=== PATIENT | male | born 1975 | race Caucasian/White ===

== ENCOUNTER 2018-05-14 10:30 | Outpatient (CLI) | payer MEDICARE, MEDICAID, SELFPAY ==
[2018-05-14 11:52] LABS: ALT 33 U/L (12-78); AST 21 U/L (15-37); Albumin 3.5 g/dL (3.4-5.0); Alkaline Phosphatase 92 U/L (46-116); Anion Gap 8.4 mmol/L (3-11); BUN 18 mg/dL (7-18); Bilirubin, Total 0.5 mg/dL (0.2-1.0); CO2 27.6 mmol/L (21.0-32.0); CREATININE 1.16 mg/dL (0.70-1.30); Calcium 8.8 mg/dL (8.5-10.1); Chloride 106 mmol/L (98-107); Cholesterol 132 mg/dL (50-200); Glucose 99 mg/dL (70-100); HDL Cholesterol 38 mg/dL (40-60); Potassium 4.3 mmol/L (3.5-5.1); Sodium 142 mmol/L (136-145); Total Protein 6.6 g/dL (6.4-8.2); Triglyceride 75 mg/dL (30-150)
[2018-05-14 12:40] LABS: LDL CHOLESTEROL 83 mg/dL (<100)
== END 2018-05-14 10:50 ==
PROVIDERS: PCP Nurse Practitioner; Visit Provider Nurse Practitioner
DX: E66.9 Obesity, unspecified (principal); E78.5 Hyperlipidemia, unspecified
CPT/HCPCS: 36415; 80053; 80061; 83721

== ENCOUNTER 2018-09-06 09:44 | Outpatient (CLI) | payer MEDICARE, MEDICAID, SELFPAY ==
[2018-09-06 11:38] LABS: ALT 64 U/L (12-78); AST 37 U/L (15-37); Alkaline Phosphatase 96 U/L (46-116); Anion Gap 11.1 mmol/L (3-11); BUN 16 mg/dL (7-18); Bilirubin, Total 0.9 mg/dL (0.2-1.0); CO2 27.9 mmol/L (21.0-32.0); CREATININE 1.28 mg/dL (0.70-1.30); Calcium 9.3 mg/dL (8.5-10.1); Chloride 104 mmol/L (98-107); Cholesterol 137 mg/dL (50-200); Glucose 98 mg/dL (70-100); HDL Cholesterol 35 mg/dL (40-60); LDL CHOLESTEROL 85 mg/dL (<100); Potassium 4.2 mmol/L (3.5-5.1); Sodium 143 mmol/L (136-145); Total Protein 7.3 g/dL (6.4-8.2); Triglyceride 110 mg/dL (30-150)
== END 2018-09-06 10:04 ==
PROVIDERS: PCP Nurse Practitioner; Visit Provider Nurse Practitioner Family
DX: F32.1 Major depressive disorder, single episode, moderate (principal); Z79.899 Other long term (current) drug therapy; R63.5 Abnormal weight gain
CPT/HCPCS: 36415; 80053; 80061; 83721

== ENCOUNTER 2019-05-21 08:48 | Outpatient (CLI) | payer MEDICARE, MEDICAID, SELFPAY ==
[2019-05-21 10:15] LABS: ALT 46 U/L (16-63); AST 29 U/L (15-37); Albumin 3.7 g/dL (3.4-5.0); Alkaline Phosphatase 91 U/L (46-116); Anion Gap 9.4 mmol/L (3-11); BUN 15 mg/dL (7-18); Bilirubin, Total 0.4 mg/dL (0.2-1.0); CO2 27.6 mmol/L (21.0-32.0); CREATININE 1.21 mg/dL (0.70-1.30); Calcium 8.9 mg/dL (8.5-10.1); Calculated LDL 62 mg/dL; Chloride 105 mmol/L (98-107); Cholesterol 121 mg/dL (<200); Glucose 100 mg/dL (74-106); HDL Cholesterol 31 mg/dL (40-60); Potassium 4.4 mmol/L (3.5-5.1); Sodium 142 mmol/L (136-145); Triglyceride 140 mg/dL (<150)
== END 2019-05-21 09:08 ==
PROVIDERS: PCP Nurse Practitioner; Visit Provider Nurse Practitioner Family
DX: F32.1 Major depressive disorder, single episode, moderate (principal); Z79.899 Other long term (current) drug therapy; R63.5 Abnormal weight gain; E78.6 Lipoprotein deficiency; E66.9 Obesity, unspecified
CPT/HCPCS: 36415; 80053; 80061

== ENCOUNTER 2020-04-29 04:09 | Outpatient (CLI) | payer MEDICARE, MEDICAID, SELFPAY ==
[2020-04-29 08:34] LABS: HCT 44.9 % (40.0-50.0); HGB 14.8 g/dL (13.5-17.5); MCH 30.6 pg (27.0-33.0); MCV 92.8 fL (80-95); MPV 9.2 fL (8.0-11.0); Platelet Count 311 10^3/uL (130-400); RBC 4.84 10^6/uL (4.36-5.78); RDW 13.4 % (11.8-14.1); RDW-SD 45.6 fL; WBC 10.96 10^3/uL (4.4-10.8)
[2020-04-29 08:48] LABS: Hemoglobin A1C 5.7 % (<5.7)
[2020-04-29 09:20] LABS: ALT 45 U/L (16-63); AST 28 U/L (15-37); Albumin 3.6 g/dL (3.4-5.0); Alkaline Phosphatase 81 U/L (46-116); Anion Gap 7.3 mmol/L (3-11); BUN 15 mg/dL (7-18); Bilirubin, Total 0.6 mg/dL (0.2-1.0); CO2 28.7 mmol/L (21.0-32.0); CREATININE 1.31 mg/dL (0.70-1.30); Calcium 8.9 mg/dL (8.5-10.1); Calculated LDL 125 mg/dL (<100); Chloride 105 mmol/L (98-107); Cholesterol 183 mg/dL (<200); Estimated GFR 58.91 (mL/min/1.73m2); Glucose 92 mg/dL (74-106); HDL Cholesterol 28 mg/dL (40-60); Potassium 4.4 mmol/L (3.5-5.1); Sodium 141 mmol/L (136-145); Total Protein 6.8 g/dL (6.4-8.2); Triglyceride 152 mg/dL (<150)
== END 2020-04-29 04:29 ==
PROVIDERS: PCP Nurse Practitioner; Visit Provider Nurse Practitioner
DX: E78.6 Lipoprotein deficiency (principal); E11.9 Type 2 diabetes mellitus without complications; I26.99 Other pulmonary embolism without acute cor pulmonale; G47.33 Obstructive sleep apnea (adult) (pediatric); E66.9 Obesity, unspecified
CPT/HCPCS: 36415; 80053; 80061; 85027; 83036

== ENCOUNTER 2020-12-09 02:23 | Outpatient (CLI) | payer MEDICARE, MEDICAID, SELFPAY ==
[2020-12-09 12:49] LABS: HCT 46.7 % (40.0-50.0); HGB 15.6 g/dL (13.5-17.5); MCHC 33.4 % (32.0-36.0); MCV 92.7 fL (80-95); MPV 9.4 fL (8.0-11.0); Platelet Count 353 10^3/uL (130-400); RBC 5.04 10^6/uL (4.36-5.78); RDW 13.1 % (11.8-14.1); RDW-SD 44.9 fL; WBC 15.97 10^3/uL (4.4-10.8)
[2020-12-09 13:56] LABS: ALT 86 U/L (16-63); AST 52 U/L (15-37); Albumin 3.6 g/dL (3.4-5.0); Alkaline Phosphatase 84 U/L (46-116); Anion Gap 11.9 mmol/L (3-11); BUN 15 mg/dL (7-18); Bilirubin, Total 0.5 mg/dL (0.2-1.0); CO2 27.1 mmol/L (21.0-32.0); CREATININE 1.1 mg/dL (0.70-1.30); Calculated LDL 111 mg/dL (<100); Chloride 104 mmol/L (98-107); Cholesterol 167 mg/dL (<200); Glucose 86 mg/dL (74-106); HDL Cholesterol 29 mg/dL (40-60); Potassium 4.1 mmol/L (3.5-5.1); Sodium 143 mmol/L (136-145); Total Protein 7.1 g/dL (6.4-8.2); Triglyceride 138 mg/dL (<150)
== END 2020-12-09 02:24 | disposition home or self-care (01) ==
LOC: LBO 02:23
PROVIDERS: PCP Nurse Practitioner; Visit Provider Nurse Practitioner
DX: I10 Essential (primary) hypertension (principal); F32.9 Major depressive disorder, single episode, unspecified; E66.9 Obesity, unspecified; E11.9 Type 2 diabetes mellitus without complications; E78.6 Lipoprotein deficiency; J69.0 Pneumonitis due to inhalation of food and vomit; G47.33 Obstructive sleep apnea (adult) (pediatric)
CPT/HCPCS: 36415; 80053; 80061; 85027; 83036

== ENCOUNTER 2020-12-29 04:06 | Outpatient (CLI) | payer MEDICARE, MEDICAID, SELFPAY ==
[2020-12-29 12:15] LABS: Abs Immature Grans 0.08 10^3/uL (0.0-0.06); Absolute Basophil Count 0.08 10^3/uL (0.0-0.2); Absolute Eosinophil Count 1.23 10^3/uL (0.0-0.7); Basophils % 0.6; ESR 20 mm/hr (0-15); Eosinophils % 9.2; HCT 45.7 % (40.0-50.0); Immature Grans % 0.6; Lymphocytes % 35.8; MCH 30.9 pg (27.0-33.0); MCHC 32.8 % (32.0-36.0); MCV 94.2 fL (80-95); MPV 9.3 fL (8.0-11.0); Neutrophils % 47.8; Nucleated RBC 0 %; Platelet Count 327 10^3/uL (130-400); RBC 4.85 10^6/uL (4.36-5.78); RDW 13.1 % (11.8-14.1); RDW-SD 45.5 fL; WBC 13.39 10^3/uL (4.4-10.8)
[2020-12-29 12:16] LABS: Absolute Lymphocyte Count 4.79 10^3/uL (1.2-3.4)
[2020-12-29 13:40] LABS: ALT 78 U/L (16-63); AST 47 U/L (15-37); Albumin 3.4 g/dL (3.4-5.0); Alkaline Phosphatase 90 U/L (46-116); Bilirubin, Direct 0.1 mg/dL (0.0-0.2); Bilirubin, Total 0.3 mg/dL (0.2-1.0); C-Reactive Protein 0.79 mg/dL (0.0-0.3); Total Protein 6.8 g/dL (6.4-8.2)
[2020-12-30 09:34] LABS: HBs Antibody, Quant <3.1 mIU/mL (See Note); Hepatitis B Surface Ab Negative (See Note)
[2020-12-30 09:46] LABS: Hepatitis B Surface Ag Negative (Negative)
[2020-12-30 10:06] LABS: Hepatitis C Ab w Rflx HCV PCR Negative (Negative)
[2020-12-30 10:30] LABS: Hep B Core Antibody Negative (Negative)
== END 2020-12-29 04:07 | disposition home or self-care (01) ==
PROVIDERS: PCP Nurse Practitioner; Visit Provider Nurse Practitioner
DX: R79.89 Other specified abnormal findings of blood chemistry (principal); D72.829 Elevated white blood cell count, unspecified; E66.9 Obesity, unspecified; J45.909 Unspecified asthma, uncomplicated
CPT/HCPCS: 36415; 80076; 85652; 86704; 86706; 86803; 87340; 85025; 86140

== ENCOUNTER 2021-01-29 18:07 | Outpatient (REF) | payer MEDICARE, MEDICAID, SELFPAY ==
[2021-01-31 01:36] LABS: COVID-19 RT-PCR UVMMC Result Negative (Negative)
== END 2021-01-29 18:08 | disposition home or self-care (01) ==
LOC: LBN 18:07
PROVIDERS: PCP Nurse Practitioner; Visit Provider Family Medicine
DX: Z20.822 Contact with and (suspected) exposure to COVID-19 (principal)
CPT/HCPCS: U0003; U0005

== ENCOUNTER 2021-02-05 21:54 | Inpatient (IN) | payer MEDICARE, MEDICAID, SELFPAY ==
--- NOTE | 2021-02-05 22:00 | RT.EKG_ITS ---
APPROVED REPORT Exam: Resting ECG Reason for Exam: sob Patient Location: E HR:103 bpm ECG Measurements Heart Rate 103 AXIS MA 164 P 44 QRSd 100 QRS 133 QT 359 T 49 QTc 471 Conclusion Sinus tachycardia...rate> 99 Probable left atrial enlargement...P >50mS, <-0.10mV V1 Right axis deviation...QRS axis (100,269). No STEMI. I have reviewed and interpreted ECG and agree with software generated interpretation.
[2021-02-05 22:02] VITALS: BP 147/94; PULSE 107; RESP 18; TEMP 36.8; O2SAT 95
--- NOTE | 2021-02-05 22:07 | W.ED.GENAD ---
Discharge Plan Disposition Patient Disposition: [facility] INPATIENT Condition: Stable Discharge Details Chief Complaint: SOB Clinical Impression: COPD exacerbation, Pneumonia Admit Date/Time: 02/06/21 00:22 Admit Provider: Aryan Prasad Attending Provider: Aryan Prasad Primary Care Provider: Marium Shetty ED Provider: Kaitlynn Faulkner Discharge Instructions Activity:: Activity as Tolerated Equipment/Supplies:: No Equipment Needed Diet:: As Tolerated Discharge Orders Discharge Orders: Discharge Order (Routine); Ordered 02/07/21 Ordered By: Roxie Crouch Discharge Data Discharge Date/Time-TO BE ENTERED AT DEPARTURE: 02/06/21 00:55 Medical Decision Making Patient is a pleasant 45-year-old male presenting today with chief complaint of shortness of breath. He reports that this began last week. He was seen by his primary care provider with concern for bronchitis. Patient was treated with a Z-Mitch and steroids. Despite this, his symptoms have progressively worsened. He describes having bilateral lower chest wall pain associated with cough. States that when he has severe coughing fits he can have some mild nausea. He denies any nausea right now. No vomiting. Denies any change in bowel or bladder habits. Past medical history is pertinent for noncompliance with CPAP, hypertension, depression, tobacco abuse, PE, MENDY, asthma, bipolar. Patient is not anticoagulated. On exam, patient appears acutely ill. He does have increased work of breathing. He has diffuse wheezing noted on exam. He has no lower extremity edema. No calf tenderness. He is diaphoretic. Vital signs significant for tachycardia from patient's heart rate of 107. Patient is on 2 L nasal oxygen maintaining 95%. Patient not typically on O2 at home. ECG reviewed by Dr. Jha. Tachycardic at 103, no acut ischemice changes noted. FINDINGS: Airway: Patent Lungs: Bilateral perihilar haziness and streaky-like opacities. Mild segmental bronchial wall thickening. Scattered patchy ground-glass airspace opacities are appreciated throughout the lungs. Pleural spaces: Unremarkable. No pleural effusion. No pneumothorax. Heart/Mediastinum: Unremarkable. No cardiomegaly. Bones/joints: No acute skeletal abnormality or aggressive osseous lesion. IMPRESSION: Findings favor scattered moderate interstitial and airspace disease, concerning for atypical viral pneumonia in the appropriate clinical setting. Labs reviewed. Patient is a white count of 18.4. Patient often has leukocytosis but this certainly is elevated for him. Platelet count of 412. D-dimer within normal limits. Normal coags. Potassium is low at 3.1, will replenish this orally. Patient does have transaminitis with elevated AST and ALT which is both baseline patient. Troponin within normal limits. Covid testing is negative. Reevaluated the patient. He continues to have some mild wheezing but feels improved after 2 DuoNeb and does sound slightly improved compared to when he initially presented. As the patient continued to have oxygen demand, plan to admit for continued evaluation and treatment. Consulted with Dr. Garcia who agrees to inpatient admission. Patient will be given Solu-Medrol, Rocephin and doxycycline. HPI General Mode of arrival: ambulatory. Date/Time Provider Initiated Documentation: 02/05/21 22:07. Limitations to Documentation: no limitations. Information obtained by: RN notes reviewed and old records reviewed. History of Present Illness 45 year old M presents to the emergency department with the chief complaint of shortness of breath, cough, described as moderate, Quality is described as aching, and is localized to the chest. Patient reports no radiation. Patient started experiencing this week(s) (1) and it has been intermittent (discomfort with cough). No relieving factors improve symptom(s), Movement worsens symptoms and Other factors that worsen symptoms (coughing) . Patient notes chest pain, cough, fever/chills, malaise and shortness of breath; denies nausea/vomiting and rash. Patient did receive the following treatments prior to arrival, other (azithromycin and prednisone) Related Data Home Medications Medication Instructions Recorded Confirmed albuterol sulfate 90 mcg/actuation 2 puff INHALATION Q4H PRN #3 03/20/20 02/06/21 aerosol inhaler inhaler atorvastatin 20 mg tablet 20 mg PO QHS #90 tab 04/28/20 02/06/21 budesonide-formoterol HFA 80 2 puff INHALATION BID #3 inhaler 04/28/20 02/06/21 mcg-4.5 mcg/actuation aerosol inhaler hydrochlorothiazide 25 mg tablet 25 mg PO DAILY #90 tab 05/19/20 02/06/21 aripiprazole 5 mg PO DAILY 02/06/21 02/06/21 venlafaxine 75 mg PO DAILY 02/06/21 02/06/21 levofloxacin 750 mg PO DAILY #5 tab 02/07/21 prednisone 40 mg PO DAILY #6 tab 02/07/21 Previous Rx's Medication Instructions Recorded albuterol sulfate 90 mcg/actuation 2 puff INHALATION Q4H PRN #3 03/20/20 aerosol inhaler inhaler atorvastatin 20 mg tablet 20 mg PO QHS #90 tab 04/28/20 budesonide-formoterol HFA 80 2 puff INHALATION BID #3 inhaler 04/28/20 mcg-4.5 mcg/actuation aerosol inhaler hydrochlorothiazide 25 mg tablet 25 mg PO DAILY #90 tab 05/19/20 levofloxacin 750 mg PO DAILY #5 tab 02/07/21 prednisone 40 mg PO DAILY #6 tab 02/07/21 Allergies Allergy/AdvReac Type Severity Reaction Status Date / Time sertraline Allergy Unknown PARADOXICAL Verified 02/06/21 00:20 REACTION General Stated Complaint: SOB VIDA: 2 Review of Systems Constitutional Constitutional: Reports as per HPI, Reports chills, Denies fever(s), Denies headache(s) and Reports lethargy ENT Ears, Nose, Mouth, and Throat: Reports dizziness (lightheaded with coughing) and Denies headache(s) Cardiovascular Cardiovascular: Reports as per HPI, Reports chest pain (with coughing), Reports lightheadedness, Denies radiating jaw, neck or arm pain, Reports dyspnea and Reports dyspnea on exertion (with coughing) Respiratory Respiratory: Reports as per HPI, Denies chest congestion, Denies cough, Denies pain on inspiration, Reports pain with cough, Reports dyspnea and Reports dyspnea on exertion (with coughing) Gastrointestinal Gastrointestinal: Reports as per HPI, Denies abdominal pain, Denies diarrhea, Denies nausea and Denies vomiting Genitourinary Genitourinary: Denies system reviewed and no additional complaints, except as documented (denies change in urinary habits) Musculoskeletal Musculoskeletal: Reports as per HPI and Denies back pain Integumentary/Breasts Skin/Breast: Reports as per HPI and Denies rash Neurologic Neurologic: Reports as per HPI, Reports dizziness (lightheaded with coughing) and Denies headache(s) [facility] Medical History Asthma Bipolar affective disorder (03/21/16) Chronic post-traumatic stress disorder Depressive disorder Depressive disorder (01/10/12) [facility] seen by Reji roy 08/14/13, 11/20/13,02/18/14 10/28/19 Ov with EMETERIO Terrell [facility] Essential hypertension Nicotine dependence (01/11/12) 3/4-1 PPD Obesity (BMI 30-39.9) MENDY (obstructive sleep apnea) Surgical History H/O umbilical hernia repair Family History Father Alcohol abuse Essential hypertension Sister Diabetes Mother Essential hypertension Social History Smoking/Tobacco Use Status: Current every day Tobacco: How many years used: 34 Smokeless tobacco user: chewing tobacco (quit) Quit status: has quit before Second Hand Exposure: Yes (as a child) Counseling given: other Details: pt declines help, I want to do it on my own Smoking risk assessment performed?: Yes Alcohol Intake: current Alcohol Intake frequency: other Details: > 6 ETOH 1 time a month Drug use: Never Substance use type: does not use Household members: friend(s) and none Housing: apartment Number of Children: 3 Communication Needs: None Do you need help understanding health information?: Always current occupation: disabled Pets and animals: No Do you think of yourself as: straight/heterosexual Current gender identity: male What is your relationship status?: never How often do you talk on the phone with friends or family?: three or more times per week How often do you get together with friends or relatives?: once per week How often do you attend mandaeism or church services?: decline to answer Do you belong to any clubs or organized social groups?: no Panel score (0-1 are the most socially isolated patients): 1 What type of physical activity do you participate in: none Krissy/Catholic: No preference Seatbelt use: sometimes Helmet use: Yes Drive intox or ride w/intox 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 Working smoke detector in home: Yes Fire extinguisher in home: Yes Carbon monox detector in home: Yes Do you feel safe at home: Yes Do you feel safe in your relationship?: Yes Would you like helpful sources: No Additional Social history: Gets help through [facility] Exam Const General: cooperative, comfortable, no acute distress, well developed, anxious and ill appearing acutely Nutritional Appearance: well nourished and obese Orientation: alert, awake and oriented x3 HENMT Head: normal to inspection Ears: hearing grossly normal bilaterally Mouth: moist mucous membranes Chest Chest: normal inspection of the chest, normal palpation of entire chest wall and no crepitus Resp Effort & Inspection: normal respiratory effort, able to speak in complete sentences, labored and uses accessory muscles Auscultation: no rales, no rhonchi and wheezes (diffuse) Cardio Rate: regular rate Rhythm: regular rhythm Heart Sounds: S1 normal and S2 normal GI Inspection: normal to inspection, no edema, non-distended and obesity Palpation: soft, no hepatosplenomegaly, not firm, no guarding, not rigid and nontender Auscultation: normal bowel sounds Skin General skin exam: no rashes or lesions noted Trauma: no lacerations or abrasions Neuro General: patient alert, patient awake and patient oriented x3 Cognition: normal cognition Speech: speech normal Extrem General: normal to inspection, capillary refill normal, no pedal edema and no calf tenderness Psych Appearance: grossly normal and well kempt Mental Status: mental status grossly normal Speech and Movement: speech and movement normal Course Vital Signs Vital signs: Vital Signs Temperature 36.8 C 02/05/21 22:02 Pulse 107 H 02/05/21 22:02 Respiratory Rate 18 02/05/21 22:02 Pulse Oximetry 95 02/05/21 22:02 Temperature 36.8 C 02/05/21 22:02 Temperature Source Temporal Artery Scan 02/05/21 22:02 Pulse 107 H 02/05/21 22:02 Respiratory Rate 18 02/05/21 22:02 Blood Pressure Position Sitting 02/05/21 22:02 Pulse Oximetry 95 02/05/21 22:02 Oxygen Delivery Method Room Air 02/05/21 22:02 Oxygen Flow Rate 0 02/05/21 22:02
[2021-02-05 22:08] VITALS: RESP 26
--- NOTE | 2021-02-05 22:15 | DI.RAD_ITS ---
Exam(s) XR PORTABLE CHEST AP EXAM: XR PORTABLE CHEST AP CLINICAL HISTORY: cough. TECHNIQUE: 2D digital imaging was performed. COMPARISON: CR PORTABLE CHEST ONE VIEW from 02/19/2016 FINDINGS: Heart size is normal. The mediastinum is not widened. Very subtle increased pulmonary markings, possibly exaggerated by portable technique but cannot exclu de the possibility early viral infiltrate. IMPRESSION: As above. Recommend nonportable PA and lateral views when clinically possible. I note that this patient had extensive infiltrates and was intubated in February 2016. DATA REPOSITORY: RADIATION DOSE DELIVERED: All CT scans at this facility use at least one of these dose optimization techniques: automated exposure control; mA and/or kV adjustment per patient size (includes targeted e xams where dose is matched to clinical indication); or iterative reconstruction.
[2021-02-05 22:45] LABS: HCT 45.2 % (40.0-50.0); HGB 14.8 g/dL (13.5-17.5); MCH 30.1 pg (27.0-33.0); MCHC 32.7 % (32.0-36.0); MCV 91.9 fL (80-95); MPV 9.7 fL (8.0-11.0); Nucleated RBC 0 %; Platelet Count 412 10^3/uL (130-400); RBC 4.92 10^6/uL (4.36-5.78); RDW 13.6 % (11.8-14.1); RDW-SD 46.1 fL; WBC 18.49 10^3/uL (4.4-10.8)
[2021-02-05 23:02] LABS: Absolute Basophil Count 0.18 10^3/uL (0.0-0.2); Absolute Eosinophil Count 0.37 10^3/uL (0.0-0.7); Absolute Lymphocyte Count 5.36 10^3/uL (1.2-3.4); Absolute Monocyte Count 0.37 10^3/uL (0.1-0.8); Atypical Lymphocytes % 3
[2021-02-05 23:03] LABS: ALT 72 U/L (16-63); AST 46 U/L (15-37); Albumin 3.5 g/dL (3.4-5.0); Alkaline Phosphatase 102 U/L (46-116); Anion Gap 8.2 mmol/L (3-11); BUN 14 mg/dL (7-18); Bilirubin, Total 0.4 mg/dL (0.2-1.0); CO2 30.8 mmol/L (21.0-32.0); CREATININE 1.2 mg/dL (0.70-1.30); Calcium 8.5 mg/dL (8.5-10.1); Chloride 102 mmol/L (98-107); Diff Comment Manual Differential; Glucose 118 mg/dL (74-106); Magnesium 2.2 mg/dL (1.8-2.4); Potassium 3.1 mmol/L (3.5-5.1); RBC Morphology Normal; Sodium 141 mmol/L (136-145); Total Protein 7.7 g/dL (6.4-8.2)
[2021-02-05 23:16] LABS: BE (Venous) 7 mmol/L (-2-3); HCO3 (Venous) 31 mmol/L (23-28); O2 Sat (Venous) 89 %; TCO2 (Venous) 27 mmol/L (24-29); pCO2 (Venous) 46 mmHg (41-51); pH (Venous) 7.44 (7.31-7.41); pO2 (Venous) 53 mmHg
[2021-02-05 23:17] LABS: Lactate 0.9 mmol/L (0.6-1.4)
[2021-02-05 23:19] LABS: PTT Activated 24.1 sec (21.0-27.5); Prothrombin Time 9.9 sec (9.3-11.0)
--- NOTE | 2021-02-05 23:23 | DI.VRAD_ITS ---
PROCEDURE INFORMATION: Exam: XR Chest Exam date and time: 02/05/2021 10:19 PM Age: 45 years old Clinical indication: Other: Cough TECHNIQUE: Imaging protocol: XR of the chest. Views: 1 view. COMPARISON: CT CHEST FOR PULMONARY EMBOLUS 04/12/2016 1:46 PM FINDINGS: Airway: Patent Lungs: Bilateral perihilar haziness and streaky-like opacities. Mild segmental bronchial wall thickening. Scattered patchy ground-glass airspace opacities are appreciated throughout the lungs. Pleural spaces: Unremarkable. No pleural effusion. No pneumothorax. Heart/Mediastinum: Unremarkable. No cardiomegaly. Bones/joints: No acute skeletal abnormality or aggressive osseous lesion. IMPRESSION: Findings favor scattered moderate interstitial and airspace disease, concerning for atypical viral pneumonia in the appropriate clinical setting. Dictated and Authenticated by: Valdemar Galvan MD. Ordering:JAVI Calderón MD
[2021-02-05 23:37] LABS: D-Dimer 427 ng/mlFEU (<500)
[2021-02-05 23:48] LABS: COVID-19 PCR Negative (Negative); Source Nasal/Nares
[2021-02-05 23:54] VITALS: PULSE 105; RESP 18; O2SAT 95
[2021-02-06] VITALS (13 sets, daily range): BP systolic 133–157; BP diastolic 72–88; PULSE 2–104; RESP 1–32; TEMP 36.2–37.6; O2SAT 91–98
[2021-02-06] LABS: Troponin I < 0.05 ng/mL (<0.06)
[2021-02-06] MEDS: Potassium Chloride 20 MEQ TABCR 40 MEQ PO
[2021-02-06] MEDS: cefTRIAXone 1 GM/50 ML BAG IVPB (00:36)
[2021-02-06] MEDS: Doxycycline Hyclate 100 MG CAP PO ×2 (00:37→21:20)
[2021-02-06] MEDS: methylPREDNISolone SUCC 125 MG VIAL IVP (00:37)
--- NOTE | 2021-02-06 01:00 | HPE_ITS ---
Date of service: 02/06/21 Time of Service: 01:00 Assessment and Plan Assessment and plan (1) Atypical pneumonia: Status: Acute Assessment and plan: Continue Rocephin and doxycycline. Check Legionella and mycoplasma studies. Check urine for strep antigen. Continue with corticosteroids with prednisone 40 mg daily. Continue DuoNeb treatments 4 times daily and albuterol every 2 hours as needed. Attempt to obtain sputum culture and sputum for mycoplasma. Of note patient has been vaccinated with the Pfizer vaccine and received both doses in October 2020. He has had 2 nasal swabs for SARS-CoV-2 PCR testing about a week apart and has had no known exposures to COVID-19 and no known exposures to anyone with respiratory symptoms. I feel that we can treat this patient is no longer being in AOC or PUI. (2) COPD exacerbation: Status: Acute Assessment and plan: As above (3) Obstructive sleep apnea syndrome: Status: Acute Assessment and plan: I tried to educate the patient about the importance of being compliant with his CPAP treatment and reducing his risk for cardiac arrhythmias and heart failure and stroke. (4) Noncompliance with CPAP treatment: Status: Acute (5) Essential hypertension: Status: Acute Assessment and plan: Patient reports she is not currently on any medications for his blood pressure. Again I tried to educate him about the importance of good blood pressure control and reducing risk for strokes and hear t attacks and congestive heart failure. (6) Elevated LFTs: Status: Acute Assessment and plan: Unclear etiology. Possibly due to to viral pneumonia. Possibly due to atypical pneumonia such as mycoplasma or Legionella. If LFTs do not improve consider further work-up for chronic liver disease. Of note patient does drink alcohol but limits himself to an 18 pack about every 6 months History of Present Illness History of Present Illness Chief Complaint: cough Narrative: 45-year-old morbidly obese male with a history of asthma/COPD, chronic tobacco use of 1 pack/day for over 30 years, PTSD, depression, anxiety disorder, hyperlipidemia, essential hypertension, obstructive sleep apnea (for which he quit using his CPAP because he states that his mask did not fit right) who presented to the emergency department with 1 week history of dry nonproductive cough. Patient saw his PCP last week was prescribed prednisone and a Z-Mitch which she completed on Monday of this week. However over the last 3 days his cough is gotten progressively worse and caused him to have retching and vomiting. He denies any chest tightness or pain or pressure but has had increased wheezing and increased dyspnea. He denies any fever or rigors but admits to being diaphoretic. Evaluation emergency department included routine labs occluding CBC that demonstrated a white count of 18,000 with no anemia. VBG's were obtained and showed normal pH and normal PCO2. Chemistry clued a CMP that showed elevated transaminases with an AST of 46, ALT 72 and a low potassium of 3.1 with normal BUN and creatinine and normal magnesium. Blood lactate was 0.9. Procalcitonin was not performed. Chest x-ray shows bilateral perihilar haziness and streaky- like opacities with mild segmental bronchial wall thickening and scattered patchy groundglass airspace opacities throughout the lungs. No pleural effusion. No cardiomegaly. Review of Systems All systems reviewed & are unremarkable except as noted in HPI and below Constitutional Constitutional: Reports snoring Cardiovascular Cardiovascular: Reports system reviewed and no additional complaints, except as documented and Reports dyspnea on exertion Respiratory Respiratory: Reports cough, Denies hemoptysis, Reports dyspnea on exertion, Reports snoring, Reports wheezing and Reports other (coughing whitish mucous) Gastrointestinal Gastrointestinal: Reports system reviewed and no additional complaints, except as documented Allergic/Immunologic Allergic/Immunologic: Reports wheezing [facility] Medical History (Updated 02/06/21 @ 02:25 by Aryan Prasad) Asthma Bipolar affective disorder (03/21/16) Chronic post-traumatic stress disorder Depressive disorder Depressive disorder (01/10/12) [facility] seen by Reji roy 08/14/13, 11/20/13,02/18/14 10/28/19 Ov with EMETERIO Terrell [facility] Essential hypertension Nicotine dependence (01/11/12) 3/-1 PPD Obesity (BMI 30-39.9) MENDY (obstructive sleep apnea) Surgical History (Updated 02/06/21 @ 02:18 by Aryan Prasad) H/O umbilical hernia repair Family History Father Alcohol abuse Essential hypertension Sister Diabetes Mother Essential hypertension Social History (Updated 02/06/21 @ 02:21 by Aryan Prasad) Smoking/Tobacco Use Status: Current every day Tobacco: How many years used: 34 Smokeless tobacco user: chewing tobacco (quit) Quit status: has quit before Second Hand Exposure: Yes (as a child) Counseling given: other Details: pt declines help, I want to do it on my own Smoking risk assessment performed?: Yes Alcohol Intake: current Alcohol Intake frequency: other Details: > 6 ETOH 1 time a month Drug use: Never Substance use type: does not use Household members: friend(s) and none Housing: apartment Number of Children: 3 Communication Needs: None Do you need help understanding health information?: Always current occupation: disabled Pets and animals: No Do you think of yourself as: straight/heterosexual Current gender identity: male What is your relationship status?: never How often do you talk on the phone with friends or family?: three or more times per week How often do you get together with friends or relatives?: once per week How often do you attend restorationist or episcopal services?: decline to answer Do you belong to any clubs or organized social groups?: no Panel score (0-1 are the most socially isolated patients): 1 What type of physical activity do you participate in: none Krissy/Muslim: No preference Seatbelt use: sometimes Helmet use: Yes Drive 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 ride 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 Working smoke detector in home: Yes Fire extinguisher in home: Yes Carbon monox detector in home: Yes Do you feel safe at home: Yes Do you feel safe in your relationship?: Yes Would you like helpful sources: No Additional Social history: Gets help through [facility] Meds Allergies and Home Medications Allergies Allergy/AdvReac Type Severity Reaction Status Date / Time sertraline Allergy Unknown PARADOXICAL Verified 02/06/21 00:20 REACTION Home Medications Medication Instructions Recorded Confirmed Type lamotrigine 200 mg tablet 200 mg PO DAILY 02/11/19 02/06/21 History aripiprazole 20 mg tablet 20 mg PO DAILY 01/07/20 02/06/21 History albuterol sulfate 90 mcg/actuation 2 puff INHALATION Q4H PRN #3 03/20/20 02/06/21 Rx aerosol inhaler inhaler atorvastatin 20 mg tablet 20 mg PO QHS #90 tab 04/28/20 02/06/21 Rx budesonide-formoterol HFA 80 2 puff INHALATION BID #3 inhaler 04/28/20 02/06/21 Rx mcg-4.5 mcg/actuation aerosol inhaler hydrochlorothiazide 25 mg tablet 25 mg PO DAILY #90 tab 05/19/20 02/06/21 Rx azithromycin 250 mg tablet See Rx Instructions PO .COMPLEX #6 01/29/21 01/29/21 Rx tab Exam Narrative Exam Narrative: Morbidly obese male who has a plethoric appearance to his face. He has a falsetto voice. HEENT is remarkable for being edentulous. Oropharynx has a Mallampati class III opening. He has no exudates and no erythema of his oropharynx. Neck is short obese supple nontender without adenopathy. No JVD. Normal carotid pulses. Lungs with diffuse inspiratory and expiratory wheezes in all lung de [place]. No rales and no rhonchi Heart is regular rate and rhythm without appreciable murmur rub or gallop Abdomen obese soft nontender with a well-healed scar around the umbilicus. Extremities without peripheral cyanosis or edema Neuro exam grossly intact no focal motor or sensory deficits. No focal cranial nerve deficits. Rectal genitalia exam deferred. Results Labs Result diagrams: 02/05/21 22:25 02/05/21 22:25 Labs: Laboratory Results - last 24 hr 02/05/21 02/05/21 02/05/21 22:25 22:25 22:25 WBC 18.49 H RBC 4.92 Hgb 14.8 Hct 45.2 MCV 91.9 MCH 30.1 MCHC 32.7 RDW 13.6 Plt Count 412 H MPV 9.7 Immature Gran % See Differential Neutrophils % 66.0 Lymphocytes % 26.0 Atypical Lymphs % 3 Monocytes % 2.0 Eosinophils % 2.0 Basophils % 1.0 Nucleated RBC % 0 Absolute Neutrophils 12.20 H Absolute Lymphocytes 5.36 H Absolute Monocytes 0.37 Absolute Eosinophils 0.37 Absolute Basophils 0.18 RBC Morphology Normal PT 9.9 INR 1.0 APTT 24.1 D-Dimer 427 VBG pH VBG pCO2 VBG pO2 VBG HCO3 VBG Total CO2 VBG O2 Saturation VBG Base Excess VBG Lactate Sodium 141 Potassium 3.1 L Chloride 102 Carbon Dioxide 30.8 Anion Gap 8.2 BUN 14 Creatinine 1.2 Estimated GFR/1.73 m2 >= 60.00 Glucose 118 H Calcium 8.5 Magnesium 2.2 Total Bilirubin 0.4 AST 46 H ALT 72 H Alkaline Phosphatase 102 Troponin I Total Protein 7.7 Albumin 3.5 COVID-19 Source SARS-CoV-2 (PCR) 02/05/21 02/05/21 02/05/21 22:50 23:11 23:11 WBC RBC Hgb Hct MCV MCH MCHC RDW Plt Count MPV Immature Gran % Neutrophils % Lymphocytes % Atypical Lymphs % Monocytes % Eosinophils % Basophils % Nucleated RBC % Absolute Neutrophils Absolute Lymphocytes Absolute Monocytes Absolute Eosinophils Absolute Basophils RBC Morphology PT INR APTT D-Dimer VBG pH 7.44 H VBG pCO2 46 VBG pO2 53 VBG HCO3 31 H VBG Total CO2 27 VBG O2 Saturation 89 VBG Base Excess 7 H VBG Lactate 0.9 Sodium Potassium Chloride Carbon Dioxide Anion Gap BUN Creatinine Estimated GFR/1.73 m2 Glucose Calcium Magnesium Total Bilirubin AST ALT Alkaline Phosphatase Troponin I Total Protein Albumin COVID-19 Source Nasal/Nares SARS-CoV-2 (PCR) Negative 02/05/21 23:15 WBC RBC Hgb Hct MCV MCH MCHC RDW Plt Count MPV Immature Gran % Neutrophils % Lymphocytes % Atypical Lymphs % Monocytes % Eosinophils % Basophils % Nucleated RBC % Absolute Neutrophils Absolute Lymphocytes Absolute Monocytes Absolute Eosinophils Absolute Basophils RBC Morphology PT INR APTT D-Dimer VBG pH VBG pCO2 VBG pO2 VBG HCO3 VBG Total CO2 VBG O2 Saturation VBG Base Excess VBG Lactate Sodium Potassium Chloride Carbon Dioxide Anion Gap BUN Creatinine Estimated GFR/1.73 m2 Glucose Calcium Magnesium Total Bilirubin AST ALT Alkaline Phosphatase Troponin I < 0.05 Total Protein Albumin COVID-19 Source SARS-CoV-2 (PCR) Last Vital Signs Temp 36.8 C 02/06/21 00:41 Pulse 97 H 02/06/21 00:41 Resp 30 H 02/06/21 00:41 BP 135/72 02/06/21 00:41 Pulse Ox 91 L 02/06/21 00:41
[2021-02-06] MEDS: Normal Saline Flush 10 ML SYR IVP ×4 (01:47→17:51)
[2021-02-06] MEDS: Acetaminophen 325 MG TAB PO (01:47)
[2021-02-06] MEDS: Albuterol 2.5 MG/3 ML INH SOLN VIAL UPD (02:16)
[2021-02-06] MEDS: Pantoprazole 40 MG TABCR PO (07:31)
[2021-02-06] MEDS: ARIPiprazole 5 MG TAB 20 MG PO (07:37)
[2021-02-06] MEDS: lamoTRIgine 100 MG TAB 200 MG PO (07:37)
[2021-02-06] MEDS: Enoxaparin 40 MG/0.4 ML SYR SC ×2 (07:38→21:20)
[2021-02-06] MEDS: Benzonatate 200 MG CAP PO ×3 (07:38→21:21)
[2021-02-06] MEDS: hydroCHLOROthiazide 25 MG TAB PO (07:38)
[2021-02-06] MEDS: predniSONE 20 MG TAB 40 MG PO (07:38)
[2021-02-06 07:41] LABS: Absolute Basophil Count 0.05 10^3/uL (0.0-0.2); Absolute Lymphocyte Count 2.02 10^3/uL (1.2-3.4); Basophils % 0.3; Eosinophils % 0.5; HCT 46.4 % (40.0-50.0); Immature Grans % 1.3; Lymphocytes % 13.4; MCH 30.3 pg (27.0-33.0); MCHC 32.3 % (32.0-36.0); MCV 93.7 fL (80-95); MPV 9.5 fL (8.0-11.0); Monocytes % 0.9; Neutrophils % 83.6; Nucleated RBC 0 %; Platelet Count 407 10^3/uL (130-400); RBC 4.95 10^6/uL (4.36-5.78); RDW 13.3 % (11.8-14.1); RDW-SD 45.6 fL; WBC 15.07 10^3/uL (4.4-10.8)
[2021-02-06 07:45] LABS: Absolute Eosinophil Count 0.08 10^3/uL (0.0-0.7); Absolute Monocyte Count 0.14 10^3/uL (0.1-0.8)
[2021-02-06] MEDS: Budesonide/Formoterol 80/4.5 6.9 GM 60 PUFF INH IH ×2 (07:49→21:27)
[2021-02-06 07:53] LABS: ALT 67 U/L (16-63); AST 44 U/L (15-37); Albumin 3.4 g/dL (3.4-5.0); Alkaline Phosphatase 107 U/L (46-116); Anion Gap 11.8 mmol/L (3-11); BUN 14 mg/dL (7-18); Bilirubin, Total 0.4 mg/dL (0.2-1.0); C-Reactive Protein 4.53 mg/dL (0.0-0.3); CO2 24.2 mmol/L (21.0-32.0); CREATININE 1.2 mg/dL (0.70-1.30); Calcium 8.7 mg/dL (8.5-10.1); Chloride 103 mmol/L (98-107); Glucose 210 mg/dL (74-106); Potassium 3.9 mmol/L (3.5-5.1); Sodium 139 mmol/L (136-145); Total Protein 7.3 g/dL (6.4-8.2)
[2021-02-06 08:26] LABS: Procalcitonin < 0.1 ng/mL
[2021-02-06] MEDS: Albuterol/Ipratropium 3 ML UPD VIAL UPD ×3 (09:52→21:20)
--- NOTE | 2021-02-06 12:14 | PHA.REVIEW ---
Pharmacy Admission Review - Admission Clinical Review (Last Updated 02/06/21 @ 02:18 by Aryan Prasad) COPD exacerbation (Acute) Atypical pneumonia (Acute) Elevated LFTs (Acute) Noncompliance with CPAP treatment (Acute) Essential hypertension (Acute) Obstructive sleep apnea syndrome (Acute 01/11/12) sertraline Allergy (Unknown, Verified 02/06/21 00:20) PARADOXICAL REACTION Resuscitation Status Full Code Height 5 ft 7 in Weight 144.968 kg - Renal Dosing Renal Dosing: BUN 14 mg/dL (7-18) 02/06/21 06:29 Creatinine 1.2 mg/dL (0.70-1.30) 02/06/21 06:29 Medications needing adjustments: Reviewed - Anticoagulation Anticoagulation: Hgb 15.0 g/dL (13.5-17.5) 02/06/21 06:29 Hct 46.4 % (40.0-50.0) 02/06/21 06:29 Plt Count 407 10^3/uL (130-400) H 02/06/21 06:29 INR 1.0 (0.9-1.1) 02/05/21 22:25 Creatinine 1.2 mg/dL (0.70-1.30) 02/06/21 06:29 DVT Prophylaxis: Intervened Medications: Enoxaparin (adjusted dose to 40mg BID given BMI is >40, provider aware) - Opiate Usage Evaluate Pain Scale/Pains Meds: N/A - Relevant Labs Sodium 139 mmol/L (136-145) 02/06/21 06:29 Potassium 3.9 mmol/L (3.5-5.1) D 02/06/21 06:29 Chloride 103 mmol/L (98-107) 02/06/21 06:29 Magnesium 2.2 mg/dL (1.8-2.4) 02/05/21 22:25 C-Reactive Protein 4.53 mg/dL (0.0-0.3) H 02/06/21 06:29 Electrolytes, C-Reactive P, ESR: Reviewed - DM Control DM Control: Glucose 210 mg/dL (74-106) H D 02/06/21 06:29 Insulin Dosing: Reviewed (this is most likely due to IV steroids, will continue to monitor) - Heart Failure/RI Heart Failure/RI: Troponin I < 0.05 ng/mL (<0.06) 02/05/21 23:15 EF%, DARSHANA's, B-Blockers, Diuretics: Reviewed - BP Control BP Control: Blood Pressure 157/83 Blood Pressure 143/88 Blood Pressure 134/86 Blood Pressure 135/72 If elevated: Reviewed List meds needing interventions: HCTZ is on patient's home med list but he has not filled since 05/2020 - Qtc Review If Elevated: Reviewed List meds needing interventions: QTc 471 on admission - IV to PO Switch IV Medications: Reviewed - Home Meds Home Med List reviewed: Intervened Relevent Home Meds Not ordered & why?: Per patient's external fill history he has not been taking abilify 20mg, lamictal 200, HCTZ, atorvastatin for several months - in the details of each of these on the home med it states home medication placed on hold at doctor's office and lists his PCP -- I haven't seen this before but will be more vigilant... it seems the provider was still able to order them despite there being hold instructions, will bring this to director/IS' attention; patient did get abilify 20mg x1 and lamotrigine 200mg x1 this AM before I was able to thoroughly review his med rec, provider is aware - Current meds Current Medication Order Review: Reviewed (doxy + ceftriaxone for PNA, although seems to be viral (procalcitonin <1))
[2021-02-06] MEDS: Normal Saline 500 ML 100 ML IV (12:30)
[2021-02-06] MEDS: DOXYCYCLINE 100 MG in Normal Saline 100 ML IVPB (12:30)
[2021-02-06] MEDS: cefTRIAXone 2 GM/50 ML BAG IVPB (21:20)
[2021-02-06] MEDS: Atorvastatin 20 MG TAB PO (21:21)
[2021-02-07 06:00] VITALS: O2SAT 99
[2021-02-07 06:54] VITALS: O2SAT 95
[2021-02-07 06:55] VITALS: BP 154/93; PULSE 79; RESP 20; TEMP 36.6; O2SAT 95
[2021-02-07] MEDS: predniSONE 20 MG TAB 40 MG PO (07:22)
[2021-02-07] MEDS: Doxycycline Hyclate 100 MG CAP PO (07:22)
[2021-02-07] MEDS: Enoxaparin 40 MG/0.4 ML SYR SC (07:22)
[2021-02-07] MEDS: hydroCHLOROthiazide 25 MG TAB PO (07:22)
[2021-02-07] MEDS: Benzonatate 200 MG CAP PO (07:23)
[2021-02-07] MEDS: Pantoprazole 40 MG TABCR PO (07:23)
[2021-02-07 07:37] VITALS: PULSE 84; RESP 20; RESP 4; O2SAT 93
[2021-02-07] MEDS: Albuterol/Ipratropium 3 ML UPD VIAL UPD (07:37)
[2021-02-07 07:44] VITALS: PULSE 86; RESP 20; RESP 4; O2SAT 97
[2021-02-07] MEDS: Budesonide/Formoterol 80/4.5 6.9 GM 60 PUFF INH IH (07:44)
--- NOTE | 2021-02-07 10:39 | W.PM.DS.N ---
Date of service: 02/07/21 Time of Service: 10:39 DS: Diagnosis Discharge Diagnosis (1) Atypical pneumonia: Status: Acute (2) COPD exacerbation: Status: Acute (3) Obstructive sleep apnea syndrome: Status: Acute (4) Noncompliance with CPAP treatment: Status: Acute (5) Essential hypertension: Status: Acute (6) Elevated LFTs: Status: Acute Discharge Plan Disposition Patient Disposition: HOME Condition: Stable Discharge Details Reason For Visit: PNEUMONIA Admit Date/Time: 02/06/21 00:22 Admit Provider: Aryan Prasad Attending Provider: Aryan Prasad Primary Care Provider: Angely Shettyyce Hospital Course Hospital Course: This is a 45-year-old morbidly obese male with a history of asthma/COPD, chronic tobacco use of 1 pack/day for over 30 years, PTSD, depression, anxiety disorder, hyperlipidemia, essential hypertension, obstructive sleep apnea (for which he quit using his CPAP because he states that his mask did not fit right) who presented to the emergency department with 1 week history of dry nonproductive cough. Patient saw his PCP last week was prescribed prednisone and a Z-Mitch which was completed last Monday. However his cough is gotten progressively worse and caused him to have retching and vomiting. Evaluation emergency department included routine labs occluding CBC that demonstrated a white count of 18,000 with no anemia. VBG's were obtained and showed normal pH and normal PCO2. Chemistry clued a CMP that showed elevated transaminases with an AST of 46, ALT 72 and a low potassium of 3.1 with normal BUN and creatinine and normal magnesium. Blood lactate was 0.9. Procalcitonin was not performed. Chest x-ray shows bilateral perihilar haziness and streaky-like opacities with mild segmental bronchial wall thickening and scattered patchy groundglass airspace opacities throughout the lungs. No pleural effusion. He was started on doxycycline and rocephin and given IV steroids in the ED. hospitalist services was contacted and admitted to med/surg for further management. He improved with the treatment and was weaned off oxygen. he was feeling much improved, afebrile, eating and drinking well. he is stable for discharge to home. He will be discharged on levaquin for 5 days and 3 more days of prednisone to complete a 5 day burst. He will be referred to pulmonary for further outpatient management and evaluation. discussed with Dr Lewis Home Meds and New Rx's Prescriptions: New prednisone 20 mg Tablet 40 mg PO DAILY Qty: 6 RF: 0 levofloxacin 750 mg tablet 750 mg PO DAILY Qty: 5 RF: 0 Continued atorvastatin 20 mg tablet 20 mg PO QHS Qty: 90 RF: 3 Hold Instructions: Home Medication placed on hold at Doctor's office budesonide-formoterol [Symbicort] 80-4.5 mcg/actuation HFA aerosol inhaler 2 puff Inhalation BID Qty: 3 RF: 3 hydrochlorothiazide 25 mg tablet 25 mg PO DAILY Qty: 90 RF: 3 Hold Instructions: Home Medication placed on hold at Doctor's office albuterol sulfate [ProAir HFA] 90 mcg/actuation HFA aerosol inhaler 2 puff Inhalation Q4H PRN Qty: 3 RF: 11 venlafaxine 37.5 mg capsule,extended release 24hr 75 mg PO DAILY RF: 0 aripiprazole 5 mg tablet 5 mg PO DAILY RF: 0 Discharge Instructions Instructions: Pneumonia (DC) Additional Instructions: complete course of steroids and antibiotics as prescribed even if you feel better. follow up with pulmonary outpatient as you should have further outpatient evaluation, PFT's etc. per their recommendations. drink 6-8 glasses of water daily to stay well hydrated. take all your medication as directed. Stand Alone Forms: Nursing Discharge Form Referrals: Bharti Reyez MD [ [facility] STAFF PHYSICIAN] - (Please call Monday to make an appointment [phone]) Marium Shetty NP [Primary Care Provider] - (Please call Monday to make a follow up appointment for 1-2 weeks) Activity:: Activity as Tolerated Equipment/Supplies:: No Equipment Needed Diet:: As Tolerated Discharge Orders Discharge Orders: Discharge Order (Routine); Ordered 02/07/21 Ordered By: Roxie Crouch DS: Summary Time Spent with Patient providing and/or coordinating discharge services: Less than 30 minutes Status at Discharge Functional status at discharge: independent ambulation Overall status at discharge: patient is progressing back to baseline Mental Status: mental status grossly normal Speech and Movement: speech and movement normal Mood: congruent mood Affect: normal affect Exam Const General: cooperative, comfortable, no acute distress and well developed Nutritional Appearance: well nourished and obese Orientation: alert, awake and oriented x3 HENMT Head: normal to inspection Ears: hearing grossly normal bilaterally Mouth: moist mucous membranes Chest Chest: normal inspection of the chest Resp Effort & Inspection: normal respiratory effort and able to speak in complete sentences Auscultation: no rales and no rhonchi Cardio Rate: regular rate Rhythm: regular rhythm Heart Sounds: S1 normal and S2 normal GI Inspection: normal to inspection, non-distended and obesity Palpation: soft and nontender Auscultation: normal bowel sounds Skin General skin exam: no rashes or lesions noted Neuro General: patient alert, patient awake and patient oriented x3 Cognition: normal cognition Speech: speech normal Extrem General: normal to inspection and no pedal edema Psych Appearance: grossly normal Mental Status: mental status grossly normal Speech and Movement: speech and movement normal Mood: congruent mood Affect: normal affect DS: Data Vitals/I&O Vitals and I&O: Vital Signs Temperature 36.6 C 02/07/21 06:55 Temperature Source Tympanic 02/07/21 06:55 Pulse 86 02/07/21 07:44 Pulse Rhythm Regular 02/07/21 04:46 Pulse 104 H 02/06/21 00:10 Respiratory Rate 20 02/07/21 07:44 Respiratory Effort Non-Labored 02/07/21 04:46 Respiratory Depth Normal 02/07/21 04:46 Respiratory Pattern Normal 02/07/21 04:46 Blood Pressure 154/93 H 02/07/21 06:55 Blood Pressure Mean 88 02/06/21 00:02 Blood Pressure Position Sitting 02/05/21 22:02 Pulse Oximetry 97 02/07/21 07:44 Oxygen Delivery Method Room Air 02/07/21 07:37 Oxygen Flow Rate 0 02/07/21 07:37 Pain Level 0 02/07/21 06:55 Comment 02/06/21 15:01 Intake & Output 02/06/21 02/06/21 02/07/21 11:59 23:59 11:59 Intake Total 740 / 2626.667 1886.667 / 2626.667 600 / 600 Output Total 1950 / 3450 1500 / 3450 800 / 800 Balance -1210 / -823.333 386.667 / -823.333 -200 / -200 Weight 144.968 kg 143.426 kg Intake: IV .667 186.667 / 206.667 Oral 720 / 2420 1700 / 2420 600 / 600 Output: Urine 1950 / 3450 1500 / 3450 800 / 800 Other: Urine Color Yellow Straw Yellow Urine Appearance Clear Clear Clear Urine Odor Normal Normal Normal Comment Void x1 in the toilet. Void x1 in the toilet. Voiding Methods Toilet Toilet Toilet [facility] Medical History Asthma Bipolar affective disorder (03/21/16) Chronic post-traumatic stress disorder Depressive disorder Depressive disorder (01/10/12) [facility] seen by Reji roy 08/14/13, 11/20/13,02/18/14 10/28/19 Ov with EMETERIO Terrell [facility] Essential hypertension Nicotine dependence (01/11/12) 3/4-1 PPD Obesity (BMI 30-39.9) MENDY (obstructive sleep apnea) Surgical History H/O umbilical hernia repair Family History Father Alcohol abuse Essential hypertension Sister Diabetes Mother Essential hypertension Social History Smoking/Tobacco Use Status: Current every day Tobacco: How many years used: 34 Smokeless tobacco user: chewing tobacco (quit) Quit status: has quit before Second Hand Exposure: Yes (as a child) Counseling given: other Details: pt declines help, I want to do it on my own Smoking risk assessment performed?: Yes Alcohol Intake: current Alcohol Intake frequency: other Details: > 6 ETOH 1 time a month Drug use: Never Substance use type: does not use Household members: friend(s) and none Housing: apartment Number of Children: 3 Communication Needs: None Do you need help understanding health information?: Always current occupation: disabled Pets and animals: No Do you think of yourself as: straight/heterosexual Current gender identity: male What is your relationship status?: never How often do you talk on the phone with friends or family?: three or more times per week How often do you get together with friends or relatives?: once per week How often do you attend buddhist or zoroastrian services?: decline to answer Do you belong to any clubs or organized social groups?: no Panel score (0-1 are the most socially isolated patients): 1 What type of physical activity do you participate in: none Krissy/Hoahaoism: No preference Seatbelt use: sometimes Helmet use: Yes Drive intox or ride w/intox bulk delivery driver: No Working smoke detector in home: Yes Fire extinguisher in home: Yes Carbon monox detector in home: Yes Do you feel safe at home: Yes Do you feel safe in your relationship?: Yes Would you like helpful sources: No Additional Social history: Gets help through [facility]
[2021-02-07 20:19] LABS: Legionella Ag Detection Urine Negative (Negative)
[2021-02-08 23:31] LABS: Streptococcus Pneumoniae Ag, U Negative (Negative)
== END 2021-02-07 11:39 | disposition home or self-care (01) | DRG 194 ==
LOC: ER 02-06 00:28 → MS 02-06 00:54
PROVIDERS: Admitting Provider Internal Medicine; Emergency Provider Physician Assistant; PCP Nurse Practitioner; Visit Provider Internal Medicine
DX: J18.9 Pneumonia, unspecified organism (principal); J44.1 Chronic obstructive pulmonary disease with (acute) exacerbation; J44.0 Chronic obstructive pulmonary disease with (acute) lower respiratory infection; Z68.42 Body mass index [BMI] 45.0-49.9, adult; I10 Essential (primary) hypertension; G47.33 Obstructive sleep apnea (adult) (pediatric); E66.01 Morbid (severe) obesity due to excess calories; F17.210 Nicotine dependence, cigarettes, uncomplicated; F43.10 Post-traumatic stress disorder, unspecified; F41.9 Anxiety disorder, unspecified; E78.5 Hyperlipidemia, unspecified; Z91.19 Patient's noncompliance with other medical treatment and regimen; E87.6 Hypokalemia; F43.12 Post-traumatic stress disorder, chronic; F31.9 Bipolar disorder, unspecified; R74.8 Abnormal levels of other serum enzymes; Z20.822 Contact with and (suspected) exposure to COVID-19
CPT/HCPCS: 36415; 80053; 82805; 84145; 87449; 87635; 93005; 94640; 96365; 96375; 99285; J1650; 71045; 83605; 83735; 84484; 85025; 85379; 85610; 85730; 86140; 87899; 93010; 99222; 99238; J0696; J2930; J7512; J7613; J7620

== ENCOUNTER 2021-03-15 03:35 | Outpatient (CLI) | payer MEDICARE, MEDICAID, SELFPAY ==
[2021-03-15] MEDS: Albuterol HFA 18 GM 200 PUFF INH IH (10:52)
[2021-03-15] MEDS: Inhaler, Assist Device 1 EACH MC (10:52)
--- NOTE | 2021-03-15 12:53 | W.PFT ---
Date of service: 03/15/21 Time of Service: 10:06 Pulmonary Function Test Result Requesting Provider Jermanhene Indications: Dyspnea Interpretation Spirometry: No airflow limitation. No bronchodilator effect. Restrictive appearing spirometry. Lung Volumes: Normal lung volumes. Diffusion Capacity: Normal Diffusion Airway Pressure: Normal airways resistance Impression Normal pulmonary function tests with likely pseudorestriction due to obesity given normal lung volumes. Note: When compared to 04/14/17 the FEV1 and FVC are significantly decreased. When compared to 02/28/14 the TLC and DLCO are decreased. Clinical Correlation therefore is recommended.
== END 2021-03-15 03:36 | disposition home or self-care (01) ==
LOC: RT 03:35
PROVIDERS: PCP Nurse Practitioner; Visit Provider Student in an Organized Health Care Education/Training Program
DX: J44.9 Chronic obstructive pulmonary disease, unspecified (principal); J45.909 Unspecified asthma, uncomplicated; R06.09 Other forms of dyspnea; E66.9 Obesity, unspecified
CPT/HCPCS: 94060; 94726; 94729

== ENCOUNTER → 2021-04-01 13:46 | Outpatient (BNVA) | payer MEDICARE, MEDICAID, SELFPAY | PROVIDERS: PCP Nurse Practitioner; Referring Provider Nurse Practitioner; Visit Provider Surgery | DX: K42.9 Umbilical hernia without obstruction or gangrene (principal); J44.9 Chronic obstructive pulmonary disease, unspecified; F17.200 Nicotine dependence, unspecified, uncomplicated; Z91.14 Patient's other noncompliance with medication regimen; I10 Essential (primary) hypertension; E66.01 Morbid (severe) obesity due to excess calories; G47.33 Obstructive sleep apnea (adult) (pediatric); Z68.41 Body mass index [BMI] 40.0-44.9, adult | CPT/HCPCS: 99202; 99214 ==

== ENCOUNTER 2021-04-19 01:14 | Outpatient (CLI) | payer MEDICARE, MEDICAID, SELFPAY ==
--- NOTE | 2021-04-19 07:30 | DI.US_ITS ---
APPROVED REPORT EXAM: Comprehensive 2D, Doppler, and color-flow Echocardiogram Patient Location: Out-Patient Robotic Welder: Seema Plaza RDCS (AE) Indications: WINTER Other Information Study Quality: Fair. Technically limited study due to body habitus. Conclusion Normal left ventricular wall thickness and chamber size. Estimated ejection fraction is 55 to 60%. Wall motion is normal Normal right ventricular size and systolic function Both atria are normal in size Trileaflet aortic valve without stenosis or regurgitation Normal mitral valve with trace to mild regurgitation Normal tricuspid valve with trace regurgitation. Right ventricular systolic pressure could not be es timated Wall motion Left Ventricle The left ventricle is normal size. The left ventricular systolic function is normal. The left ventric ular ejection fraction is within the normal range. There is normal left ventricular wall thickness. T here is normal LV segmental wall motion. There is no ventricular septal defect visualized. LVEF is 55 -60%. Right Ventricle The right ventricle is normal size. The right ventricular systolic function is normal. Atria The left atrium size is normal. The right atrium size is normal. The interatrial septum is intact wit h no evidence for an atrial septal defect. Aortic Valve The aortic valve is normal in structure. Aortic valve is trileaflet. There is no aortic valvular sten osis. No aortic regurgitation is present. Mitral Valve The mitral valve is normal in structure. No evidence of mitral valve stenosis. Trace to mild mitral r egurgitation. There is no evidence of mitral valve prolapse. Tricuspid Valve The tricuspid valve is normal in structure. There is no tricuspid valve stenosis. Trace tricuspid reg urgitation. Unable to assess PA pressure. Pulmonic Valve Pulmonic valve is not well visualized. There is no pulmonic valvular stenosis. There is no pulmonic v alvular regurgitation. Great Vessels The aortic root is normal in size. The ascending aorta is normal in size. Aortic arch is not well vis ualized. The IVC collapses <50% with inspiration. Pericardium There is no pericardial effusion. 2D Dimensions IVSD d PLAX 1.02 cm M: 0.6-1.2 LV Vol A2C d MOD 101.4 mL LVPW d PLAX 1.05 cm M: 0.6 - 1.2 LV Vol A4C d MOD 152.9 mL LVID d PLAX 4.77 cm M: 4.2 - 5.8 LA vol/ BSA A4C s A-L 20.0 mL/m2 LVDs 3.30 cm M: 2.5 - 4.0 LA Area A4C s MOD 16.97 cm2 Ao Root d 2.78 cm M: 3.1 - 3.7 LV EF A4C MOD 55.1 % RA Area A4C 15.33 cm2 LV EF A2C MOD 56.2 % RA Vol/ BSA A4C s A-L 16.5 mL/m2 LV EF Biplane MOD 55.4 % Ao Asc Diam d 3.17 cm M: 2.6 - 3.4 SV 70.82 mL LV EF Teichholz 57.3 % SV Index 28.50 mL/m2 LVEF (Cho's) 55.35 % M: 52 - 72 LV Volume 89.71 mL M: 62 - 150 LV Volume Index 36.17 mL/m2 M: 34 - 74 LV Vol Biplane MOD 127.9 mL FS 30.05 % M-Mode TAPSE 2.37 cm (M/F) >1.7 LV Diastology MV E' medial 0.099 (>0.07 m/s) E/A Ratio 1.3 LV E/e MED 9.50 (<14) MV E Vmax 0.94 (0.4-1.3 m/s) MV E' lateral 0.132 (>0.1 m/s) MV A Vmax 0.70 (0.4-1.3 m/s) LV E/e LAT 7.10 (<14) MV E/A Ratio 1.31 MV E/E' medial 9.53 MV E/E' lateral 7.15 Aortic Valve LVOT Area 3.52 cm2 AoV Area Vmax 2.51 cm2 LVOT Vmax 1.31 m/s AoV Area/ BSA (Vmax) 1.01 cm2/m2 LVOT Mean Patrick. 0.90 m/s CORNELIA Mean Patrick. 2.38 cm2 LVOT Peak Grad 6.9 mmHg CORNELIA Mean Patrick. Index 0.96 cm2/m2 LVOT Mean Grad 3.7 mmHg LVOT VTI 0.233 m LVOT Diam s 2.10 cm AoV Vmax 1.84 m/s Velocity Ratio 0.71 AoV Mean Patrick. 1.32 m/s AoV Peak Grad 13.5 mmHg LVOT SV 82.00 mL AoV Mean Grad 7.7 mmHg AoV VTI 0.316 m AoV Area VTI 2.60 cm2 AoV Area/ BSA (VTI) 1.04 cm/m2 Mitral Valve MV DT 186 (160-240 msec) MV PHT 54 msec MV Area PHT 4.09 cm2 MV VTI 0.288 m MV Area VTI 2.84 (4.0-6.0 cm2) Pulmonary Valve PV Vmax 1.19 (0.5-1.5 m/s) RVOT Peak Gr. 3.52 mmHg PV Peak Grad 5.7 mmHg RVOT Mean Gr. 1.70 mmHg PV Mean Grad 2.7 mmHg RVOT VTI 0.181 m PV VTI 0.197 m RVOT Vmax 0.94 m/s
--- NOTE | 2021-04-19 14:18 | DI.CT_ITS ---
Exam(s) CT CHEST WO EXAM: CT CHEST WO CLINICAL HISTORY: f/u recent pneumonia, past ARDS assess for fibrosiS,Z87.09,J18.9,J44.9. TECHNIQUE: Multi planar reconstructions were performed. CONTRAST MATERIAL: None COMPARISON: CT CT CHEST AND ABDOMEN W from 02/26/2016 FINDINGS: CHEST: I note that the patient was intubated on the CT scan which was performed February 2016. Present study: LUNGS: There is mild pleural based infiltrate in the lateral basal segments of both lower lobes, catie gn appearance and possibly scarring from the prior larger infiltrates which are evident that these lo cations but also possibly interval new inflammatory process. Mild increased markings in the right mi ddle lobe are noted, possibly remnant from larger infiltrate at this location. There are no pleural effusions. No significant focal findings in trachea and mainstem bronchi. MEDIASTINUM: There is no obvious hilar nor mediastinal adenopathy. Visualized thyroid unremarkable.No obvious axillary adenopathy CARDIAC: Heart size is normal. There is no pericardial effusion.Caliber of the thoracic aorta is wit hin normal limits. VISUALIZED UPPER ABDOMEN:Hepatic steatosis. No adrenal masses OSSEOUS: No significant osseous lesions.. IMPRESSION: 1. There is mild subpleural infiltrate in the lateral basal segments of both lower lobes and in the r ight middle lobe. Given the appearance of the CT scan of 2015 (patient was intubated at that time), there is a possibly that these findings represent residual scarring in areas of larger infiltrate whi ch were present at that time. The other possibility is that these are new or inflammatory processes, not associated with adenopathy nor pleural effusions 2. Hepatic steatosis is noted. RADIATION DOSE DELIVERED: 887.02mGy.cm Total DLP DATA REPOSITORY: All CT scans at this facility are submitted to the National Radiology Data Registry (NRDR) Dose Index Registry (DIR) with the [employer] (ACR). RADIATION OPTIMIZATION: All CT scans at this facility use at least one of these dose optimization te chniques: automated exposure control; mA and/or kV adjustment per patient size (includes targeted exa ms where dose is matched to clinical indication); or iterative reconstruction.
== END 2021-04-19 01:34 ==
PROVIDERS: PCP Nurse Practitioner; Visit Provider Student in an Organized Health Care Education/Training Program
DX: Z86.711 Personal history of pulmonary embolism (principal); R91.8 Other nonspecific abnormal finding of lung field; R06.09 Other forms of dyspnea; R93.9 Diagnostic imaging inconclusive due to excess body fat of patient; I34.0 Nonrheumatic mitral (valve) insufficiency
CPT/HCPCS: 71250; 93306

== ENCOUNTER 2021-04-23 01:22 | Emergency (ER) | payer MEDICARE, MEDICAID, SELFPAY ==
--- NOTE | 2021-04-23 01:25 | ED.GENADUL_ITS ---
Discharge Plan Disposition Patient Disposition: HOME Condition: Improving Discharge Details Clinical Impression: COPD exacerbation Primary Care Provider: Marium Shetty ED Provider: Irvin Farnsworth [place] Meds and New Rx's Prescriptions: New levofloxacin 750 mg tablet 750 mg PO DAILY Qty: 4 RF: 0 prednisone 10 mg tablets,dose pack See Rx Instructions .ROUTE .COMPLEX Qty: 48 RF: 0 Continued budesonide-formoterol [Symbicort] 80-4.5 mcg/actuation HFA aerosol inhaler 2 puff Inhalation BID Qty: 3 RF: 3 atorvastatin 20 mg tablet 20 mg PO QHS Qty: 90 RF: 3 Hold Instructions: Home Medication placed on hold at Doctor's office Spiriva Respimat 1.25 mcg/actuation mist 2 puff inhalation DAILY Qty: 4 RF: 8 albuterol sulfate [ProAir HFA] 90 mcg/actuation HFA aerosol inhaler 2 puff Inhalation Q4H PRN Qty: 3 RF: 11 mirtazapine [Remeron] 15 mg tablet 15 mg PO DAILY RF: 0 aripiprazole [Abilify] 10 mg tablet 10 mg PO DAILY RF: 0 venlafaxine [Effexor XR] 150 mg capsule,extended release 24hr 150 mg PO DAILY RF: 0 Discharge Instructions Instructions: COPD (Chronic Obstructive Pulmonary Disease) (ED) Additional Instructions: Take your prednisone and antibiotic as directed. Use albuterol inhaler every 4 hours. Rest and stay hydrated. Quarantine until Covid testing results have returned. Follow-up with primary care next week to be sure you are improving. Return to ED over the weekend if any worsening symptoms or problems. Referrals: Marium Shetty, [employer] [Primary Care Provider] - Medical Decision Making Patient presenting with increasing shortness of breath, cough, sputum production and thickness over a couple of weeks. Continues to smoke and has history of asthma/COPD. Continues to use inhalers. Has chest pain but only with cough. No fever. Likely COPD exacerbation. Will obtain EKG, chest x-ray, labs and treat with nebs and steroids. Will reevaluate for disposition. Patient feels better after nebulizer treatment. EKG is unchanged from previous. Chest x-ray without evidence of pneumonia per my review and preliminary radiology review. Laboratory studies unremarkable including negative troponin. Patient will be continued on steroids as well as started on Levaquin for COPD exacerbation. He will continue his albuterol rescue inhaler 2 puffs every 4 hours as well as his maintenance inhalers. We will swab for Covid and flu prior to discharge. Patient to return home for quarantine until testing results have returned. Follow-up with primary care next week for recheck. Return to ED over the weekend if any changes or problems. Medical Records Medical records reviewed: Yes I reviewed the patient's medical records. Lab Data Lab results reviewed: Yes I reviewed the patient's lab results. ECG Data Attestation: I personally reviewed and interpreted this ECG (s) as follows: Prior ECG tracings: available for review Interpretation: see EKG HPI General Mode of arrival: ambulatory . Date/Time Provider Initiated Documentation: 04/23/21 01:22 . Limitations to Documentation: no limitations . Information obtained by: patient, RN notes reviewed and old records reviewed . HPI Narrative: Patient presents to ED with increasing shortness of breath, cough, increased sputum production and thickness over the last couple of weeks. He has chest pain with coughing only. He has continued his inhalers. He is using his albuterol about every 4 hours. He does continue to smoke. He is immunized against Covid but not flu. He denies having fever or other URI type symptoms. He relates this to an episode of vomiting about 3 weeks ago where he feels he aspirated. He does have a history of pneumonia as well as asthma and COPD. He was most recently treated with steroids and antibiotic about 2 months ago. He had increased shortness of breath over the last 24 hours and came into the ED for evaluation. He denies any abdominal complaints, vomiting, diarrhea. Related Data Home Medications Medication Instructions Recorded Confirmed albuterol sulfate 90 mcg/actuation 2 puff INHALATION Q4H PRN #3 03/20/20 04/23/21 aerosol inhaler inhaler budesonide-formoterol HFA 80 2 puff INHALATION BID #3 inhaler 04/28/20 04/23/21 mcg-4.5 mcg/actuation aerosol inhaler atorvastatin 20 mg tablet 20 mg PO QHS #90 tab 02/23/21 04/23/21 tiotropium bromide 1.25 2 puff INHALATION DAILY #4 g 03/08/21 04/23/21 mcg/actuation mist for inhalation aripiprazole 10 mg tablet 10 mg PO DAILY 04/02/21 04/23/21 mirtazapine 15 mg tablet 15 mg PO DAILY 04/02/21 04/23/21 venlafaxine 150 mg 150 mg PO DAILY 04/02/21 04/23/21 capsule,extended release 24 hr levofloxacin 750 mg PO DAILY #4 tab 04/23/21 prednisone See Rx Instructions .ROUTE 04/23/21 .COMPLEX #48 dose pk Previous Rx's Medication Instructions Recorded albuterol sulfate 90 mcg/actuation 2 puff INHALATION Q4H PRN #3 03/20/20 aerosol inhaler inhaler budesonide-formoterol HFA 80 2 puff INHALATION BID #3 inhaler 04/28/20 mcg-4.5 mcg/actuation aerosol inhaler atorvastatin 20 mg tablet 20 mg PO QHS #90 tab 02/23/21 tiotropium bromide 1.25 2 puff INHALATION DAILY #4 g 03/08/21 mcg/actuation mist for inhalation levofloxacin 750 mg PO DAILY #4 tab 04/23/21 prednisone See Rx Instructions .ROUTE 04/23/21 .COMPLEX #48 dose pk Allergies Allergy/AdvReac Type Severity Reaction Status Date / Time sertraline Allergy Unknown PARADOXICAL Verified 04/23/21 01:31 REACTION General VIDA: 2 Review of Systems Narrative: 04/01 Review of Systems completed and is negative except as stated above in HPI (Systems reviewed: Const, Eyes, ENT, Resp, CV, GI, , MSK, Skin, Neuro) PFSH Medical History Asthma-COPD overlap syndrome Bipolar affective disorder (03/21/16) Chronic post-traumatic stress disorder Depressive disorder (01/10/12) [facility] seen by Reji roy 08/14/13, 11/20/13,02/18/14 10/28/19 Ov with EMETERIO Terrell [facility] Essential hypertension Nicotine dependence (01/11/12) 3/4-1 PPD Obesity (BMI 30-39.9) MENDY (obstructive sleep apnea) Pulmonary embolism (03/21/16) Surgical History H/O umbilical hernia repair Family History (Updated 03/08/21 @ 10:53 by Lawanda Trejo) Father Alcohol abuse Essential hypertension Sister Diabetes Mother Essential hypertension Lung disease Cancer Maternal Grandmother Heart disease Asthma Social History Smoking/Tobacco Use Status: Current every day Tobacco Type: cigarettes Smoking packs per day: 1 Smoking cigarettes per day: 20.0 Years smoked: 35 Smoking pack- years: 35.00 Tobacco: How many years used: 35 Quit status: has quit before Second Hand Exposure: Yes (as a child) Counseling given: other Details: pt declines help, I want to do it on my own Smoking risk assessment performed?: Yes Alcohol Intake: current Alcohol Intake frequency: other Details: > 6 ETOH 1 time a month Drug use: Never Substance use type: does not use Household members: friend(s) and none Housing: apartment Number of Children: 3 Communication Needs: None Do you need help understanding health information?: Always current occupation: disabled Pets and animals: No Do you think of yourself as: straight/heterosexual Current gender identity: male What is your relationship status?: never How often do you talk on the phone with friends or family?: three or more times per week How often do you get together with friends or relatives?: once per week How often do you attend sikh or confucianism services?: decline to answer Do you belong to any clubs or organized social groups?: no Panel score (0-1 are the most socially isolated patients): 1 What type of physical activity do you participate in: none Krissy/Synagogue: No preference Seatbelt use: sometimes Helmet use: Yes Drive intox or ride w/intox cart driver: No Working smoke detector in home: Yes Fire extinguisher in home: Yes Carbon monox detector in home: Yes Do you feel safe at home: Yes Do you feel safe in your relationship?: Yes Would you like helpful sources: No Additional Social history: Gets help through [facility] Exam Narrative Exam Narrative: Const: Morbidly obese male in NAD. HEENT: NC/AT. Normal facial exam. Eyes: Normal conjunctiva and sclera. Neck: Supple. Trachea midline. Lungs: Slightly tachypneic with decreased breath sounds throughout as well as wheezing. Cor: RRR without murmur/gallop. Good radial pulses. GI: Soft. NT/ND. No guarding or rebound. Neuro: A+O x 3. Normal speech, mentation, gait. Cranial nerves II - XII grossly intact. No gross motor or sensory deficit. Ext: No C/C/E. Skin: Warm and dry without rash.
[2021-04-23 01:28] VITALS: BP 159/102; PULSE 101; RESP 24; TEMP 36.4; O2SAT 99
--- NOTE | 2021-04-23 01:30 | DI.RAD_ITS ---
Exam(s) XR CHEST 2V PA LATERAL EXAM: XR CHEST 2V PA LATERAL CLINICAL HISTORY: cough, SOB TECHNIQUE: 2D digital imaging was performed. COMPARISON: CR,XR XR PORTABLE CHEST AP from 02/05/[address] CHEST WO from 04/19/2021 FINDINGS: MEDIASTINUM: Normal. HEART: Normal. PULMONARY VASCULATURE: Normal. LUNGS: Clear. PLEURAL SPACE: No pleural effusion or pneumothorax. BONE:Unremarkable for age. IMPRESSION: No acute abnormality. DATA REPOSITORY: RADIATION DOSE DELIVERED:
--- NOTE | 2021-04-23 01:30 | RT.EKG_ITS ---
APPROVED REPORT Exam: Resting ECG Reason for Exam: SOB Patient Location: E HR:99 bpm ECG Measurements Heart Rate 99 AXIS NE 140 P 43 QRSd 102 QRS 170 QT 361 T 39 QTc 463 Conclusion Sinus rhythm...normal P axis, V-rate 60- 99 There are no significant changes compared to prior EKG performed on 02/05/2021 at 22:13.
[2021-04-23 01:37] VITALS: RESP 24
[2021-04-23] MEDS: Albuterol 2.5 MG/3 ML INH SOLN VIAL UPD (01:45)
[2021-04-23] MEDS: Albuterol/Ipratropium 3 ML UPD VIAL UPD (01:45)
[2021-04-23] MEDS: methylPREDNISolone SUCC 125 MG VIAL IVP (01:45)
[2021-04-23 02:15] VITALS: RESP 8
[2021-04-23 02:16] LABS: Abs Immature Grans 0.08 10^3/uL (0.0-0.06); Absolute Basophil Count 0.11 10^3/uL (0.0-0.2); Absolute Eosinophil Count 1.16 10^3/uL (0.0-0.7); Absolute Monocyte Count 0.92 10^3/uL (0.1-0.8); Absolute Neutrophil Count 6.76 10^3/uL (1.2-6.7); Basophils % 0.8; Eosinophils % 8.2; HGB 14.4 g/dL (13.5-17.5); Immature Grans % 0.6; MCV 93.8 fL (80-95); MPV 9.4 fL (8.0-11.0); Monocytes % 6.5; Neutrophils % 47.9; Nucleated RBC 0 %; Platelet Count 328 10^3/uL (130-400); RDW 13.7 % (11.8-14.1); RDW-SD 47.6 fL; WBC 14.12 10^3/uL (4.4-10.8)
[2021-04-23 02:17] LABS: Absolute Lymphocyte Count 5.08 10^3/uL (1.2-3.4)
[2021-04-23 02:33] LABS: ALT 59 U/L (16-63); AST 44 U/L (15-37); Albumin 3.3 g/dL (3.4-5.0); Alkaline Phosphatase 94 U/L (46-116); Anion Gap 6.7 mmol/L (3-11); BUN 14 mg/dL (7-18); Bilirubin, Total 0.3 mg/dL (0.2-1.0); CO2 30.3 mmol/L (21.0-32.0); CREATININE 1.1 mg/dL (0.70-1.30); Calcium 8.3 mg/dL (8.5-10.1); Chloride 104 mmol/L (98-107); Diff Comment Agrees w/ Instrument; Glucose 123 mg/dL (74-106); Potassium 3.7 mmol/L (3.5-5.1); RBC Morphology Normal; Sodium 141 mmol/L (136-145); Total Protein 6.9 g/dL (6.4-8.2)
[2021-04-23 02:41] LABS: Troponin I < 0.05 ng/mL (<0.06)
[2021-04-23] MEDS: levoFLOXacin 500 MG, levoFLOXacin 250 MG 750 MG PO (03:29)
--- NOTE | 2021-04-23 03:34 | DI.VRAD_ITS ---
PROCEDURE INFORMATION: Exam: XR Chest Exam date and time: 04/23/2021 1:41 AM Age: 45 years old Clinical indication: Other: SOB TECHNIQUE: Imaging protocol: XR of the chest. Views: 2 views. COMPARISON: CT CHEST WO 04/19/2021 2:24 PM FINDINGS: Lungs: Few basilar opacities likely atelectatic. This is probably comparable to prior chest CT findings. No lobar consolidation. Pleural spaces: Unremarkable. No pleural effusion. No pneumothorax. Right hemidiaphragmatic eventration. Heart/Mediastinum: Unremarkable. No cardiomegaly. Bones/joints: Spine degenerative changes. IMPRESSION: There are few bilateral basilar linear opacities which are likely secondary to atelectasis. Dictated and Authenticated by: Sánchez Lugo MD. Ordering:DORIE Bryan MD
[2021-04-23 03:53] VITALS: BP 144/74; PULSE 84; RESP 20; TEMP 37.4; O2SAT 97
[2021-04-23 20:10] LABS: Influenza A RNA Result Negative (Negative); Influenza B RNA Result Negative (Negative); RSV RNA Result Negative (Negative)
[2021-04-24 09:25] LABS: COVID-19 RT-PCR UVMMC Result Negative (Negative)
--- NOTE | 2021-04-24 18:26 | NUR.NOTE ---
patient notified of negative covid test results.
== END 2021-04-23 03:57 | disposition home or self-care (01) ==
PROVIDERS: Emergency Provider Emergency Medicine; PCP Nurse Practitioner
DX: J44.1 Chronic obstructive pulmonary disease with (acute) exacerbation (principal); R06.02 Shortness of breath; R05.1 Acute cough; J45.909 Unspecified asthma, uncomplicated; F17.210 Nicotine dependence, cigarettes, uncomplicated; Z20.822 Contact with and (suspected) exposure to COVID-19; Z03.818 Encounter for observation for suspected exposure to other biological agents ruled out
CPT/HCPCS: 36415; 80053; 87631; 93005; 94640; 96374; 99285; U0003; U0005; 71046; 83735; 84484; 85025; 93010; J2930; J7613; J7620

== ENCOUNTER 2021-11-09 02:42 | Outpatient (CLI) | payer MEDICARE, MEDICAID, SELFPAY ==
[2021-11-09 08:24] LABS: Abs Immature Grans 0.09 10^3/uL (0.0-0.06); Absolute Eosinophil Count 1.33 10^3/uL (0.0-0.7); Absolute Lymphocyte Count 4.77 10^3/uL (1.2-3.4); Absolute Monocyte Count 0.99 10^3/uL (0.1-0.8); Basophils % 0.7; Eosinophils % 9.2; HCT 48.4 % (40.0-50.0); HGB 15.6 g/dL (13.5-17.5); Immature Grans % 0.6; Lymphocytes % 32.9; MCH 30.2 pg (27.0-33.0); MCHC 32.2 % (32.0-36.0); MCV 94 fL (80-95); MPV 9.4 fL (8.0-11.0); Monocytes % 6.8; Neutrophils % 49.8; Platelet Count 300 10^3/uL (130-400); RBC 5.17 10^6/uL (4.36-5.78); RDW 13.4 % (11.8-14.1); WBC 14.49 10^3/uL (4.4-10.8)
[2021-11-09 08:25] LABS: Absolute Neutrophil Count 7.22 10^3/uL (1.2-6.7)
[2021-11-09 09:02] LABS: Hemoglobin A1C 6.1 % (<5.7)
[2021-11-09 09:52] LABS: ALT 62 U/L (16-63); AST 39 U/L (15-37); Albumin 3.5 g/dL (3.4-5.0); Alkaline Phosphatase 106 U/L (46-116); Anion Gap 9.2 mmol/L (3-11); BUN 14 mg/dL (7-18); Bilirubin, Total 0.5 mg/dL (0.2-1.0); CO2 28.8 mmol/L (21.0-32.0); Calcium 8.5 mg/dL (8.5-10.1); Calculated LDL 132 mg/dL (<100); Chloride 104 mmol/L (98-107); Cholesterol 184 mg/dL (<200); Glucose 114 mg/dL (74-106); HDL Cholesterol 30 mg/dL (40-60); Potassium 4.3 mmol/L (3.5-5.1); Sodium 142 mmol/L (136-145); Triglyceride 111 mg/dL (<150)
== END 2021-11-09 02:43 | disposition home or self-care (01) ==
LOC: LBO 02:43
PROVIDERS: PCP Nurse Practitioner; Visit Provider Nurse Practitioner
DX: E66.01 Morbid (severe) obesity due to excess calories (principal); E78.6 Lipoprotein deficiency; J45.909 Unspecified asthma, uncomplicated; R73.03 Prediabetes
CPT/HCPCS: 36415; 80053; 80061; 83036; 85025

== ENCOUNTER 2021-12-21 15:04 | Outpatient (REF) | payer MEDICARE, MEDICAID, SELFPAY ==
[2021-12-23 10:57] LABS: COVID-19 RT-PCR UVMMC Result Negative (Negative)
== END 2021-12-21 15:05 | disposition home or self-care (01) ==
LOC: LBN 15:04
PROVIDERS: PCP Nurse Practitioner; Visit Provider Nurse Practitioner
DX: Z20.822 Contact with and (suspected) exposure to COVID-19 (principal); J32.9 Chronic sinusitis, unspecified
CPT/HCPCS: U0003

== ENCOUNTER 2021-12-27 21:51 | Emergency (ER) | payer MEDICARE, MEDICAID, SELFPAY ==
[2021-12-27] VITALS (16 sets, daily range): BP systolic 140–160; BP diastolic 71–104; PULSE 85–93; RESP 8–29; TEMP 36.3; O2SAT 89–99
--- OUTSIDE RECORDS SUMMARY | 2021-12-27 21:58 | XMS_ITS | Encounter Summary ---
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 Anyone needing support may call our Warmline and speak to a trained peer. This is especially helpfulto those who may not be able to travel to our centers. As part of our Warmline service, we call Members of the community to offer our support. Warmline operates seven days a week from 5 P.M. to 10 P.M. To utilize this service, call [phone] or ([place] toll-free). Patient InstructionsBess Pool MD - 03/16/2016 12:57 PM EDT PATIENT DISCHARGE INSTRUCTIONS Vital Signs: Vital Signs Temp: 36.8 ??C (98.2 ??F) Temp Source: Oral Heart Rate: 87 Resp: 17 BP: (!) 134/92 BP Method: Automatic SpO2: 97 % Operations and Procedures: None Important Lab Data: Psychiatry Labs: Preg: No results found for: HCGQUAL, HCGQUANT Heme: No results found for: WBC, HGB, HCT, PLATELET, MCV, NEUTROABS No results found for: HA1C, SEDRATE Chem: No results found for: NA, K, CL, CO2, BUN, GLUCOSE, GLUCFASTING No results found for: CALCIUM, MAGNESIUM, PHOS LFTs: No results found for: ALT, AST, GGT, ALKPHOS, BILITOT, AMMONIA Coags: No results found for: PTT, PT, INR Thyroid: No results found for: TSH, [id number], TT4 Lipids and HgbA1C: Lab Results Component Value Date TRIG 327 (H) 02/20/2016 No results found for: HA1C Vit Lvls: No results found for: [id number], SFOLATE UA: No results found for: GLUCOSEU, KETONESUA, PROTEINUADIP, BLOODUADIP, LEUKOESTERUA, NITRATEUA, WBCUA (May not represent most recent UA results. See eD-H labs for more details.) Tox: No results found for: ETHANOL, ACTMNPHEN, SALICYLATE, LEAD No results found for: UDAUSCREEN Rx Lvls: No results found for: LITHIUM, CARBAMAZEPIN, VALPROATE, LAMOTRIGINE, CLOZAPINE Pending Lab Data at Discharge: None Discharge Disposition: Home to sister April Primary Care Physician: ANEL WORTHY, ANY [phone] Special Physician Instructions: Follow up on Xarelto: 15mg BID until 03/24, then 20mg daily for at least 3 months and then to be reassessed per medicine Follow up on pleuritic pain, chest xray if persist at physician's discretion. Please consider increasing Lamotrigine on March 28, 2016 Special Instructions Provided to Paxton Arguello: Call your doctor, your local mental health center, or your local emergency room if you develop worsening symptoms of depression, anxiety, thoughts of harming yourself, thoughts of harming others, or any other decline in your overall condition. [facility] Emergency Services: [facility] area ([place] and [facility]): / [phone] [facility] and [facility]): / [phone] [facility] Emergency Services: [phone] [facility] Central Access Services: [phone] [facility] Main Line: [phone] Activity level: no restrictions from psychiatry Diet: no restrictions from psychiatry Driving: do not drive if sedated by medications Medications have been reviewed with the patient and the patient understands the use and side effectsof these medications as evidenced by discussions on interdisciplinary rounds. Follow up appointments not otherwise mentioned below: Appointment with dr. Reji Whipple on March 28 at 2:30PM documented in this encounter Medications at Time of Discharge Medication Sig Dispensed Refills Start Date End Date buPROPion (WELLBUTRIN XL) Take 300 mg by mouth 0 300 mg Tablet Sustained every morning. Release 24 hr lamoTRIgine (LAMICTAL) 25 Take 2 tablets by 30 tablet 0 mg Tablet mouth daily. fluticasone-salmeterol Inhale 2 puffs into 1 Inhaler 12 02/18 (ADVAIR HFA) 115-21 the lungs 2 times mcg/actuation HFA Aerosol daily. Inhaler melatonin 3 mg Tablet Take 3 tablets by 0 016 mouth nightly. traZODone (DESYREL) 50 mg Take 1 tablet by 90 tablet 3 02/18 Tablet mouth nightly. rivaroxaban (XARELTO) 10 Take 1.5 tablets by 24 tablet 0 03/24/2016 mg Tablet mouth 2 times daily for 8 days. documented as of this encounter Progress Notes Soraya Tobias RN - 03/17/2016 11:39 AM EDT Psychiatric Nursing Discharge Note Patient Completed Relapse Prevention Plan: Yes Patient aware of follow-up appointments: Yes Patient evidences understanding of medication use and regime: yes Patient belongings returned: Yes Patient left unit with: His sister At what time? 11:40 Prior to discharge, patient denied suicidal and homicidal ideation. Yamila Amanda - 03/17/2016 11:20 AM EDT Inpatient Daily Group Note Group: Goals Attendance: Present Behavior: Conversational Therapeutic Work Observed: Moderate Mood: Calm Notes: Reviewed BA module 4: Avoidance and Activation. Pt.'s goal: Discharging, Get to out patient appointment later today. YAMILA AMANDA 03/17/2016 Bess Pool MD - 03/17/2016 7:56 AM EDT Psychiatry Inpatient - Progress Note 03/17/2016 ID: Paxton Arguello is a 40 y.o. male admitted on 03/10/2016 for suicide attempt with seroquel. Hospitalday 7. Current Working Primary Diagnosis: BPAD vs PTSD Pertinent medical issues being addressed: None active Interval History Narrative: Patient states that he is feeling great, he adds that he can't wait about discharge. He states that he has several plans and is going to go get belongings today which he reports is not increasinghis anxiety. When team asks about move to his sister, he states that it is for the better. He is also planning to help brother in law with [employer], watch football games. He reports that his sister is locking up the meds and dispensing a few at a time to prevent overdosing. He states that if he sees warning signs for depression he would go for walks and reach out to sisters I will next time. He reports that he will be communicating better with his sisters. Sister Kayla also will be contacting him every other day, if that fails he will contact other friends. He wasreminded that he could use crisis line or go to the ED. He understands that he does not need to attempt suicide to get appropriate help or be admitted to a psychiatric unit. He states that he feels a little bit of anxiety... Normal. He denies SI/HI/VAH. Per nursing, slept well, about 8h. April, sister picking up patient at 11:30AM Review of Systems Denies nausea, vomiting, diarrhea, constipation, headache, coughs at times. Psych: See above Physical Exam Vitals (24hr Range): Temp: [36.8 ??C (98.2 ??F)] Resp: [17] Heart Rate: [87] BP: (134)/(92) SpO2: [97 %] Patient Vitals for the past 168 hrs: Weight 03/13/16 0758 (!) 109.3 kg (241 lb) 03/10/161999 (!) 112.9 kg (249 lb) Musculoskeletal System: normal gait and balance Neuro exam negative Mental Status Exam: Appearance: Age appropriate male; casually dressed; appropriately groomed Behavior: no psychomotor retardation or agitation; calm and cooperative; appropriate eye contact Speech: non-pressured; spontaneous; conversational rate and volume Language: fluent Pakistani; non-profane Mood: great Affect: improved, less restricted today Thought Process: organized, coherent, linear, goal-directed Associations: clear; intact; no ISIDORO Thought Content: denies SI, denies HI Perception: Not seen responding to internal stimuli, denies AVH Orientation: AAOx4 (person, place, time, and situation) Attention/Concentration: attends well to conversation Cognition: appropriate Memory: grossly intact Fund of Knowledge: age appropriate Insight: fair Judgment: fair Current medications: Scheduled: ??? lamoTRIgine 50 mg Oral Daily ??? buPROPion 300 mg Oral QAM ??? fluticasone-salmeterol 2 puff Inhalation BID ??? melatonin 9 mg Oral Nightly ??? rivaroxaban 15 mg Oral BID ??? traZODone 50 mg Oral Nightly ??? valACYclovir 1,000 mg Oral TID PRN: hydrOXYzine Labs: Last 24 Hours: No results found for this or any previous visit (from the past 24 hour(s)). Psychiatry Labs: Preg: No results found for: HCGQUAL, HCGQUANT Heme: No results found for: WBC, HGB, HCT, PLATELET, MCV, NEUTROABS No results found for: HA1C, SEDRATE Chem: No results found for: NA, K, CL, CO2, BUN, GLUCOSE, GLUCFASTING No results found for: CALCIUM, MAGNESIUM, PHOS LFTs: No results found for: ALT, AST, GGT, ALKPHOS, BILITOT, AMMONIA Coags: No results found for: PTT, PT, INR Thyroid: No results found for: TSH, [id number], TT4 Lipids and HgbA1C: Lab Results Component Value Date TRIG 327 (H) 02/20/2016 No results found for: HA1C Vit Lvls: No results found for: [id number], SFOLATE UA: No results found for: GLUCOSEU, KETONESUA, PROTEINUADIP, BLOODUADIP, LEUKOESTERUA, NITRATEUA, WBCUA (May not represent most recent UA results. See eD-H labs for more details.) Tox: No results found for: ETHANOL, ACTMNPHEN, SALICYLATE, LEAD No results found for: UDAUSCREEN Rx Lvls: No results found for: LITHIUM, CARBAMAZEPIN, VALPROATE, LAMOTRIGINE, CLOZAPINE Assessment: Paxton Arguello is a 40 y.o. male admitted on 03/10/2016 for overdose on seroquel. Patient demonstrates forward thinking and more thoughtful planning about warning signs of depression and harmful thoughts.At this point he denies SI/HI and is looking forward to moving with his sister April. Medication up-titration should be followed outpatient. Follow up plan in place and instructions given. Current Working Primary Diagnosis: MDD Plan: # MDD ?? Wellbutrin 300mg XL QAM ?? Encourage participation in milieu and groups # HSV encephalitis? ?? Finished acyclovir course # Substance use ?? TCA and opiate positive UDS but patient denying use: TCA likely false positive from due to Seroquel. # BPAD ?? Restarted Lamotrigine, titrate up as needed. ?? Determine need to change to a different mood stabilizer on an outpatient basis. # Rule out PE while on medicine ?? Xarelto 15mg BID until 10/6, then 20mg daily for at least 3 months and then to be reassessed per medicine # Disposition: - Patient expected to move with his sister April today. Follow up at [facility] in place. Signed By: Bess Pool MD 03/17/2016 Associated attestation - Dixie Tabares MD - 03/17/2016 9:13 PM EDT PSYCHIATRY TEACHING PHYSICIAN INVOLVEMENT Location: Inpatient Unit Attending Physician: Dixie Tabares MD I saw and evaluated the patient this morning. See the resident's note for details. I have independently performed the hill portions of the history and mental status exam. I reviewed the patient's history during the visit and I agree with the details as written with any exceptions mentioned in note below. My exam confirms the resident's findings with any exceptions mentioned in note below. The assessment and plan were formulated in discussion with me, and I agree with them as documented with any exceptions mentioned in note below. Major issues addressed/discussed: Patient seen this am. He reported feeling 'much better'. Denies passive or active suicidal thoughts/intent/plan emphatically. Patient denied hopelessness or significant anxiety. Patient denied panic symptoms/anhedonia/worthlessness. Denied access to firearms. he denied any concerns except as noted above. he identified positive coping strategies. he noted he will call 911/go to ED if experiencing suicidal thoughts/crisis in future. he plans to reach out to friends, family more. Team consulted with patient???s sisters who denied any acute safety concerns regarding patient at this time and feel comfortable with plan for discharge today. Sisters note marked improvement in patient???s mood, affect and functioning. We reviewed with sisters the need to remove any potentially danger ous objects from this patient's access, including guns, knives, prescription and over the counter medications, or ropes, to reduce the availability of potential lethal means of suicide. Utilized supportive psychotherapy techniques. Psychoeducation provided regarding clinical condition, treatment options, treatment recommendations and plan. Patient was future oriented. he expressed motivation for outpatient psychiatric follow up. he identified positive coping skills. he exhibited marked improvement in his anxiety, depressive symptoms and insight. Patient appears safe and appropriate for discharge to home today. Discharge instructions were reviewed with patient who expressed understanding and agreement. Team contacted his outpatient psychiatrist's clinic today and was mukesh to get an earlier follow up for early March. Follow up: PCP: ANEL WORTHY, STRATEGY INTERN [address] [facility] [address] [phone] October 6th at 3 pm with Marium Shetty We can help you find a [facility] primary care doctor, close to home. Call us at Psychiatry: Reji Whipple March 28 Therapy: Dimple Akhtar March 18 at 4 pm [facility] [address] [place] [address] F: [phone] If you move to the [facility], here are some resources: [facility] [address] [place] [address] F: [phone] Walk-In Clinic Hours Monday - 9-11 AM Julieth Delarosa MS - 03/16/2016 10:32 AM EDT Inpatient Daily Group Note Group: Goals; Reviewed BA, Mood Math, daily schedule, patients' progress and goals and read daily text. Attendance: Present Behavior: Relevant Therapeutic Work Observed: Moderate Mood: Calm Notes: Patient has goal to get ready for discharge. JULIETH DELAROSA MS 03/16/2016 Inpatient Daily Group Note Group: DBT: Reviewed the wave metaphor, mindfulness in regards to feelings and cardoza mind to help with regulation of emotions. Attendance: Present Behavior: Quiet Therapeutic Work Observed: Minimal Mood: Calm Notes: Patient listened quietly. JULIETH DELAROSA MS 03/16/2016 Inpatient Daily Group Note Group: Change Group Focus of discussion was on the process of change. Reviewed: how change is a process not an event, that you can???t measure progress by how you feel and that you first have to change your behaviors before your emotions catch up. Discussed how patterns of behavior develop and how challenging they are toovercome. Encouraged pts to be active in practicing coping strategies to challenge their current patterns of behavior. Attendance: Present Behavior: Quiet and Attentive Therapeutic Work Observed: Moderate Mood: Calm Notes: Pt was quiet though attentive. YAMILA TOBIN T 03/16/2016 Patient attended the following activities: ____Walk ____Workshop __x__Pet visit Additional pertinent information: Bess Pool MD - 03/16/2016 7:34 AM EDT Psychiatry Inpatient - Progress Note 03/16/2016 ID: Paxton Arguello is a 40 y.o. male admitted on 03/10/2016 for suicide attempt with seroquel. Hospitalday 6. Current Working Primary Diagnosis: BPAD vs PTSD Pertinent medical issues being addressed: None active Interval History Narrative: Patient states that he is feeling good. He reports that sister Kayla has been very supportive. Talked to his sister April and is going to live with her in [place] and she will be picking him up. He reports anxiety about leaving but adds that it's normal... Trying to make the transition. He reports that his sleep is good. Signs of worsening depression are anxiety increase, getting agitated quicker, mood flips. He reports that the mood swings happen even on the Lamictal. He denies SI/HI/VAH. Per nursing, continues to minimize suicide attempt. Slept 6.5h, slept okay. Denies depression. Review of Systems Denies nausea, vomiting, diarrhea, constipation, headache. Sharp pain when coughs in lower right chest that does not radiate and lasts a split second it is sharp in nature and happen about once a dayand only when he first coughs. Psych: See above Physical Exam Vitals (24hr Range): Temp: [36.8 ??C (98.2 ??F)] Resp: [17] Heart Rate: [87] BP: (134)/(92) SpO2: [97 %] Patient Vitals for the past 168 hrs: Weight 03/13/16 0758 (!) 109.3 kg (241 lb) 03/10/161999 (!) 112.9 kg (249 lb) Musculoskeletal System: normal gait and balance Neuro exam negative Pulm: clear to auscultation bilaterally, no consolidation noted on percussion. Mental Status Exam: Appearance: Age appropriate male; casually dressed; appropriately groomed Behavior: no psychomotor retardation or agitation; calm and cooperative; appropriate eye contact Speech: non-pressured; spontaneous; conversational rate and volume Language: fluent Pakistani; non-profane Mood: okay Affect: restricted but improving Thought Process: organized, coherent, linear, goal-directed Associations: clear; intact; no ISIDORO Thought Content: denies SI, denies HI Perception: Not seen responding to internal stimuli, denies AVH Orientation: AAOx4 (person, place, time, and situation) Attention/Concentration: attends well to conversation Cognition: appropriate Memory: grossly intact Fund of Knowledge: age appropriate Insight: limited Judgment: limited Current medications: Scheduled: ??? lamoTRIgine 50 mg Oral Daily ??? buPROPion 300 mg Oral QAM ??? fluticasone-salmeterol 2 puff Inhalation BID ??? melatonin 9 mg Oral Nightly ??? rivaroxaban 15 mg Oral BID ??? traZODone 50 mg Oral Nightly ??? valACYclovir 1,000 mg Oral TID PRN: hydrOXYzine Labs: Last 24 Hours: No results found for this or any previous visit (from the past 24 hour(s)). Psychiatry Labs: Preg: No results found for: HCGQUAL, HCGQUANT Heme: No results found for: WBC, HGB, HCT, PLATELET, MCV, NEUTROABS No results found for: HA1C, SEDRATE Chem: No results found for: NA, K, CL, CO2, BUN, GLUCOSE, GLUCFASTING No results found for: CALCIUM, MAGNESIUM, PHOS LFTs: No results found for: ALT, AST, GGT, ALKPHOS, BILITOT, AMMONIA Coags: No results found for: PTT, PT, INR Thyroid: No results found for: TSH, Q0IBKCD, TT4 Lipids and HgbA1C: Lab Results Component Value Date TRIG 327 (H) 02/20/2016 No results found for: HA1C Vit Lvls: No results found for: [id number], SFOLATE UA: No results found for: GLUCOSEU, KETONESUA, PROTEINUADIP, BLOODUADIP, LEUKOESTERUA, NITRATEUA, WBCUA (May not represent most recent UA results. See eD-H labs for more details.) Tox: No results found for: ETHANOL, ACTMNPHEN, SALICYLATE, LEAD No results found for: UDAUSCREEN Rx Lvls: No results found for: LITHIUM, CARBAMAZEPIN, VALPROATE, LAMOTRIGINE, CLOZAPINE Assessment: Paxton Arguello is a 40 y.o. male admitted on 03/10/2016 for overdose on seroquel. At this point patientis starting to divulge more information about his suicide attempt and the context of worsening depression for 2-4 months. He is to move in with his sister April, into a more stable environment. He denies any SI/HI. Patient was advised that pain while coughing is likely to be residual from PE's and that they should resolve with time. Team recommends follow up with outpatient provider. Attempted to call outpatient psychiatrist without success, left voicemail with call back number. Current Working Primary Diagnosis: MDD Plan: # MDD ?? Wellbutrin 300mg XL QAM ?? Encourage participation in milieu and groups ?? Contact Dr. Reji Whipple to determine if follow up with him or if patient should transfer care # HSV encephalitis? ?? Finished acyclovir course # Substance use ?? TCA and opiate positive UDS but patient denying use: TCA likely false positive from due to Seroquel. # BPAD ?? Re-evaluate symptoms ?? Determine need to change to a different mood stabilizer on an outpatient basis. # Rule out PE while on medicine ?? Xarelto 15mg BID until 6, then 20mg daily for at least 3 months and then to be reassessed per medicine # Disposition: - After stabilization, patient expected to move with his sister April. Possible substance use follow up. Reasons for continued hospitalization: Warrants ongoing inpatient admission for safety, stabilization, and any other therapeutic intervention that could conceivably improve the patient's condition (including medication management, group psychotherapy, establishing adequate outpatient care). Patient Instruction/Education Provided: Patient provided verbal instructions during rounds regardingthe treatment plan. I have reviewed and agree with the multidisciplinary treatment plan. I certify that the patient requires [x] inpatient care for psychiatric treatment that could reasonably be expected to improve the patient's condition and/or diagnostic study. Signed By: Bess Pool MD 03/16/2016 Associated attestation - Dixie Tabares MD - 03/16/2016 4:23 PM EDT PSYCHIATRY TEACHING PHYSICIAN INVOLVEMENT ?? Location: Inpatient Unit ?? Attending Physician: Dixie Tabares MD ?? I saw and evaluated the patient this morning. See the resident's note for details. I have independently performed the hill portions of the history and mental status exam. ? I reviewed the patient's history during the visit and I agree with the details as written with any exceptions mentioned in note below. ?? My exam confirms the resident's findings with any exceptions mentioned in note below. ?? The assessment and plan were formulated in discussion with me, and I agree with them as documented with any exceptions mentioned in note below. ?? Major issues addressed/discussed: ? Patient seen this am. He was better engaged today and denied depressive symptoms today. He noted sleeping better. He noted 'a little anxiety' related to discharge, but, feels ready for discharge tomorrow. He denied any passive/active suicidal thoughts/intent/plan today. He noted sisters being supportive. ?? Therapeutic milieu. Optimize medication regimen as appropriate. ?? Utilized supportive, DBT psychotherapy techniques. Psychoeducation provided regarding clinical condition, treatment options, treatment recommendations and plan. psychoeducation provided again today regarding potential medical (including life threatening), social, legal, occupational, interpersonal consequences of alcohol and illicit substance use, and encouraged abstinence. Patient expressed understanding, agreement. Team physician attempted to contact his outpatient psychiatrist, Dr. Whipple today to schedule earlier follow up appointment and to provide his clinical update for post discharge coordination of care. Unable to reach him at this time, left a voice message to call back. ? I certify that the patient requires: ?? [x] inpatient care for psychiatric treatment that could reasonably be expected to improve the patient's condition and or diagnostic study. ?? Dixie Tabares MD - 03/15/2016 8:56 PM EDT Psychiatry Inpatient - Progress Note 03/15/2016 ID: Paxton Arguello is a 40 y.o. male admitted on 03/10/2016 for suicide attempt with seroquel. Hospitalday 5. Current Working Primary Diagnosis: BPAD vs PTSD Pertinent medical issues being addressed: None active Interval History Narrative: Patient states He says he is glad to be here it as it has 'helped get help now'. ?? Stated sister came to visit yesterday and they both came up with a plan. Stated she plans 'to check in' with him. He plans to stay with his other sister after discharge. Sister is trying to organize a visit with his sons for him, per patient. He noted he is 'Trying to let go and not stay focused on negative thoughts about past'. Stated he does a 'couple of deep breaths' and that helps. He reported heplans to 'be more cautious about things'. Denied hopelessness/passive/active suicidal thoughts. Denied worthlessness/excessive worrying. Stated he talks 'about everything in therapy with Dimple'. He wants to continue taking bupropion. He declined IOP for substance use which was recommended by team. He plans to 'notice the signs before it got to that point'. Review of Systems Denies nausea, vomiting, diarrhea, constipation, CP, SOB, headache Psych: See above Physical Exam Vitals (24hr Range): Temp: [36.8 ??C (98.2 ??F)] Resp: -- Heart Rate: -- BP: (131)/(90) SpO2: [98 %] Patient Vitals for the past 168 hrs: Weight 03/13/16 0758 (!) 109.3 kg (241 lb) 03/10/161999 (!) 112.9 kg (249 lb) Musculoskeletal System: normal gait and balance Neuro exam negative Mental Status Exam: Appearance: Age appropriate male; casually dressed, fairly groomed Behavior: no psychomotor retardation or agitation; calm, pleasant and cooperative; appropriate eye contact Speech: non-pressured; spontaneous; conversational rate and volume Language: fluent Pakistani; non-profane Mood: better Affect: restricted , but, improving range Thought Process: linear, goal-directed, no FOI Associations: intact; no ISIDORO Thought Content: denies SI, denies HI, no delusions/paranoia noted Perception: Not seen responding to internal stimuli, denies AVH Orientation: AAOx4 (person, place, time, and situation) Attention/Concentration: attends well to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 Memory: Grossly intact Fund of Knowledge: Appropriate for age Insight: Limited Judgement: Limited Pertinent Labs/Studies: No results found for this or any previous visit (from the past 24 hour(s)). Most Recent Metabolic Labs: No results found for: TSH No results found for: HA1C Lab Results Component Value Date TRIG 327 (H) 02/20/2016 Assessment: Paxton Arguello is a 40 y.o. male with PPHx of depression, PTSD, MADALYN, BPAD who presents to [facility] after being found unconscious on the side of the street. Utox on admission is positive for opiates and TCAs,and in combination with seroquel may have lead to his unconsciousness/aspiration pneumonia. Considering his questionable ability for cognitive processing, MOCA was completed and scored 27/30. There is some visible cognitive decline while conducting the MOCA but unclear whether that was present prior to this hospitalization. Highest education level is high school graduate. It would be beneficial to obtain collateral information from outpatient providers (Dr. Reji Whipple and Dimple Akhtar) and identify which medications he was taking prior to this admission. Patient denies suicidality, homicidality and psychosis. Safety Risk Assessment: Patient warrants inpatient admission for safety, stabilization, and any other therapeutic intervention that could conceivably improve the patient's condition (including medication management, group psychotherapy, establishing adequate outpatient care). DSM V Diagnosis: Suicide attempt Clinical Global Impression: Severity of illness: Considering your total clinical experience with this particular population, howmentally ill is the patient at this time? 5 = Markedly ill Immediate Treatment Plan: ?? Admit patient to psychiatry unit for safety, stabilization, and medication management. ?? Restrict to Unit (RTU) activity level on admission. ?? Discussed Advanced Directives and Code Status. The patient wishes to be Full Code. ?? Diet: Regular ?? Check standard admission labs: CBC, BMP, TSH, UA, Urine Drug Screen ?? Primary team will contact outpatient prescriber and therapist for collateral information and continuity of care. ?? Medications: continue buproprion 300mg, trazodone 50mg; defer to day team for medication management ?? Contact outpatient team for collateral and clarify cognitive status prior to admission as well asmedications ?? Utox on admission positive for TCAs and opiates - clarify: where did he get them? ?? MOCA Preventative/Prophylaxis: ?? Pneumovax and Influenza immunizations to be given as needed. ?? DVT prophylaxis not indicated: patient is at low risk for VTE and is fully ambulatory. ?? If currently a smoker: advised about smoking cessation, will provide cessation material and support. Disposition: ?? I certify that the patient requires inpatient care for psychiatric treatment that could reasonably be expected to improve the patient's condition and/or diagnostic study. ?? Estimated length of time needed for hospital staff is 5-8 days. ?? Proposed post-discharge care will likely include re-establishing follow-up care with existing providers. Euefmia Herndon MD 03/10/2016 PSYCHIATRY TEACHING PHYSICIAN INVOLVEMENT Location: Inpatient Unit Attending Physician: Dixie Tabares MD I saw and evaluated the patient this morning within 24 hrs of admission. See the resident's note fordetails. I have independently performed the hill portions of the history and mental status exam. I reviewed the patient's history during the visit and I agree with the details as written with any exceptions mentioned in note below. My exam confirms the resident's findings with any exceptions mentioned in note below. The assessment and plan were formulated in discussion with me, and I agree with them as documented with any exceptions mentioned in note below. Major issues addressed/discussed: Patient seen this am. Patient noted he has 'no clue' about the events leading to this hospitalziation. He noted he last recalls 'walking with a cup of coffee' and the next thing he 'found self in the hospital'. He denied passive/active suicidal or homicidal ideation, and is future oriented. He denied a uditory/visual hallucinations/paranoia. He is alert and oriented x4. Therapeutic milieu. Optimize medication regimen as appropriate. Utilized supportive psychotherapy techniques. Psychoeducation provided regarding clinical condition, treatment options, treatment recommendations and plan. Obtain further collateral info. I certify that the patient requires: [x] inpatient care for psychiatric treatment that could reasonably be expected to improve the patient's condition and or diagnostic study. documented in this encounter Miscellaneous Notes Plan of Care - Soraya Tobias RN - 03/17/2016 9:32 AM EDT Problem: General Plan of Care Goal: Plan of Care Review Outcome: Outcome (s) achieved Date Met: 03/17/16 03/17/16925 Coping/Psychosocial Response Interventions Plan of Care Reviewed with patient Plan of Care Review Plan of Care Outcome Status outcome achieved OUTCOME EVALUATION NOTE: OUTCOME SUMMARY: Pt reported slept good. Depression: 0/10 Anxiety: 2/10 around discharge (10=worst). Affect is blunted and congruent. Eye contact good. Pt denies AH/VH. No other psychotic symptoms reported or observed. Pt denies suicidal or homicidal ideation. Pt denies thoughts of self harm. Pt willing to contact staff if having thoughts of hurting self or anyone else rather than acting on such thoughts. Independent ADLs; fair grooming. Pt has been pleasant and cooperative and social with peers. Pt's appetite is good and reports last bowel movement was yesterday. Pt denies physical pain. Pt adhering toprescribed medication plan. PLAN MOVING FORWARD: Plan is for discharge today. Patient is in agreement with this plan. Pt completed his Wellness Recovery and Safety Plan. INDIVIDUALIZED FALL PREVENTION INTERVENTIONS: Patient-specific fall risk factors per assessment [current deficits]: Secondary Diagnosis Assistance [level of assistance required for transfers and ambulation]: None Supervision [direct monitoring required during toileting and ADLs]: n/a Surveillance [continuous indirect monitoring]: 30 minute checks and purposeful rounds Patient-specific fall prevention interventions for sensory deficits provided if applicable: N/A CPG GOAL OUTCOME EVALUATION: Goal: Fall Prevention-Safe Patient Handling Outcome: Outcome (s) achieved Date Met: 03/17/16 03/15/16 1855 03/17/16 0903/17/16925 Safety Interventions Safety Precautions/Fall Reduction -- -- nonskid shoes/slippers when out of bed;lighting adjusted fortask/safety;environmental modification;fall reduction program maintained Musculoskeletal Interventions Activity/Level of Assistance -- -- up ad reina;independently Positioning independent -- -- Muscle Strengthening -- -- activity/mobility promoted Self-Care Promotion -- -- personal routines for BADL/IADL promoted Activity and Safety Assistive Device -- -- None Carpenter Fall Risk History of Falling -- 0 -- Secondary Diagnosis -- 15 -- Ambulatory Aids -- 0 -- Intravenous Therapy/Heparin/Saline Lock -- 0 -- Gait/Transferring -- 0 -- Mental Status -- 0 -- Score -- 15 -- OTHER Carpenter Fall Risk -- Low -- Goal: Infection Control Outcome: Outcome (s) achieved Date Met: 03/17/16 03/17/16925 Coping/Psychosocial Response Interventions Counseling emotional support provided;understanding of situation facilitated Safety Interventions Isolation Precautions standard precautions maintained Infection Prevention hydration promoted;nutrition promoted;promote handwashing;rest/sleep promoted;environmental surveillance Goal: Discharge Needs Assessment Outcome: Outcome (s) achieved Date Met: 03/17/16 03/10/16215303/14/161911 Discharge Needs Assessment Concerns to be Addressed -- cognitive/perceptual concerns;coping/stress concerns;mental health concerns Readmission Within the Last 30 Days -- no previous admission in last 30 days Equipment Needed After Discharge CPAP -- Current Discharge Risk cognitively impaired;psychiatric illness -- Current Health Anticipated Changes Related to Illness -- none Self-Care Equipment Currently Used at Home -- CPAP Living Environment Transportation Available -- family or friend will provide;car Problem: Coping, Compromised Individual (Adult, Obstetrics, Pediatric) Goal: Effective Coping Patient will demonstrate the desired outcomes. Outcome: Outcome (s) achieved Date Met: 03/17/16 03/17/16925 Coping, Compromised Individual (Adult, Obstetrics, Pediatric) Effective Coping achieves outcome Plan of Care - Gisell Rivas RN - 03/16/2016 6:07 PM EDT Problem: General Plan of Care Goal: Plan of Care Review 03/16/16 180 Coping/Psychosocial Response Interventions Plan of Care Reviewed with patient Plan of Care Review Plan of Care Outcome Status ongoing (interventions implemented as appropriate) Progress improving OUTCOME EVALUATION NOTE: OUTCOME SUMMARY: Patient on phone with sister Smith for a very long time, approx 1.5 hours, stating he couldn't get her off the phone. Patients sister visited, dropped off house keys, in contrband. Patient denies si/hi and a/v/h, denies pain. Patient eating well, visible in the back lounge with peers. Patient stated he completed paperwork, in chart. Patient stated overdosed as a wake up call to his family, since patient is upset his sisters lost touch with him. Patient did state he now has a larger network of support systems after this admission. PLAN MOVING FORWARD: INDIVIDUALIZED FALL PREVENTION INTERVENTIONS: Patient-specific fall risk factors per assessment: [current deficits]: See doc flow Assistance [level of assistance required for transfers and ambulation]: independ Supervision [direct monitoring required during toileting and ADLs]: independ Surveillance [continuous indirect monitoring]: q 30 minute checks Patient-specific fall prevention interventions for sensory deficits provided, if applicable: NA CPG GOAL OUTCOME EVALUATION: Goal: Fall Prevention-Safe Patient Handling 03/15/16185403/16/16 1700 Safety Interventions Safety Precautions/Fall Reduction -- fall reduction program maintained Musculoskeletal Interventions Activity/Level of Assistance up ad reina;independently -- Positioning independent -- Muscle Strengthening activity/mobility promoted -- Self-Care Promotion personal routines for BADL/IADL promoted -- Activity and Safety Assistive Device None -- Carpenter Fall Risk History of Falling -- 0 Secondary Diagnosis -- 15 Ambulatory Aids -- 0 Intravenous Therapy/Heparin/Saline Lock -- 0 Gait/Transferring -- 0 Mental Status -- 0 Score -- 15 OTHER Carpenter Fall Risk -- Low Goal: Infection Control 03/15/16185403/16/16 0200 Coping/Psychosocial Response Interventions Counseling emotional support provided;understanding of situation facilitated -- Safety Interventions Isolation Precautions -- standard precautions maintained Infection Prevention -- rest/sleep promoted Goal: Discharge Needs Assessment 03/10/16215303/14/161911 Discharge Needs Assessment Concerns to be Addressed -- cognitive/perceptual concerns;coping/stress concerns;mental health concerns Readmission Within the Last 30 Days -- no previous admission in last 30 days Equipment Needed After Discharge CPAP -- Current Discharge Risk cognitively impaired;psychiatric illness -- Current Health Anticipated Changes Related to Illness -- none Self-Care Equipment Currently Used at Home -- CPAP Living Environment Transportation Available -- family or friend will provide;car Problem: Coping, Compromised Individual (Adult, Obstetrics, Pediatric) Goal: Effective Coping Patient will demonstrate the desired outcomes. 03/16/161805 Coping, Compromised Individual (Adult, Obstetrics, Pediatric) Effective Coping making progress toward outcome Plan of Care - Lucille Hawk RN - 03/16/2016 1:58 PM EDT Problem: General Plan of Care Goal: Plan of Care Review Outcome: Ongoing (Interventions Implemented as Appropriate) 03/15/161854 Coping/Psychosocial Response Interventions Plan of Care Reviewed with patient Plan of Care Review Plan of Care Outcome Status ongoing (interventions implemented as appropriate) Progress improving OUTCOME EVALUATION NOTE: OUTCOME SUMMARY: Pt has no real change from yesterday. He is up and dressed early, stating he slept well. He continues to deny SI/HI and will let us know if that changes. He denies depression and ratesanxiety as / R/T D/C tomorrow. RPP copied. He is eating well. Last BM last night. He has some pain when coughing which MD states can be from PE. Compliant with all meds. INDIVIDUALIZED FALL PREVENTION: Assistance: Up ad Reina Supervision: ETG Surveillance: 30 checks Goal: Fall Prevention-Safe Patient Handling Outcome: Ongoing (Interventions Implemented as Appropriate) 03/15/16185403/16/16 0913 Safety Interventions Safety Precautions/Fall Reduction -- fall reduction program maintained Musculoskeletal Interventions Activity/Level of Assistance up ad reina;independently -- Positioning independent -- Muscle Strengthening activity/mobility promoted -- Self-Care Promotion personal routines for BADL/IADL promoted -- Activity and Safety Assistive Device None -- Carpenter Fall Risk History of Falling -- 0 Secondary Diagnosis -- 15 Ambulatory Aids -- 0 Intravenous Therapy/Heparin/Saline Lock -- 0 Gait/Transferring -- 0 Mental Status -- 0 Score -- 15 OTHER Carpenter Fall Risk -- Low Goal: Infection Control Outcome: Ongoing (Interventions Implemented as Appropriate) 03/15/16185403/16/16 0200 Coping/Psychosocial Response Interventions Counseling emotional support provided;understanding of situation facilitated -- Safety Interventions Isolation Precautions -- standard precautions maintained Infection Prevention -- rest/sleep promoted Goal: Discharge Needs Assessment Outcome: Ongoing (Interventions Implemented as Appropriate) 03/10/16215303/14/16 191 Discharge Needs Assessment Concerns to be Addressed -- cognitive/perceptual concerns;coping/stress concerns;mental health concerns Readmission Within the Last 30 Days -- no previous admission in last 30 days Equipment Needed After Discharge CPAP -- Current Discharge Risk cognitively impaired;psychiatric illness -- Current Health Anticipated Changes Related to Illness -- none Self-Care Equipment Currently Used at Home -- CPAP Living Environment Transportation Available -- family or friend will provide;car Problem: Coping, Compromised Individual (Adult, Obstetrics, Pediatric) Goal: Effective Coping Patient will demonstrate the desired outcomes. Outcome: Ongoing (Interventions Implemented as Appropriate) 03/15/161854 Coping, Compromised Individual (Adult, Obstetrics, Pediatric) Effective Coping making progress toward outcome Plan of Care - Soraya Tobias RN - 03/15/2016 8:10 PM EDT Problem: General Plan of Care Goal: Plan of Care Review Outcome: Ongoing (Interventions Implemented as Appropriate) 03/15/161854 Coping/Psychosocial Response Interventions Plan of Care Reviewed with patient Plan of Care Review Plan of Care Outcome Status ongoing (interventions implemented as appropriate) Progress improving OUTCOME EVALUATION NOTE: OUTCOME SUMMARY: Pt reported slept well last night. Depression: 0/10 Anxiety: 0/10 (10=worst; denies both) Affect is Full and congruent. Eye contact good. Pt denies AH/VH. No other psychotic symptoms reported or observed. Pt denies suicidal or homicidal ideation. Pt denies thoughts of self harm. Pt willing to contact staff if having thoughts of hurting self or anyone else rather than acting on such thoughts. Independent ADLs; fair grooming. Pt has been pleasant and cooperative and social with peers. Pt's appetite is good and reports last bowel movement was today. Pt denies physical pain. Pt adhering to prescribed medication plan. PLAN MOVING FORWARD: Continue medications. Encourage BARRETT program, therapeutic groups and therapeutic milieu. INDIVIDUALIZED FALL PREVENTION INTERVENTIONS: Patient-specific fall risk factors per assessment [current deficits]: Secondary Diagnosis Assistance [level of assistance required for transfers and ambulation]: None Supervision [direct monitoring required during toileting and ADLs]: n/a Surveillance [continuous indirect monitoring]: 30 minute checks and purposeful rounds Patient-specific fall prevention interventions for sensory deficits provided if applicable: N/A CPG GOAL OUTCOME EVALUATION: Goal: Fall Prevention-Safe Patient Handling Outcome: Ongoing (Interventions Implemented as Appropriate) 03/15/16 1800 03/15/16 185 Safety Interventions Safety Precautions/Fall Reduction -- fall reduction program maintained Musculoskeletal Interventions Activity/Level of Assistance -- up ad reina;independently Positioning -- independent Muscle Strengthening -- activity/mobility promoted Self-Care Promotion -- personal routines for BADL/IADL promoted Activity and Safety Assistive Device -- None Carpenter Fall Risk History of Falling 0 -- Secondary Diagnosis 15 -- Ambulatory Aids 0 -- Intravenous Therapy/Heparin/Saline Lock 0 -- Gait/Transferring 0 -- Mental Status 0 -- Score 15 -- OTHER Carpenter Fall Risk Low -- Goal: Infection Control Outcome: Ongoing (Interventions Implemented as Appropriate) 03/15/161854 Coping/Psychosocial Response Interventions Counseling emotional support provided;understanding of situation facilitated Safety Interventions Isolation Precautions standard precautions maintained Infection Prevention hydration promoted;nutrition promoted;promote handwashing;rest/sleep promoted Goal: Discharge Needs Assessment Outcome: Ongoing (Interventions Implemented as Appropriate) 03/10/16215303/14/16 191 Discharge Needs Assessment Concerns to be Addressed -- cognitive/perceptual concerns;coping/stress concerns;mental health concerns Readmission Within the Last 30 Days -- no previous admission in last 30 days Equipment Needed After Discharge CPAP -- Current Discharge Risk cognitively impaired;psychiatric illness -- Current Health Anticipated Changes Related to Illness -- none Self-Care Equipment Currently Used at Home -- CPAP Living Environment Transportation Available -- family or friend will provide;car Problem: Coping, Compromised Individual (Adult, Obstetrics, Pediatric) Goal: Effective Coping Patient will demonstrate the desired outcomes. Outcome: Ongoing (Interventions Implemented as Appropriate) 03/15/161854 Coping, Compromised Individual (Adult, Obstetrics, Pediatric) Effective Coping making progress toward outcome Plan of Care - Lucille Hawk RN - 03/15/2016 1:48 PM EDT Problem: General Plan of Care Goal: Plan of Care Review Outcome: Ongoing (Interventions Implemented as Appropriate) 03/14/162140 Coping/Psychosocial Response Interventions Plan of Care Reviewed with patient Plan of Care Review Plan of Care Outcome Status ongoing (interventions implemented as appropriate) Progress improving OUTCOME EVALUATION NOTE: OUTCOME SUMMARY: Pt has been awake and attending all groups. Social with others. A bit irritated he could not leave Monday as he thought. He completed RPP. He denies SI/HI and will let us know if that changes. Anxiety is 2/10 R/T d/c issues. He is eating and drinking well. INDIVIDUALIZED FALL PREVENTION: Assistance: Up ad Reina Supervision: ETG Surveillance: 30 checks Goal: Fall Prevention-Safe Patient Handling Outcome: Ongoing (Interventions Implemented as Appropriate) 03/14/16214003/15/16899 Safety Interventions Safety Precautions/Fall Reduction -- fall reduction program maintained Musculoskeletal Interventions Activity/Level of Assistance up ad reina -- Positioning independent -- Muscle Strengthening activity/mobility promoted -- Self-Care Promotion personal routines for BADL/IADL promoted -- Activity and Safety Assistive Device None -- Carpenter Fall Risk History of Falling -- 0 Secondary Diagnosis -- 15 Ambulatory Aids -- 0 Intravenous Therapy/Heparin/Saline Lock -- 0 Gait/Transferring -- 0 Mental Status -- 0 Score -- 15 OTHER Carpenter Fall Risk -- Low Goal: Infection Control Outcome: Ongoing (Interventions Implemented as Appropriate) 03/14/16214003/15/16899 Coping/Psychosocial Response Interventions Counseling emotional support provided -- Safety Interventions Isolation Precautions -- standard precautions maintained Infection Prevention -- environmental surveillance;hydration promoted;nutrition promoted;promote handwashing;rest/sleep promoted Goal: Discharge Needs Assessment Outcome: Ongoing (Interventions Implemented as Appropriate) 03/10/16215303/14/16 1912 Discharge Needs Assessment Concerns to be Addressed -- cognitive/perceptual concerns;coping/stress concerns;mental health concerns Readmission Within the Last 30 Days -- no previous admission in last 30 days Equipment Needed After Discharge CPAP -- Current Discharge Risk cognitively impaired;psychiatric illness -- Current Health Anticipated Changes Related to Illness -- none Self-Care Equipment Currently Used at Home -- CPAP Living Environment Transportation Available -- family or friend will provide;car Problem: Coping, Compromised Individual (Adult, Obstetrics, Pediatric) Goal: Effective Coping Patient will demonstrate the desired outcomes. 03/14/162140 Coping, Compromised Individual (Adult, Obstetrics, Pediatric) Effective Coping making progress toward outcome Med Student Progress Note - Mark Mays - 03/15/2016 12:42 PM EDT Medical Student Progress Note - Short Mr. Arguello is doing well today. He had a good evening last night when he got visited by his sister Kayla. He denied any SI or HI. Denied having feelings of worthlessness, hopelessness or guilt. He slept ok last night, about 7.5 hours. He clarified that he was taking 250 mg of lamotrigine and he stated that he would like to restart this medication since the last time he took it was the morning of his suicide attempt. He stated that the lamotrigine plus the bupropion were working well for him and denied having any side effects. Mr. Arguello reiterated that the longer he is hospitalized the longer he has to think about his past traumatic events. He stated that he is trying to use some of the learned coping mechanisms when he gets these thoughts, such as deep breathing for a few minutes and acknowledging that they exist and letting them go. He mentioned having a little anxiety today, mainly around the idea of leaving the hospital soon. He has completed portions of the wellness plan in the recovery [facility]. He clarified that he would be staying with his sister April and not Kayla as previously discussed. He mentioned that he still has not clarified this with April but would attempt to communicate with her this afternoon. He is looking forward to seeing his sons, who may be able to come by the hospital to see him today. He mentioned having an appointment with his therapist on at 4:00, and if possible would like to get discharged with ample time to get to it since [place] away from [facility]. Since he plans to move to the area, the transition of services was discussed with him and he seemed agreeable to the idea. Overall, Mr. Arguello feels like he no longer is lacking a support system, and realized that he has more friends than he thought he did. He stated that his siblings and children are being supportive of him. He mentioned having a plan to check in with one sister on a daily basis while living with a different sister. As far as other methods to prevent a repeat suicide attempt, Mr. Arguello stated that he willtry different things when those emotions/situations come up, such as working with his hands on a project, coloring, and reaching out to other people. He gave the team permission to contact his therapist. An attempt was made to contact his therapist but she was scheduled to be with patients until late this afternoon. Plan of Care - Lady Long RN - 03/14/2016 7:23 PM EDT Problem: General Plan of Care Goal: Plan of Care Review Outcome: Ongoing (Interventions Implemented as Appropriate) 03/14/16 191 Coping/Psychosocial Response Interventions Plan of Care Reviewed with patient Plan of Care Review Plan of Care Outcome Status ongoing (interventions implemented as appropriate) Progress improving OUTCOME EVALUATION NOTE: OUTCOME SUMMARY: Pt has been social, out in milieu. He denies pain. He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 and Related Risk Factors Signs and symptoms and related risk factors are identified upon initiation of Human Response Clinical Practice Guideline (CPG) Outcome: Outcome (s) achieved Date Met: 03/12/16 03/10/162150 Coping, Compromised Individual Personal Related Risk Factors (Coping, Compromised Individual) multiple stressors;problem solving pattern Environmental Related Risk Factors (Coping, Compromised Individual) prolonged hospitalization;relocation Physiological Related Risk Factors (Coping, Compromised Individual) change in mental processing;diminished cognitive function;health status change;mental illness;physical stressors Treatment Related Related Risk Factors (Coping, Compromised Individual) medication Signs and Symptoms (Coping, Compromised Individual) avoidance behaviors;change in eating habits;decision-making/problem-solving deficit;inability to identify or use social supports;inappropriate copingmechanisms;sleep disturbance;social withdrawal Goal: Effective Coping Patient will demonstrate the desired outcomes. Outcome: Ongoing (Interventions Implemented as Appropriate) 03/12/16 0939 Coping, Compromised Individual (Adult, Obstetrics, Pediatric) Effective Coping making progress toward outcome Plan of Care - Lucille Hawk RN - 03/11/2016 10:16 PM EDT Problem: General Plan of Care Goal: Individualization and Mutuality Outcome: Ongoing (Interventions Implemented as Appropriate) 03/10/16 193 Mutuality/Individual Preferences What anxieties, fears or concerns do you have about your health or care? no What questions do you have about your health or care? no What information would help us give you more personalized care? no OUTCOME EVALUATION NOTE: OUTCOME SUMMARY: Pt has been pleasant and quiet. He visited with his sister Kay about 3 hours whichhe said he enjoyed. Pt able to have a 30 minute pass with her per DOC. He denies SI/HI and says he would let us know if that changes. He denies any depression or anxiety. I ate just about all my dinner for the first time since I've been here. Last BM today. He attended all available groups. He denies pain or other concerns. Compliant with all his meds. INDIVIDUALIZED FALL PREVENTION: Assistance: Up ad Reina Supervision: ETG Surveillance: 30 checks Goal: Fall Prevention-Safe Patient Handling Outcome: Ongoing (Interventions Implemented as Appropriate) 03/10/16215303/11/16 1800 Safety Interventions Safety Precautions/Fall Reduction -- fall reduction program maintained Musculoskeletal Interventions Activity/Level of Assistance up ad reina -- Carpenter Fall Risk History of Falling -- 0 Secondary Diagnosis -- 15 Ambulatory Aids -- 0 Intravenous Therapy/Heparin/Saline Lock -- 0 Gait/Transferring -- 0 Mental Status -- 0 Score -- 15 OTHER Carpenter Fall Risk -- Low Goal: Infection Control Outcome: Ongoing (Interventions Implemented as Appropriate) 03/10/16215303/11/16 1800 Coping/Psychosocial Response Interventions Counseling calming techniques promoted;emotional support provided;reassurance provided;verbalizationof feelings encouraged -- Safety Interventions Isolation Precautions -- standard precautions maintained Infection Prevention -- environmental surveillance;hydration promoted;nutrition promoted;promote handwashing;rest/sleep promoted Goal: Discharge Needs Assessment Outcome: Ongoing (Interventions Implemented as Appropriate) 03/10/16193003/10/162153 Discharge Needs Assessment Concerns to be Addressed -- adjustment to diagnosis/illness concerns;basic needs concerns;care coordination/care conferences;cognitive/perceptual concerns;compliance issue concerns;coping/stress concerns;decision making concerns;discharge planning concerns;home safety concerns;medication concerns;mental health concerns Readmission Within the Last 30 Days -- no previous admission in last 30 days Equipment Needed After Discharge -- CPAP Current Discharge Risk -- cognitively impaired;psychiatric illness Living Environment Transportation Available car -- Problem: Coping, Compromised Individual (Adult, Obstetrics, Pediatric) Goal: Identify Signs and Symptoms and Related Risk Factors Signs and symptoms and related risk factors are identified upon initiation of Human Response Clinical Practice Guideline (CPG) Outcome: Ongoing (Interventions Implemented as Appropriate) 03/10/162150 Coping, Compromised Individual Personal Related Risk Factors (Coping, Compromised Individual) multiple stressors;problem solving pattern Environmental Related Risk Factors (Coping, Compromised Individual) prolonged hospitalization;relocation Physiological Related Risk Factors (Coping, Compromised Individual) change in mental processing;diminished cognitive function;health status change;mental illness;physical stressors Treatment Related Related Risk Factors (Coping, Compromised Individual) medication Signs and Symptoms (Coping, Compromised Individual) avoidance behaviors;change in eating habits;decision-making/problem-solving deficit;inability to identify or use social supports;inappropriate copingmechanisms;sleep disturbance;social withdrawal Goal: Effective Coping Patient will demonstrate the desired outcomes. Outcome: Ongoing (Interventions Implemented as Appropriate) 03/11/16 1051 Coping, Compromised Individual (Adult, Obstetrics, Pediatric) Effective Coping making progress toward outcome Plan of Care - Mica De Jesus RN - 03/11/2016 11:14 AM EDT Problem: General Plan of Care Goal: Individualization and Mutuality Outcome: Ongoing (Interventions Implemented as Appropriate) 03/10/16 1931 Mutuality/Individual Preferences What anxieties, fears or concerns do you have about your health or care? no What questions do you have about your health or care? no What information would help us give you more personalized care? no Goal: Fall Prevention-Safe Patient Handling Outcome: Ongoing (Interventions Implemented as Appropriate) 03/10/16 2154 03/11/16 1000 Safety Interventions Safety Precautions/Fall Reduction -- fall reduction program maintained Musculoskeletal Interventions Activity/Level of Assistance up ad reina -- Carpenter Fall Risk History of Falling -- 0 Secondary Diagnosis -- 15 Ambulatory Aids -- 0 Intravenous Therapy/Heparin/Saline Lock -- 0 Gait/Transferring -- 0 Mental Status -- 0 Score -- 15 OTHER Carpenter Fall Risk -- Low OUTCOME EVALUATION NOTE: OUTCOME SUMMARY: Paxton merritt- had an EKG this am- he denies any depression and rated his depression as a 5/10. He denies any SI or HI and when asked about his SA he reports he cant remember anything before The event I just woke up 2.5 weeks later in here. He denies any AH or VH and oriented x 4. He does say he is glad to be alive for his kids. His goal for today is to find new strategies to deal with staying calm. Educated re distraction, 4 square breathing, word searches. He was receptive to info- needs to pratice the breathing. Vivek good, had BM., attended groups. PLAN MOVING FORWARD: BARRETT, groups and education strategies re stress. INDIVIDUALIZED FALL PREVENTION INTERVENTIONS: Patient-specific fall risk factors per assessment: [current deficits]: LFR Assistance [level of assistance required for transfers and ambulation none- Supervision [direct monitoring required during toileting and ADLs]: 30 min Surveillance [continuous indirect monitoring]: 30 min Patient-specific fall prevention interventions for sensory deficits provided, if applicable: na CPG GOAL OUTCOME EVALUATION: Plan of Care - Coretta Galdamez E - 03/11/2016 5:58 AM EDT MULTIDISCIPLINARY TREATMENT PLAN Todays Date: 03/11/2016 Patient: Paxton Arguello Admit Date: 03/10/2016 6:48 PM CODE STATUS:Full Code Initial date of care plan. __03/11/2016 Update Q7 days Next Kin:Extended Emergency Contact Information Primary Emergency Contact: April Ramirez Address: [id number] [place] [address] Relation: Sibling Secondary Emergency Contact: Kayla Stephens Address: [address] [place] [address] Mobile Relation: Sibling Working Diagnosis: unspecified mood d/o PATIENT'S REASON FOR HOSPITALIZATION (his or her own words) 1. I don't believe I was feeling suicidal and I don't think I intended to by overdose. STRENGTHS STRESSORS TARGET SYMPTOMS 1. Some social supports Chronic dysthymia SI with overdose 2. Current treaters Relationship issues Poor sleep 3. GOALS 1 Stabilize target symptoms and improve understanding of illness 2 Work with Patient Radiology Services Manager to create and implement aftercare plan 3 Medication optimization 4 Groups for education, skill building and support 5 Complete Relapse Plan prior to discharge PHYSICIAN INTERVENTIONS ACTIVITY INTERVENTIONS 1. Continued psychiatric evaluation 1. Behavioral Activation Communication Program 2. Med management/Brief therapy 2. Therapeutic groups & activities 3. Diagnostic/Medical testing/Labs 3. NURSING INTERVENTIONS PCM & SW INTERVENTIONS 1. Purposeful rounding 1. Facilitate communication with family 2. See Nursing care plan 2. Facilitate communication with providers 3. 3. Assist with discharge planning The multidisciplinary team reviewed falls prevention plan with me. I have worked with my treatment team and agree with the plan above. PATIENT SIGNATURE DATE: Paxton Arguello PRINT NAME: SIGNATURE: DATE: RESIDENT PHYSICIAN ATTENDING PHYSICIAN Dixie Tabares MD NURSING PATIENT MINE UTILITY OPERATOR Coretta Galdamez EMISSION TECHNICIAN [facility] THERAPIST BUDGET OFFICER Amairani Malone DIRECTOR NICU Plan of Care - Lucille Hawk RN - 03/10/2016 10:34 PM EDT Problem: General Plan of Care Goal: Plan of Care Review Outcome: Outcome (s) achieved Date Met: 03/10/16 03/10/162153 Plan of Care Review Plan of Care Outcome Status ongoing (interventions implemented as appropriate) Progress no change OUTCOME EVALUATION NOTE: OUTCOME SUMMARY: Pt has been cooperative and polite. He had his sister here all evening visiting. Heattended wrap up group. He did not score on PHQ-9 . Pt walked a bit on the unit. He denies depression and SI/HI. He states he has trouble chewing food due to teeth issues; he declines a mechanical soft diet. No evidence of psychosis. He has difficulty remembering the events that brought him to the hospital. INDIVIDUALIZED FALL PREVENTION: Assistance: Up ad Reina Supervision: RTU Surveillance: 30 checks Goal: Individualization and Mutuality Outcome: Ongoing (Interventions Implemented as Appropriate) 03/10/161930 Mutuality/Individual Preferences What anxieties, fears or concerns do you have about your health or care? no What questions do you have about your health or care? no What information would help us give you more personalized care? no Goal: Fall Prevention-Safe Patient Handling Outcome: Ongoing (Interventions Implemented as Appropriate) 03/10/16199903/10/162153 Safety Interventions Safety Precautions/Fall Reduction -- fall reduction program maintained Musculoskeletal Interventions Activity/Level of Assistance -- up ad reina Carpenter Fall Risk History of Falling 0 -- Secondary Diagnosis 15 -- Ambulatory Aids 0 -- Intravenous Therapy/Heparin/Saline Lock 0 -- Gait/Transferring 0 -- Mental Status 0 -- Score 15 -- OTHER Carpenter Fall Risk Low -- Goal: Infection Control Outcome: Ongoing (Interventions Implemented as Appropriate) 03/10/162153 Coping/Psychosocial Response Interventions Counseling calming techniques promoted;emotional support provided;reassurance provided;verbalizationof feelings encouraged Safety Interventions Isolation Precautions standard precautions maintained Infection Prevention rest/sleep promoted;promote handwashing;nutrition promoted;hydration promoted;environmental surveillance Goal: Discharge Needs Assessment Outcome: Ongoing (Interventions Implemented as Appropriate) 03/10/162153 Discharge Needs Assessment Concerns to be Addressed adjustment to diagnosis/illness concerns;basic needs concerns;care coordination/care conferences;cognitive/perceptual concerns;compliance issue concerns;coping/stress concerns;decision making concerns;discharge planning concerns;home safety concerns;medication concerns;mental health concerns Readmission Within the Last 30 Days no previous admission in last 30 days Equipment Needed After Discharge CPAP Current Discharge Risk cognitively impaired;psychiatric illness Problem: Coping, Compromised Individual (Adult, Obstetrics, Pediatric) Goal: Identify Signs and Symptoms and Related Risk Factors Signs and symptoms and related risk factors are identified upon initiation of Human Response Clinical Practice Guideline (CPG) Outcome: Ongoing (Interventions Implemented as Appropriate) 03/10/162150 Coping, Compromised Individual Personal Related Risk Factors (Coping, Compromised Individual) multiple stressors;problem solving pattern Environmental Related Risk Factors (Coping, Compromised Individual) prolonged hospitalization;relocation Physiological Related Risk Factors (Coping, Compromised Individual) change in mental processing;diminished cognitive function;health status change;mental illness;physical stressors Treatment Related Related Risk Factors (Coping, Compromised Individual) medication Signs and Symptoms (Coping, Compromised Individual) avoidance behaviors;change in eating habits;decision-making/problem-solving deficit;inability to identify or use social supports;inappropriate copingmechanisms;sleep disturbance;social withdrawal Goal: Effective Coping Patient will demonstrate the desired outcomes. Outcome: Ongoing (Interventions Implemented as Appropriate) 03/10/162150 Coping, Compromised Individual (Adult, Obstetrics, Pediatric) Effective Coping making progress toward outcome documented in this encounter Plan of Treatment Not on filedocumented as of this encounter Procedures Procedure Name Priority Date/Time Associated Diagnosis Comme nts EKG 12-LEAD Routine 03/11/2016 9:38 AM Suicide attempt Result s for this EDT procedure are i n the results section . documented in this encounter Results EKG 12 Lead (03/11/2016 9:38 AM EDT) [facility] Method Time Signature Ventricular rate 80 BPM MUSE SYSTEM Atrial Rate 80 BPM MUSE SYSTEM P-R Interval 148 ms MUSE SYSTEM QRS Duration 98 ms MUSE SYSTEM Q-T Interval 380 ms MUSE SYSTEM QTC Calculated 438 ms MUSE SYSTEM (Bezet) Calculated P [place] 35 degrees MUSE SYSTEM Calculated R [place] 54 degrees MUSE SYSTEM Calculated T [place] 50 degrees MUSE SYSTEM INTERPRETATION Normal sinus rhythm MUSE SYSTEM ST elevation Anterior leads ST elevation Inferior leads Abnormal ECG When compared with ECG of 20-FEB-2016 07:20, ST elevation now present in Anterior leads T wave inversion no longer evident in Inferior leads Confirmed by MD Oj, Kurt ([id number]) on 03/11/2016 4:09:29 PM Specimen Anatomical Collection Method Collection Time Receive d Time (Source) Location / / Volume Laterality 03/11/2016 9:38 AM 6 4:09 EDT PM EDT Dixie Tabares MD ECG ORDERABLES Performing Organization Address City/State/ZIP Code Phon e Number MUSE SYSTEM documented in this encounter Visit Diagnoses Diagnosis Suicide attempt Suicide and self-inflicted injury by uns pecified means documented in this encounter Admitting Diagnoses Diagnosis Suicide attempt Suicide and self-inflicted injury by uns pecified means documented in this encounter Administered Medications Inactive Administered Medications - up to 3 most recent administrations Medication Order MAR Action Action Date Dose Rate Site buPROPion (WELLBUTRIN XL) XL Given 03/17/2016 8:18 AM EDT 300 mg tablet 300 mg 300 mg, Oral, EVERY MORNING, First dose on Mon03/11/16 at 0700, Until Discontinued, DO NOT CRUSH OR OPEN, Routine Given 03/16/2016 8:33 AM EDT 300 mg Given 03/15/2016 8:33 AM EDT 300 mg fluticasone-salmeterol (ADVAIR HFA) 115-21 Given 03/17/2016 8:19 AM EDT 2 puffs mcg/actuation inhaler 2 puff 2 puff, Inhalation, 2 TIMES DAILY, First dose on Mon03/10/16 at 2100, Until Discontinued, Rinse mouth after administration Given 03/16/2016 9:56 PM EDT 2 puffs Given 03/16/2016 8:32 AM EDT 2 puffs lamoTRIgine (LaMICtal) tablet 50 mg Given 03/17/2016 8:19 AM EDT 50 mg 50 mg, Oral, DAILY, First dose on Mon03/15/16 at 1300, Until Discontinued, Routine Given 03/16/2016 8:33 AM EDT 50 mg Given 03/15/2016 3:03 PM EDT 50 mg melatonin tablet 9 mg Given 03/16/2016 9:56 PM EDT 9 mg 9 mg, Oral, NIGHTLY, First dose on Jammie 03/10/16 at 2100, Until Discontinued, Routine Given 03/15/2016 10:20 PM EDT 9 mg Given 03/14/2016 9:52 PM EDT 9 mg rivaroxaban (XARELTO) tablet 15 mg Given 03/17/2016 8:18 AM EDT 15 mg 15 mg, Oral, 2 TIMES DAILY, First dose on Jammie 03/10/16 at 2100, Until Discontinued, Routine Given 03/16/2016 9:56 PM EDT 15 mg Given 03/16/2016 8:34 AM EDT 15 mg traZODone (DESYREL) tablet 50 mg Given 03/16/2016 9:55 PM EDT 50 mg 50 mg, Oral, NIGHTLY, First dose on Mon03/10/16 at 2100, Until Discontinued, Routine Given 03/15/2016 10:22 PM EDT 50 mg Given 03/14/2016 9:52 PM EDT 50 mg valACYclovir (VALTREX) tablet 1,000 mg Given 03/17/2016 8:18 AM EDT 1,000 mg 1,000 mg, Oral, 3 TIMES DAILY, First dose on Jammie 03/10/16 at 2100, Until Discontinued, Routine Given 03/16/2016 9:55 PM EDT 1,000 mg Given 03/16/2016 4:45 PM EDT 1,000 mg documented in this encounter Active and Recently Administered Medications Times are shown in EDT. Scheduled Medication Order 03/15/2016 03/16/2016 03/17/2016 buPROPion (WELLBUTRIN XL) XL tablet 300 mg 0833 (Given - Provider: Lucille Hawk RN) 0833 (Given - Provider: Lucille Hawk RN) 0818 (Gi mac - Provider: Soraya Tobias RN) 300 mg, Oral, EVERY MORNING, First dose on Mon03/11/16 at 0700, Until Discontinued, DO NOT CRUSH OR OPEN, Routine fluticasone-salmeterol (ADVAIR HFA) 115-21 mcg/actuati on inhaler 2 puff 0833 (Given - Provider: Lucille Hawk RN)2221 (Given - Provider: Soraya Tobias RN) 0832 (Given - Provider: Lucille Hawk RN)215 (Given - Provider: Gisell Rivas RN) 0819 (Given - Provider: Laci Jeronimo N) 2 puff, Inhalation, 2 TIMES DAILY, First dose on Mon03/10/16 at 2100, Until Discontinued, Rinse mouth after administration, Routine lamoTRIgine (LaMICtal) tablet 50 mg 1503 (Given - Prov ider: Lucille Hawk RN) 0833 (Given - Provider: Lucille Hawk RN) 0819 (Gi mac - Provider: Soraya Tobias RN) 50 mg, Oral, DAILY, First dose on Mon at 1300, Until Discontinued, Routine melatonin tablet 9 mg 222 (Given - Provider: Soraya Tobias RN) 2155 (Given - Provider: Gisell Rivas RN) 9 mg, Oral, NIGHTLY, First dose on Mon at 2100, Until Discontinued, Routine rivaroxaban (XARELTO) tablet 15 mg 0833 (Given - Provi teodoro: Lucille Hawk RN)222 (Given - Provider: Soraya Tobias RN) 0834 (Given - Provider: Lucille Hawk RN)215 (Given - Provider: Gisell Rivas RN) 0818 (Given - Provider: Soraya Tobias RN) 15 mg, Oral, 2 TIMES DAILY, First dose o n Mon03/10/16 at 2100, Until Discontinued, Routine traZODone (DESYREL) tablet 50 mg 222 (Given - Provider: And ra Jatinder RN) 215 (Given - Provider: Gisell Rivas RN) 50 mg, Oral, NIGHTLY, First dose on Mon03/10/16 at 2100, Until Discontinued, Routine valACYclovir (VALTREX) tablet 1,000 mg 0832 (Given - P rovider: Lucille Hawk RN)1503 (Given - Provider: Lucille Hawk RN)2219 (Given - Provider: Soraya Tobias RN) 0832 (Given - Provider: Lucille Hawk RN)1645 (Given - Provider: Gisell Rivas, RN)2155 (Given - Provider: Gisell Rivas, KANE) 0818 (Given - Provider: Soraya Tobias RN) 1,000 mg, Oral, 3 TIMES DAILY, First dos e on Jammie 03/10/16 at 2100, Until Discontinued, Routine PRN Medication Order 03/15/2016 03/16/2016 03/17/2016 hydrOXYzine (ATARAX) tablet 25 mg 25 mg, Oral, 3 TIMES DAILY PRN, Starting Jammie 03/10/16 at 1918, Until Jammie 03/17/16 at 1340, Anxiety, Routine documented in this encounter Care Teams Distribution Center Assistant Relationship Specialty Start Date End Date Anel Worthy APRN PCP - General General Internal Medicine 03/11/16 [address] [place] [address] documented as of this encounter
--- OUTSIDE RECORDS SUMMARY | 2021-12-27 21:58 | XMS_ITS | Clinical Summary ---
:1975 Author Organization [facility] Address [address] [place] [address] Care Team Providers Name Role Phone Anel Worthy ANY Primary Care Provider [phone] Allergies No known active allergies Medications Medication Sig Dispensed Refills Start Date End Date Status buPROPion (WELLBUTRIN Take 300 mg by 0 Active XL) 300 mg Tablet mouth every Sustained Release 24 morning. hr fluticasone-salmeterol Inhale 2 puffs 1 Inhaler 12 03/10/2016 Active (ADVAIR HFA) 115-21 into the lungs 2 mcg/actuation HFA times daily. Aerosol Inhaler melatonin 3 mg Tablet Take 3 tablets by 0 03/10/2016 Active mouth nightly. traZODone (DESYREL) 50 Take 1 tablet by 90 tablet 3 03/10/2016 Active mg Tablet mouth nightly. lamoTRIgine (LAMICTAL) Take 2 tablets by 30 tablet 0 6 Active 25 mg Tablet mouth daily. Active Problems Problem Noted Date Suicide attempt 03/10/2016 Pulmonary embolism 03/03/2016 Metabolic encephalopathy 03/03/2016 ARDS (adult respiratory distress syndrome) 02/20/2016 Acute hemorrhagic conjunctivitis of both eyes- 11/29 Bipolar affective disorder 11/23/2012 Resolved Problems Problem Noted Date Resolved Date Bacterial pneumonia 03/03/2016 03/03/2016 Overdose 03/03/2016 03/03/2016 Family History Medical History Relation Comments Cancer Maternal Aunt Diabetes Maternal Grandmother Hypertension Maternal Grandmother Cancer Mother Cancer Sister Amblyopia Neg Hx Cataracts Neg Hx Glaucoma Neg Hx Heart Disease Neg Hx Macular Degeneration Neg Hx Retinal Detachment Neg Hx Strabismus Neg Hx Thyroid Disease Neg Hx Relation Status Comments Maternal Aunt Maternal Grandmother Mother Sister Social History Tobacco Use Types Packs/Day Years Used Date Former Smoker Cigarettes 1 30 Quit: 11/18/19 16 Smokeless Tobacco: Never Used Tobacco Cessation: Counseling Given: No Alcohol Use Standard Drinks/Week Comments No 0 (1 standard drink = 0.6 oz pure alcoho l) Sex Assigned at Date Recorded Not on file Last Filed Vital Signs Vital Sign Reading [...] Mass Index 36.64 03/10/2016 8:00 PM EDT Plan of Treatment Health Maintenance Due Date Last Done Comments Covid-19 Vaccine (#1) 1978 Hepatitis C Screening 10/14/1991 Lipid Screening 10/14/1991 Tdap adult 1992 Tetanus vaccine 1992 Colonoscopy 2018 Influenza (Flu) vaccine (1 of 1 - Influenza standard 02/17/2022 series) HIV screen Completed 02/28/2016 Insurance Payer Benefit Plan / Subscriber ID Effective Dates Phone Addre ss Type Group MEDICARE MEDICARE PART [id number] 2012-Presen [phone] [place] [id number] MEDICARE BH MEDICARE [id number] 2012-Presen [phone] SECU RITY PART A & [place] [id number] [place] [id number] 2019-Prese [phone] [address] [place] [address] [id number] 2016-Prese [phone] [address] [place] [address] Advance Directives Latest Code Status on File Code Status Date Activated Date Inactivated Comments Full Code 03/10/2016 7:14 PM 03/17/2016 1:40 PM Does patient have capacity to make decision: Yes Full Code 02/19/2016 4:40 PM 03/10/2016 7:14 PM Does patient have capacity to make decision: No Code Status decision being made per: Attending of Record Content of discussion: presumed Care Teams Customer Quality Specialist Relationship Specialty Start Date End Date Anel Worthy APRN PCP - General General Internal Medicine 03/11/[address] [place] [address]
--- OUTSIDE RECORDS SUMMARY | 2021-12-27 21:59 | XMS_ITS | Encounter Summary ---
:1975 Author Organization [facility] [place] [address] Care Team Providers Name Role Phone None Primary Care Provider Unavailable Reason for Visit Reason Onset Date Comments Follow-up 11/26/2012 Encounter Details Date Type Department Care Team Description 11/26/2012 Telephone Ophthalmology at [facility] C Rigo Epperson MD Follow-up [facility] [address] OPHTHALMOLOGY DEPT. [phone] [place], [place] [address] (Wo rk) Social History Tobacco Use Types Packs/Day Years Used Date Never Assessed Sex Assigned at Date Recorded Not on file documented as of this encounter Miscellaneous Notes Telephone Encounter - Rigo Epperson MD - 11/26/2012 12:46 PM EDT Called an informed Paxton about positive results for adenovirus culture. Discussed prognosis and complications from adenovirus conjunctivitis. Again stressed risk of transmission to others and precautions. Paxton indicated that he felt he was slowly improving. Currently he is completing the Zpack which was begun last week and the still on the Augmentin. My recommendation is that he stop the Augmentin, complete the Zpack and only use AT in the eye. I also communicated with Dr. Yeni OD and Mak Vang MD (pcp office) to let them know the culture results and risks of transmission in their medical offices. documented in this encounter Plan of Treatment Not on filedocumented as of this encounter Visit Diagnoses Not on filedocumented in this encounter Care Teams Slurry Tank Tender Relationship Specialty Start Date End Date None PCP - General 11/23/12 03/10/16 None documented as of this encounter
--- OUTSIDE RECORDS SUMMARY | 2021-12-27 21:59 | XMS_ITS | Encounter Summary ---
:1975 Author Organization [facility] [place] [address] Care Team Providers Name Role Phone None Primary Care Provider Unavailable Reason for Visit Reason Comments Eye Problem Pt sent by [employer] ions for acute swollen OS Encounter Details Date Type Department Care Team Description 11/23/2012 Office Visit Ophthalmology at [facility] Alex Pappas Acute hemorrhagic conjunctiv itis of both eyes- 11/29 (Primary Dx); [facility] [place] [address] [place] [address] [place] [address] Social History Tobacco Use Types Packs/Day Years Used Date Never Assessed Sex Assigned at Date Recorded Not on file documented as of this encounter Patient Instructions Patient InstructionsAlex Epperson MD - 11/23/2012 2:57 PM EDT Use eye medications as instructed by Dr. Epperson during your appointment. For non eye medications not prescribed by the Ophthalmology (Eye) Clinic, please follow up with yourPCP (primary care provider) for instructions. Please call the eye clinic, [phone], for any significant changes in vision, new flashes or floatersor eye pain documented in this encounter Progress Notes Alex Epperson MD - 11/23/2012 2:34 PM EDT Encounter Diagnoses Name Primary? Acute hemorrhagic conjunctivitis of both eyes- 11/29 Yes ??? Bipolar affective disorder Paxton Arguello is a 37 y.o. with a one week history of sequential bilateral acute hemorrhagic follicular conjunctivitis. Moderate response to po augmentin and topical shayne/poly/dex and one shot of ceftriaxone. Differential diagnosis for this Adenovirus, Enterovirus 70 and Coxsachkievirus A24, chlamydia and bacterial conjunctivitis. Spoke with Dr. Connors who is part of his PCP's practice. No results yet on urine yet. Also spoke with Dr. Jaime from [employer] and reviewed plans. Recommendations: - transmission precautions reviewed - stop shayne/poly/dex, complete augmentin course. - Start Azithromycin Z pack (Dr. Connors to prescribe) - Follow up with Dr. Jaime - Findings and concerns discussed with Paxton and he expressed understanding. -Upon Return IOP MR if vision down by 2 lines compared to last visit documented in this encounter Plan of Treatment Not on filedocumented as of this encounter Procedures Procedure Name Priority Date/Time Associated Diagnosis Comme nts CHLYMYDIA GENE AMP Routine 11/23/2012 6:28 Acute hemorrhagic ([facility]/CGP/APD/[facility]H) PM EDT conjunctivitis of both eyes- 11/29 CHLAMYDIA Routine 11/23/2012 6:28 Acute conjunctivitis Resu lts for this TRACHOMATIS PM EDT of both eyes procedure are i n the results section. FUNGUS CULTURE Routine 11/23/2012 6:27 Results fo r this PM EDT procedure are i n the results section. ENTEROVIRUS CULTURE Routine 11/23/2012 6:26 Resul ts for this PM EDT procedure are i n the results section. ADENOVIRUS CULTURE Routine 11/23/2012 6:26 Result s for this PM EDT procedure are i n the results section. HSV CULTURE Routine 11/23/2012 6:26 Acute hemorrhagic Results for this PM EDT conjunctivitis of both proce dure are in eyes- 11/29 the results section. EYE CULTURE Routine 11/23/2012 6:25 Acute hemorrhagic Results for this PM EDT conjunctivitis of both natasha belcher are in eyes- 11/29 the results section. documented in this encounter Results Chlamydia trachomatis (11/23/2012 6:28 PM EDT) Analysis Performed At Patho logist Time Signature Chlamydia Gene Negative [facility] Comment: The only FDA approved specimen types for this assay are cervix, vagina, urethra and urine. ??The sensitivity and specifi city of the assay for other specimen types has not been determined. Chlamydia Source Eye [place] Specimen Anatomical Collection Method Collection Time Receive d Time (Source) Location / / Volume Laterality Specimen of 11/23/2012 6:28 PM 3 6:28 unknown material EDT PM EDT (specimen) Comment: CONJUNCTIVAL SWAB LEFT EYE Resulting Agency Comment Spec In Lab Alex Epperson MD MICROBIOLOGY - GENERAL ORDER LEE Performing Organization Address City/State/Z[place] [address] [facility] PERDOMOMYKECESAR Fungus culture (11/23/2012 6:27 PM EDT) Patholo gist Method Time Signature Fungus CERNER Culture ? Patient Name: Faisal ARGUELLO ?Ordered By: ALEX EPPERSON ? MR#: [id number] ?LOC: ??4B ? /Sex: ??1975 (37 years), ? Male ? PROCEDURE: Fungus Culture ?SOURCE: Eye Fl ? COLLECTED: 11/23/2012 18:27 ? STARTED: 11/23/2012 18:28 ? FINAL REPORT ? Final Report ? Verified:12/25/2012 07:27 ? No Fungus isolated ? PRELIMINARY REPORT ? Preliminary Report ? Verified:11/26/2012 08:24 ? No Fungus isolated to date ? Specimen (Source) Anatomical Collection Method Collection Time Re ceived Time Location / / Volume Laterality Structure of 11/23/2012 6:27 11/23/2012 6 :27 aqueous humor PM EDT PM EDT (body structure) Resulting Agency Comment Spec In Lab Alex Epperson MD MICROBIOLOGY - GENERAL ORDER LEE Performing Organization Address City/State/ZIP [place] [address] [place] D[place] Enterovirus Culture (11/23/2012 6:26 PM EDT) Component Value Ref Test Analysis Performed At [facility] Range Method Time Signature Enterovirus CERNER Culture ? Patient Name: Faisal ARGUELLO ?Ordered By: ALEX EPPERSON ? MR#: [id number] ?LOC: ??4B ? /Sex: ??1975 (37 years), ? Male ? PROCEDURE: Enterovirus Culture ?SOURCE: Other ? COLLECTED: 11/23/2012 18:26 ?FREE TEXT SOURCE: conjunctiva ? STARTED: 11/24/2012 12:23 ? FINAL REPORT ? Final Report ? Verified:11/29/2012 14:17 ? No Enterovirus isolated in cell culture ? PRELIMINARY REPORT ? Preliminary Report ? Verified:11/26/2012 11:12 ? No Enterovirus isolated in cell culture to date ? Culture in progress. ? Enterovirus Cultu re ? Interpretive Results ? This test was develop ed and its performance determined by the [facility] Dept. of ? Pathology, Clinical ? Laboratory. ??It has not been cleared or approved by the U.S. Food and Drug ? Administration. ??The FDA has ? determined that such clearance or approval is not nec essary. ? This test is used for clinical purposes. ? Specimen Anatomical Collection Method Collection Time Receive d Time (Source) Location / / Volume Laterality Specimen of 11/23/2012 6:26 PM 3 6:26 unknown material EDT PM EDT (specimen) Comment: CONJUNCTIVA Resulting Agency Comment Spec In Lab Alex Epperson MD MICROBIOLOGY - GENERAL ORDER LEE Performing Organization Address City/State/ZIP [place] [address] [place] DORAN Adenovirus Culture (11/23/2012 6:26 PM EDT) [facility] Method Time Signature Adenovirus CERNER Culture ? Patient Name: LASTFaisal Esperanza ?Ordered By: ALEX EPPERSON ? MR#: [id number] ?LOC: ??4B ? /Sex: ??1975 (37 years), ? Male ? PROCEDURE: Adenovirus Culture ?SOURCE: Eye ? COLLECTED: 11/23/2012 18:26 ? STARTED: 11/24/2012 12:21 ? FINAL REPORT ? Final Report ? Verified:11/26/2012 10:47 ? Adenovirus isolated in cell culture ? Adenovirus Cultur e ?Interpretive Results ? This test was develop ed and its performance determined by the [facility] Dept. of ? Pathology, Clinical ? Laboratory. ??It has not been cleared or approved by the U.S. Food and Drug ? Administration. ??The FDA has ? determined that such clearance or approval is not nec essary. ? This test is used for clinical purposes. ? Specimen Anatomical Collection Method Collection Time Receive d Time (Source) Location / / Volume Laterality Specimen from 11/23/2012 6:26 PM 11/24/19 13 6:26 eye (specimen) EDT PM EDT Resulting Agency Comment Spec In Lab Alex Epperson MD MICROBIOLOGY - GENERAL ORDER LEE Performing Organization Address City/State/[place] [address] [facility] Herpes Simplex Virus Culture Other (11/23/2012 6:26 PM EDT) [facility] Method Time Signature Herpes CERNER Simplex Virus ? Patient Name: Faisal ARGUELLO ?Ordered By: ALEX EPPERSON [facility] Culture ? MR#: [id number] ?LOC: ??4B ? /Sex: ??1975 (37 years), ? Male ? PROCEDURE: Herpes Simplex Virus Culture ?SOURCE: Other ? COLLECTED: 11/23/2012 18:26 ?FREE TEXT SOURCE: Left conjunctiva. Please assess f or ? STARTED: 11/23/2012 18:26 ? adenoviris and if possible entero and ? coxsacchi virus ? FINAL REPORT ? Final Report ? Verified:12/01/2012 07:55 ? No Herpes Simplex Virus isolated in cell culture ? PRELIMINARY REPORT ? Preliminary Report ? Verified:11/26/2012 11:36 ? No Herpes Simplex Virus isolated in cell culture to d ate ? Culture in progress. ? Specimen Anatomical Collection Method Collection Time Receive d Time (Source) Location / / Volume Laterality Specimen of 11/23/2012 6:26 PM 3 6:26 unknown material EDT PM EDT (specimen) Comment: LEFT CONJUNCTIVA. PLEASE ASSESS FOR ADENOVIRIS AND IF POSSIBLE ENTERO AND COXSACCHI VIRUS Resulting Agency Comment Spec In Lab Alex Epperson MD MICROBIOLOGY - GENERAL ORDER LEE Performing Organization Address City/State/ZIP [place] [address] [place] D[place] Eye culture Cornea; Eye, Left (11/23/2012 6:25 PM EDT) [facility] Method Time Signature Eye Culture [facility] ? Patient Name: PAXTON ARGUELLO ?Ordered By: ALEX EPPERSON ? MR#: [id number] ?LOC: ??4B ? /Sex: ??1975 (37 years), ? Male ? PROCEDURE: Eye Culture ?SOURCE: Cornea ? COLLECTED: 11/23/2012 18:25 ? BODY SITE: Left Eye ? STARTED: 11/23/2012 18:26 ? FINAL REPORT ? Final Report ? Verified:11/27/2012 13:30 ? No growth ? PRELIMINARY REPORT ? Preliminary Report ? Verified:11/24/2012 08:35 ? No growth to date. ? Specimen Anatomical Collection Method Collection Time Receive d Time (Source) Location / / Volume Laterality Specimen from LEFT EYE STRUCTURE 11/23/2012 6:25 PM 6:25 cornea / Unknown EDT PM EDT (specimen) Resulting Agency Comment Spec In Lab Alex Epperson MD MICROBIOLOGY - GENERAL ORDER LEE Performing Organization Address City/State/[place] [address] [facility] documented in this encounter Visit Diagnoses Diagnosis Acute hemorrhagic conjunctivitis of both eyes- 11/29 - Primary Acute conjunctivitis, unspecified Bipolar affective disorder Bipolar disorder, unspecified documented in this encounter Care Teams Lending Activities Supervisor Relationship Specialty Start Date End Date None PCP - General 11/23/12 03/10/16 None documented as of this encounter
--- OUTSIDE RECORDS SUMMARY | 2021-12-27 21:59 | XMS_ITS | Encounter Summary ---
:1975 Author Organization [facility] [place] [address] Care Team Providers Name Role Phone None Primary Care Provider Unavailable Reason for Visit Reason Comments Conjunctivitis Encounter Details Date Type Department Care Team Description 12/26/2012 Follow-Up Ophthalmology at [facility] Rigo Pappas [facility] MD Zach conjunctivitis of both [facility] eyes- 11/29 (Primary Dx) [place] [address] CENTER [phone] OPHTHALMOLOGY DEPT. [place], [place] [address] Social History Tobacco Use Types Packs/Day Years Used Date Never Assessed Sex Assigned at Date Recorded Not on file documented as of this encounter Patient Instructions Patient InstructionsRigo Epperson MD - 12/26/2012 1:54 PM EDT Use eye medications as instructed by Dr. Epperson during your appointment. For non eye medications not prescribed by the Ophthalmology (Eye) Clinic, please follow up with yourPCP (primary care provider) for instructions. Please call the eye clinic, [phone], for any significant changes in vision, new flashes or floatersor eye pain documented in this encounter Progress Notes Rigo Epperson MD - 12/26/2012 1:51 PM EDT Encounter Diagnosis Name Primary? Acute hemorrhagic conjunctivitis of both eyes- 11/29 Yes Paxton Arguello is a 37 y.o. with culture proven adenoviral conjunctivitis OU in 11/29 resolved without complication with conservative care. Specifically, I do not see any conj scarring or corneal SEI. He is to follow up with Dr. Heart for routine eye are. Plan: - - Follow up with [facility] as needed - Findings and concerns discussed with Paxton and he expressed understanding. -Upon Return IOP MR if vision down by 2 lines compared to last visit documented in this encounter Plan of Treatment Not on filedocumented as of this encounter Visit Diagnoses Diagnosis Acute hemorrhagic conjunctivitis of both eyes- 11/29 - Primary Acute conjunctivitis, unspecified documented in this encounter Care Teams Cloth Covered Helmet Puller Relationship Specialty Start Date End Date None PCP - General 11/23/12 03/10/16 None documented as of this encounter
--- OUTSIDE RECORDS SUMMARY | 2021-12-27 21:59 | XMS_ITS | Encounter Summary ---
:1975 Author Organization [facility] [place] [address] Care Team Providers Name Role Phone None Primary Care Provider Unavailable Encounter Details Date Type Department Care Team Description 02/19/2016 Hospital Encounter [facility] at at Lucille Breaux, Bobby Ramon respiratory failure, unspecified whether with hypoxia or hypercapnia; Zaria WHEATLEY Pulmonary infiltrates [facility] [address] [place], [place] EMERGENCY [address] MEDICINE [phone] [place] [address] Social History Tobacco Use Types Packs/Day Years Used Date Former Smoker Cigarettes 1 30 Quit: 11/18/19 16 Smokeless Tobacco: Never Used Alcohol Use Standard Drinks/Week Comments No 0 (1 standard drink = 0.6 oz pure alcoho l) Sex Assigned at Date Recorded Not on file documented as of this encounter Medications at Time of Discharge Medication Sig Dispensed Refills Start Date End Date buPROPion (WELLBUTRIN XL) Take 300 mg by mouth 0 300 mg Tablet Sustained every morning. Release 24 hr fluticasone-salmeterol Inhale 2 puffs into 1 Inhaler 12 02/18 (ADVAIR HFA) 115-21 the lungs 2 times mcg/actuation HFA Aerosol daily. Inhaler melatonin 3 mg Tablet Take 3 tablets by 0 016 mouth nightly. traZODone (DESYREL) 50 mg Take 1 tablet by 90 tablet 3 02/18 Tablet mouth nightly. QUEtiapine (SEROQUEL) 100 Take 100 mg by mouth 0 03/10/2016 mg Tablet 2 times daily. Not filled since October QUEtiapine (SEROQUEL) 50 Take 50 mg by mouth 0 03/10/2016 mg Tablet 2 times daily. lamoTRIgine (LAMICTAL) Take 150 mg by mouth 0 03/10/2016 150 mg Tablet daily. lamoTRIgine (LAMICTAL) Take 100 mg by mouth 0 03/10/2016 100 mg Tablet 2 times daily. valACYclovir (VALTREX) Take 2 tablets by 18 tablet 0 201503/17/2016 500 mg Tablet mouth 3 times daily for 3 days. rivaroxaban 15 mg Tablet Take 1 tablet by 0 03/1003/17/2016 mouth 2 times daily. rivaroxaban (XARELTO) 10 Take 1.5 tablets by 57 tablet 0 03/16/2016 mg Tablet mouth 2 times daily for 19 days. documented as of this encounter Plan of Treatment Not on filedocumented as of this encounter Visit Diagnoses Diagnosis Acute respiratory failure, unspecified w hether with hypoxia or hypercapnia Pulmonary infiltrates Other nonspecific abnormal finding of ariela ng field documented in this encounter Care Teams Discount Clerk Relationship Specialty Start Date End Date None PCP - General 11/23/12 03/10/16 None documented as of this encounter
--- NOTE | 2021-12-27 22:00 | DI.RAD_ITS ---
Exam(s) XR PORTABLE CHEST AP EXAM: XR PORTABLE CHEST AP CLINICAL HISTORY: SOB, Hx COPD, PUI TECHNIQUE: 2D digital imaging was performed of the chest. One image was obtained. An AP view was ob tained. COMPARISON: CR,XR XR PORTABLE CHEST AP from 02/05/2021 FINDINGS: MEDIASTINUM: Normal. HEART: Normal. PULMONARY VASCULATURE: Normal. LUNGS: Question of an infiltrate in the left lung base. PLEURAL SPACE: No pleural effusion or pneumothorax. BONE:Within normal limits for the patient's age. OTHER FINDINGS:Normal. IMPRESSION: Question of a left basilar infiltrate. Pneumonia cannot be excluded. DATA REPOSITORY: RADIATION DOSE DELIVERED:
--- NOTE | 2021-12-27 22:00 | RT.EKG_ITS ---
APPROVED REPORT Exam: Resting ECG Reason for Exam: SOB Patient Location: E HR:85 bpm ECG Measurements Heart Rate 85 AXIS OH 143 P 53 QRSd 102 QRS 133 QT 372 T 59 QTc 442 Conclusion Sinus rhythm...normal P axis, V-rate 60- 99 Inferior infarct, old...Q >35mS, II III aVF
--- OUTSIDE RECORDS SUMMARY | 2021-12-27 22:01 | XMS_ITS | Encounter Summary ---
:1975 Author Organization [facility] Address [address] [place] [address] Care Team Providers Name Role Phone Anel Worthy PENSION FUND MANAGER Primary Care Provider Encounter Details Date Type Department Care Team Description 01/30/2021 Lab Requisition [facility] Outr Resulting Lab, Pathology & Laboratory Provider [facility] [address], [place] [address] Social History Tobacco Use Types Packs/Day Years Used Date Never Assessed Sex Assigned at Date Recorded Not on file documented as of this encounter Plan of Treatment Not on filedocumented as of this encounter Procedures Procedure Name Priority Date/Time Associated Diagnosis Comme nts COVID-19 TEST [facility] Today 01/29/2021 16:15 LAB PCR EDT COVID-19 TESTING Routine 01/29/2021 16:15 Results for this EDT procedure are i n the results section. documented in this encounter Results COVID-19 TEST [facility] LAB PCR (01/29/2021 16:15 EDT) Specimen Swab - Entire nasopharynx (body structur e) Performing Organization Address City/State/ZIP Code Phon e Number [facility] [address] [place] [address] SERVICES COVID-19 TESTING (01/29/2021 16:15 EDT) COVID-19 rt-PCR Negative Negative [facility] Result Comment: [facility] This test has not been FDA c leared or approved. This test has been authorized by FDA under an EUA for use by authorized laboratories. This test has been authorized only for detection of nucleic acid fro SERVICES m 2018-nCoV, not for any oth er viruses or pathogens. This test is only authorized for the duration of the declaration that circumstances exist justifying the authorization of emergency use of in vitro d iagnostic tests for detectio n and/or diagnosis of 2019-nCoV under section 564(b)(1) of Act, 21 U.S.C ?? 360bbb-3(b) (1), unless the authorization is terminated or revoked sooner. Negative results do not prec lude 2019-nCoV infection and should not be used as the sole basis for treatment or other patient management decisions. Negative results must be combined with clinical observa tions, patient history, and epidemiological informatio n. Performed on the [employer] instrument Performing Lab [place] [facility] Lab [facility] SERVICES Specimen Swab Performing Organization Address City/State/ZIP Code Phon e Number [facility] [address] [place] [address] SERVICES documented in this encounter Visit Diagnoses Not on filedocumented in this encounter Care Teams Behavioral Assistant Relationship Specialty Start Date End Date Anel Worthy NP PCP - General 08/15/14 [address] [place], [place] [id number] documented as of this encounter
--- OUTSIDE RECORDS SUMMARY | 2021-12-27 22:01 | XMS_ITS | Encounter Summary ---
:1975 Author Organization [facility] Address [address] [place] [address] Care Team Providers Name Role Phone Unknown, Provider Primary Care Provider Encounter Details Date Type Department Care Team Description 08/13/2014 Results Only [facility] Amanda Jackson, DO [phone] [facility] [place] [address] (Wo rk) Social History Tobacco Use Types Packs/Day Years Used Date Never Assessed Sex Assigned at Date Recorded Not on file documented as of this encounter Plan of Treatment Not on filedocumented as of this encounter Procedures Procedure Name Priority Date/Time Associated Diagnosis Comme [facility] SURGICAL PATHOLOGY Routine 08/13/2014 20:30 Resul ts for this EST procedure are i n the results section. documented in this encounter Results SURGICAL PATHOLOGY (08/13/2014 20:30 EST) Pathology Report: SURGICAL PATHOLOGY REPORT [facility] Reports generated via electronic interface conta in original data; [facility] however they are lacking the format of the original re port. SERVICES Caution should be taken when reading/interpreting unfo rmatted reports. Name: ? CORTEZ ARGUELLO ? Accession #: ? [id number] ? : ? 1975 (Age: 38) ??M ? Collect Date: ? 08/13/2014 ? Location: ? [facility] ? Receive Date: ? 015 ? Provider: AMANDA JACKSON DO Copy to: [place] HAYNES HUMAN RESOURCES TECHNICIAN ? Final Pathologic Diagnosis: HERNIA SAC, UMBILICAL, RESECTION: - ??Fibromembranous tissue, consistent with hernia sac . Document reviewed and electronically signed by: GUEVARA CLANCY MD Report ??Date: 08/18/2014 13:30 By the signature above, the attending physician certif ies that he/she has personally conducted a gross and/or microscopic examin ation of the described specimens and rendered or confirmed the above diagnosi s. Specimen(s) Received: Hernia sac Clinical History: Umbilical hernia Gross Description: ? Received in formalin labelled with proper patient identification (initials L, K) and hernia sac is a mehta-red cauterized elongat ed fibromembranous sac-like structure (7.5 x 2.7 x 0.5 cm). ??One s urface is composed of mehta-red diffusely hyperemic serosa. The cut surfaces are mehta-brown and slightly rubbery, without a discrete lesion pr esent. ??Three entry level account representative sections are submitted in 1. Angelic Patel 08/14/2014 08:40 AM End of Report Specimen Performing Organization Address City/State/ZIP Code Phon e Number [facility] [address] [place] [address] SERVICES documented in this encounter Visit Diagnoses Not on filedocumented in this encounter Care Teams Polisher And Buffer Relationship Specialty Start Date End Date Unknown, Provider, PCP - General 08/13/14 08/14/14 documented as of this encounter
--- OUTSIDE RECORDS SUMMARY | 2021-12-27 22:01 | XMS_ITS | Encounter Summary ---
:[address] [facility] Address [address] [place] [address] Care Team Providers Name Role Phone Anel Worthy LOGISTICS CLERK Primary Care Provider Encounter Details Date Type Department Care Team Description 04/23/2021 Lab Requisition [facility] Outr Resulting Lab, Pathology & Laboratory Provider [facility] [address], [place] [id number] Social History Tobacco Use Types Packs/Day Years Used Date Never Assessed Sex Assigned at Date Recorded Not on file documented as of this encounter Plan of Treatment Not on filedocumented as of this encounter Procedures Procedure Name Priority Date/Time Associated Diagnosis Comme nts INFLUENZA A AND Routine 04/23/2021 3:20 EDT Resul ts for this B,RSV PCR procedure are i n the results section. documented in this encounter Results INFLUENZA A AND B,RSV PCR (04/23/2021 3:20 EDT) FLU A RNA Result Negative Negative [facility] FLU B RNA Result Negative Negative [facility] RSV RNA Result Negative Negative [facility] Performing Lab [place] [facility] Lab [facility] SERVICES Specimen Swab - Entire nasopharynx (body structur e) Performing Organization Address City/State/ZIP Code Phon e Number [facility] [address] [place] [address] SERVICES documented in this encounter Visit Diagnoses Not on filedocumented in this encounter Care Teams Knobber Relationship Specialty Start Date End Date Anel Worthy, LOGISTICS CLERK PCP - General 08/15/14 [address] [place] [address] documented as of this encounter
--- OUTSIDE RECORDS SUMMARY | 2021-12-27 22:01 | XMS_ITS | Encounter Summary ---
:1975 Author Organization [facility] Address [address] [place] [address] Care Team Providers Name Role Phone Anel Worthy MEDIATION COMMISSIONER Primary Care Provider Encounter Details Date Type Department Care Team Description 12/22/2021 Lab Requisition [facility] Outr Resulting Lab, Pathology & Laboratory Provider [facility] [address], [place] [address] Social History Tobacco Use Types Packs/Day Years Used Date Never Assessed Sex Assigned at Date Recorded Not on file documented as of this encounter Plan of Treatment Not on filedocumented as of this encounter Procedures Procedure Name Priority Date/Time Associated Diagnosis Comme nts COVID-19 TEST [facility] Today 12/21/2021 15:00 LAB PCR EDT COVID-19 TESTING Routine 12/21/2021 15:00 Results for this EDT procedure are i n the results section. documented in this encounter Results COVID-[address] [facility] LAB PCR (12/21/2021 15:00 EDT) Specimen Swab Performing Organization Address City/State/ZIP Code Phon e Number [facility] [address] [place] [address] SERVICES COVID-19 TESTING (12/21/2021 15:00 EDT) COVID-19 rt-PCR Negative Negative [facility] Result Comment: [facility] This test has not been FDA c leared or approved. This test has been authorized by FDA under an EUA for use by authorized laboratories. This test has been authorized only for detection of nucleic acid fro SERVICES m 2019-nCoV, not for any oth er viruses or [...] tions, patient history, and epidemiological informatio n. Testing was performed using the nickolas SARS-CoV-2 assay ([employer] on the Nickolas 6800 System Performing Lab [facility] [address] 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
--- OUTSIDE RECORDS SUMMARY | 2021-12-27 22:01 | XMS_ITS | Encounter Summary ---
:1975 Author Organization [facility] Address [address] [place] [address] Care Team Providers Name Role Phone Unknown, Provider Primary Care Provider Encounter Details Date Type Department Care Team Description 08/13/2014 Hospital Encounter [facility] - S Unknown, Pro Alvin siegel MD [address] [facility] [phone] [place] [address] (Work) [phone] Social History Tobacco Use Types Packs/Day Years Used Date Never Assessed Sex Assigned at Date Recorded Not on file documented as of this encounter Discharge Disposition Disposition Code Departure Means Destination Home or Self Penitentiary documented in this encounter Plan of Treatment Not on filedocumented as of this encounter Visit Diagnoses Not on filedocumented in this encounter Care Teams Resaw Tailer Relationship Specialty Start Date End Date Unknown, Provider, PCP - General 08/13/14 08/14/14 documented as of this encounter
--- NOTE | 2021-12-27 22:10 | W.ED.GENAD ---
Discharge Plan Disposition Patient Disposition: HOME Condition: Stable Discharge Details Clinical Impression: COPD exacerbation Primary Care Provider: Marium Shetty ED Provider: Becca Mahoney Home Meds and New Rx's Prescriptions: New prednisone 20 mg tablet 60 mg PO DAILY 9 Days Qty: 17 0RF Rx Instructions: Take 3 tabs daily x 3 days, Take 2 tabs daily x 3 days, Take one tab daily x 3 days. Continued budesonide-formoterol [Symbicort] 80-4.5 mcg/actuation HFA aerosol inhaler 2 puff Inhalation BID Qty: 3 3RF albuterol sulfate [ProAir HFA] 90 mcg/actuation HFA aerosol inhaler 2 puff Inhalation Q4H PRN Qty: 8.5 12RF Spiriva Respimat 1.25 mcg/actuation mist 2 puff inhalation DAILY Qty: 4 8RF prednisone 20 mg tablet 40 mg PO DAILY Qty: 10 0RF amoxicillin-pot clavulanate [Augmentin] 500-125 mg tablet 1 tab PO BID Qty: 20 0RF Discharge Instructions Instructions: How to Stop Smoking (ED), COPD (Chronic Obstructive Pulmonary Disease) (ED) Additional Instructions: Please take your long-acting inhalers as previously prescribed. Take the prednisone taper as prescribed. Consider cutting back on smoking is the most important thing you can do for your health. Please use your CPAP. Please see freelance graphic designer Dr. Clayton in the next 1 to 2 weeks. Follow up with primary care provider in 3-5 days. Return to ED sooner if any worsening shortness of breath, chest pain, or concerns. Increase oral fluids. Referrals: Bharti Reyez MD [ [facility] STAFF PHYSICIAN] - 1 week (COPD Exacerbation) Medical Decision Making 46-year-old male presents to the ED with chief complaint of shortness of breath and COPD exacerbation which worsened today. ? He reports shortness of breath worse with lying down. Patient recently finished a 5-day stent of prednisone 40 mg daily yesterday. He is still a daily smoker. He does report some chest tightness which has been on and off for the last couple weeks worse today. No radiation of chest pain. He has only been using his albuterol inhaler, he reports that he feels worse after using the long-acting inhalers. He does have bilateral expiratory wheezes noted on initial presentation. Past medical history includes obesity, depression, hypertension, asthma/COPD, history of PE in 2016, prediabetic, obstructive sleep apnea, Work-up ordered including EKG, serial troponins, D-dimer, DuoNeb, methylprednisolone 125 mg IV portable chest x-ray. Rapid COVID swab. Will consider CT rule out PE. CBC shows white blood cell count 15.42 which could be from his recent prednisone use, CMP largely at baseline he had a slightly elevated at 23, glucose 112 calcium 8.3 AST 66 ALT 106 which is at baseline. D-dimer within normal limits. 2332: Patient reevaluation wheezing has decreased, but air movement noted. Patient reports that he does still feel somewhat short of breath but he feels better than when he arrived. I did discuss with him home care including taking the long-acting out inhalers as previously prescribed decreasing smoking, and using his CPAP machine patient reports that he does not like the way the Spiriva takes and that the CPAP machine dries him out. proBNP within normal limits, patient is taking Augmentin currently for possible sinusitis. We will give another DuoNeb prior to discharge. Appears the patient is noncompliant with his previously prescribed COPD regimen. I will place care management referral to get him in with pulmonology. He has not seen pulmonology since May of last year. I will place patient on a prednisone taper for the next 10 days. Medical Records Medical records reviewed: Yes I reviewed the patient's medical records. Lab Data Lab results reviewed: Yes I reviewed the patient's lab results. Labs: Laboratory Tests Range/Units 12/27/21 12/27/21 12/27/21 22:30 22:30 22:30 WBC (4.4-10.8) 10^3/uL RBC (4.36-5.78) 10^6/uL Hgb (13.5-17.5) g/dL Hct (40.0-50.0) % MCV (80-95) fL MCH (27.0-33.0) pg MCHC (32.0-36.0) % RDW (11.8-14.1) % Plt Count (130-400) 10^3/uL MPV (8.0-11.0) fL Immature Gran % Neutrophils % Lymphocytes % Monocytes % Eosinophils % Basophils % Nucleated RBC % (0.0-0.3) % Absolute Neutrophils (1.2-6.7) 10^3/uL Absolute Lymphocytes (1.2-3.4) 10^3/uL Absolute Monocytes (0.1-0.8) 10^3/uL Absolute Eosinophils (0.0-0.7) 10^3/uL Absolute Basophils (0.0-0.2) 10^3/uL RBC Morphology D-Dimer (<500) ng/mlFEU 431 Sodium (136-145) mmol/L 139 Potassium (3.5-5.1) mmol/L 3.6 Chloride (98-107) mmol/L 105 Carbon Dioxide (21.0-32.0) mmol/L 27.0 Anion Gap (3-11) mmol/L 7.0 BUN (7-18) mg/dL 23 H Creatinine (0.70-1.30) mg/dL 1.0 Estimated GFR/1.73 m2 (mL/min/1.73m2) >= 60.00 Glucose (74-106) mg/dL 112 H Calcium (8.5-10.1) mg/dL 8.3 L Magnesium (1.8-2.4) mg/dL 2.2 Total Bilirubin (0.2-1.0) mg/dL 0.4 AST (15-37) U/L 66 H ALT (16-63) U/L 106 H Alkaline Phosphatase (46-116) U/L 88 Troponin I (<or=60) ng/L < 50 NT-Pro-B Natriuret Pep (<300) pg/mL 27 Total Protein (6.4-8.2) g/dL 6.7 Albumin (3.4-5.0) g/dL 3.2 L COVID-19 Source SARS-CoV-2 (PCR) (Negative) Range/Units 12/27/21 12/27/21 22:30 22:40 WBC (4.4-10.8) 10^3/uL 16.42 H RBC (4.36-5.78) 10^6/uL 4.85 Hgb (13.5-17.5) g/dL 15.0 Hct (40.0-50.0) % 44.7 MCV (80-95) fL 92 MCH (27.0-33.0) pg 30.9 MCHC (32.0-36.0) % 33.6 RDW (11.8-14.1) % 14.1 Plt Count (130-400) 10^3/uL 340 MPV (8.0-11.0) fL 9.3 Immature Gran % 0.5 Neutrophils % 48.0 Lymphocytes % 39.7 Monocytes % 7.2 Eosinophils % 4.0 Basophils % 0.6 Nucleated RBC % (0.0-0.3) % 0.0 Absolute Neutrophils (1.2-6.7) 10^3/uL 7.88 H Absolute Lymphocytes (1.2-3.4) 10^3/uL 6.52 H Absolute Monocytes (0.1-0.8) 10^3/uL 1.18 H Absolute Eosinophils (0.0-0.7) 10^3/uL 0.66 Absolute Basophils (0.0-0.2) 10^3/uL 0.10 RBC Morphology Normal D-Dimer (<500) ng/mlFEU Sodium (136-145) mmol/L Potassium (3.5-5.1) mmol/L Chloride (98-107) mmol/L Carbon Dioxide (21.0-32.0) mmol/L Anion Gap (3-11) mmol/L BUN (7-18) mg/dL Creatinine (0.70-1.30) mg/dL Estimated GFR/1.73 m2 (mL/min/1.73m2) Glucose (74-106) mg/dL Calcium (8.5-10.1) mg/dL Magnesium (1.8-2.4) mg/dL Total Bilirubin (0.2-1.0) mg/dL AST (15-37) U/L ALT (16-63) U/L Alkaline Phosphatase (46-116) U/L Troponin I (<or=60) ng/L NT-Pro-B Natriuret Pep (<300) pg/mL Total Protein (6.4-8.2) g/dL Albumin (3.4-5.0) g/dL COVID-19 Source Nasal/Nares SARS-CoV-2 (PCR) (Negative) Negative HPI General Mode of arrival: ambulatory. Date/Time Provider Initiated Documentation: 12/27/21 21:53. Limitations to Documentation: no limitations. Information obtained by: patient, RN notes reviewed and old records reviewed. HPI Narrative: 46-year-old male presents to the ED with chief complaint of shortness of breath and COPD exacerbation which worsened today. ? He reports shortness of breath worse with lying down. Patient recently finished a 5-day stent of prednisone 40 mg daily yesterday. He is still a daily smoker. He does report some chest tightness which has been on and off for the last couple weeks worse today. No radiation of chest pain. He has only been using his albuterol inhaler, he reports that he feels worse after using the long-acting inhalers. He does have bilateral expiratory wheezes noted on initial presentation. Past medical history includes obesity, depression, hypertension, asthma/COPD, history of PE in 2016, prediabetic, obstructive sleep apnea, Related Data Home Medications Medication Instructions Recorded Confirmed budesonide-formoterol HFA 80 2 puff inhalation BID ##3 04/28/20 12/27/21 mcg-4.5 mcg/actuation aerosol inhaler (Symbicort) tiotropium bromide 1.25 2 puff inhalation DAILY #4 grams 03/08/21 12/27/21 mcg/actuation mist for inhalation (Spiriva Respimat) albuterol sulfate 90 mcg/actuation 2 puff inhalation Q4H PRN #8.5 11/03/21 12/27/21 aerosol inhaler (ProAir HFA) grams amoxicillin 500 mg-potassium 1 tab PO BID #20 tabs 12/21/21 12/27/21 clavulanate 125 mg tablet (Augmentin) prednisone 20 mg tablet 40 mg PO DAILY #10 tabs 12/21/21 12/27/21 prednisone 20 mg tablet 60 mg PO DAILY COPD 9 days #17 tabs 12/27/21 Previous Rx's Medication Instructions Recorded budesonide-formoterol HFA 80 2 puff inhalation BID ##3 04/28/20 mcg-4.5 mcg/actuation aerosol inhaler (Symbicort) tiotropium bromide 1.25 2 puff inhalation DAILY #4 grams 03/08/21 mcg/actuation mist for inhalation (Spiriva Respimat) albuterol sulfate 90 mcg/actuation 2 puff inhalation Q4H PRN #8.5 11/03/21 aerosol inhaler (ProAir HFA) grams amoxicillin 500 mg-potassium 1 tab PO BID #20 tabs 12/21/21 clavulanate 125 mg tablet (Augmentin) prednisone 20 mg tablet 40 mg PO DAILY #10 tabs 12/21/21 prednisone 20 mg tablet 60 mg PO DAILY COPD 9 days #17 tabs 12/27/21 Allergies Allergy/AdvReac Type Severity Reaction Status Date / Time sertraline Allergy Unknown PARADOXICAL Verified 12/27/21 22:15 REACTION General VIDA: 3 Review of Systems All systems reviewed & are unremarkable except as noted in HPI and below Constitutional Constitutional: Reports as per HPI, Reports difficulty sleeping and Denies fever(s) ENT Comments: Recent sinus infection on Augmentin Cardiovascular Cardiovascular: Reports chest pain (Described as chest tightness), Reports diaphoresis, Denies radiating jaw, neck or arm pain, Reports dyspnea and Reports orthopnea Respiratory Respiratory: Denies hemoptysis, Denies excessive phlegm production, Reports dyspnea and Reports wheezing Gastrointestinal Gastrointestinal: Denies diarrhea, Denies nausea and Denies vomiting Allergic/Immunologic Allergic/Immunologic: Reports wheezing PFSH All Active Problems (Updated 12/27/21 @ 23:46 by Becca Mahoney NP) COPD exacerbation (Acute) Pre-diabetes (Acute) Pulmonary embolism (Chronic 03/21/16) Obesity, morbid, BMI 50 or higher (Acute) Umbilical hernia (Acute) ARDS survivor (Acute) Pneumonia (Acute) COPD exacerbation (Acute) Atypical pneumonia (Acute) Bipolar affective disorder (Acute 03/21/16) Nicotine dependence (Acute 01/11/12) 3/4-1 PPD Elevated WBC count (Acute) Elevated LFTs (Acute) Noncompliance with medication regimen (Acute) Noncompliance with CPAP treatment (Acute) Essential hypertension (Acute) Depressive disorder (Chronic 01/10/12) [facility] seen by Reji whipple 08/14/13, 11/20/13,02/18/14 10/28/19 Ov with EMETERIO Terrell [facility] Routine general medical examination at a health care facility (Acute) Tobacco abuse (Acute 03/21/17) Suicide attempt by drug ingestion (Acute 03/10/16) quetiapine Poor diet (Acute 02/05/18) Obstructive sleep apnea syndrome (Acute 01/11/12) Dx'ed 2010 CPAP nightly Obesity, unspecified (Acute 01/10/12) Low HDL (under 40) (Acute 02/05/18) Exercise-induced asthma (Acute 02/19/14) 02/28/2014 PFTs reflect probable early asthma Exercise & hay are triggers Elevated blood pressure reading without diagnosis of hypertension (Acute 01/10/12) Chronic post-traumatic stress disorder (Acute 01/11/12) 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, 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 MDD, R/O MADALYN, Personality Disorder Callus of foot (Acute 06/02/15) Aspiration pneumonia (Acute) Acute respiratory failure with hypoxemia (Acute) Medical History Asthma-COPD overlap syndrome Chronic post-traumatic stress disorder Obesity (BMI 30-39.9) MENDY (obstructive sleep apnea) Surgical History H/O umbilical hernia repair Family History Father Alcohol abuse Essential hypertension Sister Diabetes Mother Essential hypertension Lung disease Cancer Maternal Grandmother Heart disease Asthma Social History Smoking/Tobacco Use Status: Current every day Tobacco Type: cigarettes Smoking packs per day: 1 Smoking cigarettes per day: 20.0 Years smoked: 35 Smoking pack-years: 35.00 Tobacco: How many years used: 35 Quit status: has quit before Second Hand Exposure: Yes (as a child) Counseling given: other Details: pt declines help, I want to do it on my own Smoking risk assessment performed?: Yes Alcohol Intake: current Alcohol Intake frequency: holidays/special occasions only Details: Reports he drinks 30 beers at once about twice a year Drug use: Never Substance use type: does not use Adopted: Yes Caregiver/Support person: No Household members: friend(s) Housing: apartment Number of Children: 3 number of grandchildren: 5 Communication Needs: None Education Level: high school Do you need help understanding health information?: Rarely current occupation: disabled Pets and animals: No Sexually active: No Do you think of yourself as: straight/heterosexual Current gender identity: male What is your relationship status?: never How often do you talk on the phone with friends or family?: three or more times per week How often do you get together with friends or relatives?: three or more times per week How often do you attend shinto or orthodoxy services?: decline to answer Do you belong to any clubs or organized social groups?: no Panel score (0-1 are the most socially isolated patients): 1 What type of physical activity do you participate in: none Krissy/Bahai: No preference Seatbelt use: never Helmet use: Yes Helmet use: always Drive intox or ride w/intox delivery route driver: No Working smoke detector in home: Yes Fire extinguisher in home: Yes Carbon monox detector in home: Yes Do you feel safe at home: Yes Do you feel safe in your relationship?: Yes Would you like helpful sources: No Additional Social history: Gets help through [facility] Exam Narrative Exam Narrative: Constitutional: Alert and oriented x3. Appears stated age. Obese body habitus. Head: Normocephalic, no trauma. Eyes: Pupils PERRL, Red reflex noted, EOM's intact. Eyelids symmetrical without lesions, discharge, or swelling. ENT: Bilateral TM's WNL, External ear normal to inspection, no mastoid TTP, swelling, or erythema, Nasal turbinates WNL, no nasal discharge. Normal dentition, Posterior pharynx WNL, no exudate. Chest: RRR, Normal S1, S2, distal pulses intact. Resp: Bilateral expiratory wheezes, dyspnea. Speaking in full sentences. Abdomen: Soft, non-distended, large body habitus. Musculoskeletal: Normal gait, 5/5 strength to all four extremities. Skin: No suspicious rashes or lesions. Capillary refill less than 2 sec. Neurologic: Cranial nerves II-XII intact. Alert and oriented x 3. Motor: No deficits noted. Sensory: Intact bilaterally all 4 extremities. Reflexes: DTR's intact bilaterally.. Hematologic/Lymphatic: No ecchymosis, no lymphadenopathy.
[2021-12-27 22:37] LABS: Abs Immature Grans 0.09 10^3/uL (0.0-0.06); Absolute Eosinophil Count 0.66 10^3/uL (0.0-0.7); Absolute Lymphocyte Count 6.52 10^3/uL (1.2-3.4); Absolute Monocyte Count 1.18 10^3/uL (0.1-0.8); Absolute Neutrophil Count 7.88 10^3/uL (1.2-6.7); Basophils % 0.6; HCT 44.7 % (40.0-50.0); Immature Grans % 0.5; Lymphocytes % 39.7; MCH 30.9 pg (27.0-33.0); MCHC 33.6 % (32.0-36.0); MCV 92 fL (80-95); MPV 9.3 fL (8.0-11.0); Monocytes % 7.2; Platelet Count 340 10^3/uL (130-400); RBC 4.85 10^6/uL (4.36-5.78); RDW 14.1 % (11.8-14.1); RDW-SD 47.8 fL; WBC 16.42 10^3/uL (4.4-10.8)
[2021-12-27] MEDS: Normal Saline Flush 10 ML SYR IVP (22:40)
[2021-12-27] MEDS: methylPREDNISolone SUCC 125 MG VIAL IVP (22:40)
[2021-12-27 22:44] LABS: Source Nasal/Nares
[2021-12-27 22:55] LABS: ALT 106 U/L (16-63); AST 66 U/L (15-37); Albumin 3.2 g/dL (3.4-5.0); Alkaline Phosphatase 88 U/L (46-116); BUN 23 mg/dL (7-18); Bilirubin, Total 0.4 mg/dL (0.2-1.0); Calcium 8.3 mg/dL (8.5-10.1); Chloride 105 mmol/L (98-107); Glucose 112 mg/dL (74-106); Potassium 3.6 mmol/L (3.5-5.1); Sodium 139 mmol/L (136-145); Total Protein 6.7 g/dL (6.4-8.2); Troponin I < 50 ng/L (<or=60)
[2021-12-27] MEDS: Albuterol/Ipratropium 3 ML UPD VIAL UPD (22:58)
[2021-12-27 23:04] LABS: Diff Comment Agrees w/ Instrument; RBC Morphology Normal
[2021-12-27 23:08] LABS: D-Dimer 431 ng/mlFEU (<500)
[2021-12-27 23:13] LABS: Magnesium 2.2 mg/dL (1.8-2.4); NT-proBNP 27 pg/mL (<300)
[2021-12-27 23:34] LABS: COVID-19 PCR Negative (Negative)
--- NOTE | 2021-12-27 23:56 | NUR.NOTE ---
Referral faxed to [facility] Pulmonology to f/u in 1-2 weeks for COPD exacerbation.Nursing Note:
[2021-12-28 00:10] VITALS: BP 142/95; PULSE 88; RESP 22; TEMP 36.3; O2SAT 97
--- NOTE | 2021-12-28 00:32 | DI.VRAD_ITS ---
PROCEDURE INFORMATION: Exam: XR Chest Exam date and time: 12/27/2021 10:30 PM Age: 46 years old Clinical indication: Other: SOB, HX copd, pui TECHNIQUE: Imaging protocol: Radiologic exam of the chest. Views: 1 view. COMPARISON: CR XR CHEST 2V PA LATERAL 04/23/2021 2:26 AM FINDINGS: Lungs: Normal pulmonary expansion. Question mild central vascular congestion. Alveolar opacity in the medial left lung base could represent atelectasis or pneumonia. Mild bilateral perihilar interstitial prominence could reflect mild perihilar interstitial pneumonitis or interstitial edema. Pleural spaces: No pleural effusion. No pneumothorax. Heart/Mediastinum: Heart size normal. No tracheal/mediastinal shift. Bones/joints: No acute osseous abnormalities are identified. Mild thoracic spondylosis. IMPRESSION: 1. Mild alveolar opacity in the medial left lung base suspicious for pneumonia versus atelectasis. 2. Bilateral mild perihilar interstitial changes could reflect bronchitis and mild interstitial pneumonitis versus interstitial edema. Dictated and Authenticated by: Ismael Pruitt MD. Ordering:KRISTA Hudson MD
[2021-12-28 05:39] VITALS: RESP 22
== END 2021-12-28 00:10 | disposition home or self-care (01) ==
PROVIDERS: Emergency Provider Registered Nurse Emergency; PCP Nurse Practitioner
DX: J44.1 Chronic obstructive pulmonary disease with (acute) exacerbation (principal); I10 Essential (primary) hypertension; F17.210 Nicotine dependence, cigarettes, uncomplicated; Z20.822 Contact with and (suspected) exposure to COVID-19
CPT/HCPCS: 36415; 80053; 87635; 93005; 94640; 96374; 99284; 71045; 83735; 83880; 84484; 85025; 85379; 93010; J2930; J7620

== ENCOUNTER 2022-01-12 02:51 | Outpatient (CLI) | payer MEDICARE, MEDICAID, SELFPAY | END 2022-01-12 02:52 | disposition home or self-care (01) | LOC: LBO 02:51 | PROVIDERS: PCP Nurse Practitioner; Visit Provider Nurse Practitioner ==

== ENCOUNTER 2022-06-22 04:46 | Outpatient (CLI) | payer MEDICARE, MEDICAID, SELFPAY ==
[2022-06-22 08:38] LABS: HGB 15.4 g/dL (13.5-17.5); MCH 29.8 pg (27.0-33.0); MCHC 32.8 % (32.0-36.0); MCV 91 fL (80-95); MPV 9.4 fL (8.0-11.0); Platelet Count 316 10^3/uL (130-400); RBC 5.16 10^6/uL (4.36-5.78); RDW 12.8 % (11.8-14.1); RDW-SD 42.9 fL; WBC 15.04 10^3/uL (4.4-10.8)
[2022-06-22 08:56] LABS: ALT 43 U/L (16-63); AST 32 U/L (15-37); Albumin 3.4 g/dL (3.4-5.0); Alkaline Phosphatase 96 U/L (46-116); Anion Gap 7.5 mmol/L (3-11); BUN 10 mg/dL (7-18); Bilirubin, Total 0.6 mg/dL (0.2-1.0); CO2 30.5 mmol/L (21.0-32.0); CREATININE 1.2 mg/dL (0.70-1.30); Calcium 8.8 mg/dL (8.5-10.1); Calculated LDL 71 mg/dL (<100); Chloride 102 mmol/L (98-107); Cholesterol 135 mg/dL (<200); Glucose 102 mg/dL (74-106); HDL Cholesterol 29 mg/dL (40-60); Potassium 3.6 mmol/L (3.5-5.1); Sodium 140 mmol/L (136-145); Total Protein 7.4 g/dL (6.4-8.2); Triglyceride 179 mg/dL (<150)
[2022-06-22 09:27] LABS: Hemoglobin A1C 6.2 % (<5.7)
== END 2022-06-22 04:47 | disposition home or self-care (01) ==
LOC: LBO 04:47
PROVIDERS: PCP Nurse Practitioner; Visit Provider Nurse Practitioner
DX: I10 Essential (primary) hypertension (principal); R73.03 Prediabetes; E78.6 Lipoprotein deficiency; E66.01 Morbid (severe) obesity due to excess calories
CPT/HCPCS: 36415; 80053; 80061; 85027; 83036

== ENCOUNTER 2022-06-24 15:47 | Outpatient (REF) | payer MEDICARE, MEDICAID, SELFPAY ==
[2022-06-26 01:18] LABS: Influenza A RNA Result Negative (Negative); Influenza B RNA Result Negative (Negative); RSV RNA Result Negative (Negative)
[2022-06-26 01:33] LABS: COVID-19 RT-PCR UVMMC Result Positive (Negative)
== END 2022-06-24 15:48 | disposition home or self-care (01) ==
LOC: LBN 15:47
PROVIDERS: PCP Nurse Practitioner; Visit Provider Nurse Practitioner Family
DX: R05.8 Other specified cough (principal); J18.9 Pneumonia, unspecified organism; Z20.822 Contact with and (suspected) exposure to COVID-19
CPT/HCPCS: 87631; U0003

== ENCOUNTER 2022-07-06 08:37 | Outpatient (CLI) | payer MEDICARE, MEDICAID, SELFPAY ==
--- NOTE | 2022-07-06 08:15 | DI.RAD_ITS ---
Exam(s) XR KNEE LT 3V AP,LAT,JOSE EXAM: XR KNEE LT 3V AP,LAT,JOSE CLINICAL HISTORY: left knee pain. TECHNIQUE: 2D digital imaging was performed. COMPARISON: No exams were available for comparison FINDINGS: 3 views No evidence of fracture or obvious joint effusion. No joint space narrowing on the weight-bearing vi ew but there are some degenerative changes in the tibial spines and lateral compartment. Some degene rative change also noted in the patellofemoral compartment. IMPRESSION: Some degenerative changes but without joint space narrowing evident on the weight-bearing view. No o bvious joint effusion. No osseous lesions.. DATA REPOSITORY: RADIATION DOSE DELIVERED:
== END 2022-07-06 08:38 | disposition home or self-care (01) ==
LOC: DIORS 08:37
PROVIDERS: PCP Nurse Practitioner; Referring Provider Nurse Practitioner; Visit Provider Student in an Organized Health Care Education/Training Program
DX: M25.562 Pain in left knee (principal)
CPT/HCPCS: 73562; 99203; 99213

== ENCOUNTER 2023-02-01 07:36 | Outpatient (CLI) | payer MEDICARE, MEDICAID, SELFPAY ==
[2023-02-01 07:24] LABS: HCT 46.7 % (40.0-50.0); HGB 15.5 g/dL (13.5-17.5); MCH 29.9 pg (27.0-33.0); MCHC 33.2 % (32.0-36.0); MCV 90 fL (80-95); MPV 9.2 fL (8.0-11.0); Platelet Count 310 10^3/uL (130-400); RBC 5.18 10^6/uL (4.36-5.78); RDW 13.4 % (11.8-14.1); RDW-SD 44.7 fL; WBC 12.29 10^3/uL (4.4-10.8)
[2023-02-01 07:39] LABS: Absolute Eosinophil Count 1.47 10^3/uL (0.0-0.7); Absolute Lymphocyte Count 3.56 10^3/uL (1.2-3.4); Absolute Monocyte Count 0.86 10^3/uL (0.1-0.8); Absolute Neutrophil Count 6.39 10^3/uL (1.2-6.7); Atypical Lymphocytes % 6; Diff Comment Manual Differential; RBC Morphology Normal
[2023-02-01 08:01] LABS: Hemoglobin A1C 5.9 % (<5.7)
[2023-02-01 08:24] LABS: ALT 45 U/L (16-63); AST 33 U/L (15-37); Albumin 3.3 g/dL (3.4-5.0); Alkaline Phosphatase 92 U/L (46-116); Anion Gap 8.6 mmol/L (3-11); BUN 12 mg/dL (7-18); Bilirubin, Total 0.6 mg/dL (0.2-1.0); CO2 28.4 mmol/L (21.0-32.0); Calcium 8.6 mg/dL (8.5-10.1); Calculated LDL 114 mg/dL (<100); Chloride 109 mmol/L (98-107); Cholesterol 159 mg/dL (<200); Estimated GFR 92.26 (mL/min/1.73m2); Glucose 115 mg/dL (74-106); HDL Cholesterol 30 mg/dL (40-60); Potassium 3.8 mmol/L (3.5-5.1); Sodium 146 mmol/L (136-145); Total Protein 7.1 g/dL (6.4-8.2); Triglyceride 77 mg/dL (<150)
== END 2023-02-01 07:37 | disposition home or self-care (01) ==
LOC: LBO 07:37
PROVIDERS: PCP Nurse Practitioner; Visit Provider Nurse Practitioner
DX: I10 Essential (primary) hypertension (principal); E78.5 Hyperlipidemia, unspecified; E78.6 Lipoprotein deficiency; R73.03 Prediabetes; J45.909 Unspecified asthma, uncomplicated
CPT/HCPCS: 36415; 80053; 80061; 83036; 85025

== ENCOUNTER → 2023-02-06 14:04 | Outpatient (BNVA) | payer MEDICARE, MEDICAID, SELFPAY | PROVIDERS: PCP Nurse Practitioner; Referring Provider Nurse Practitioner; Visit Provider Surgery | DX: K42.9 Umbilical hernia without obstruction or gangrene (principal); L72.3 Sebaceous cyst; R01.1 Cardiac murmur, unspecified | CPT/HCPCS: 99203; 99214 ==

== ENCOUNTER → 2023-02-13 14:15 | Outpatient (BNVA) | payer MEDICARE, MEDICAID, SELFPAY | PROVIDERS: PCP Nurse Practitioner; Referring Provider Nurse Practitioner; Visit Provider Surgery | DX: L72.3 Sebaceous cyst (principal) | CPT/HCPCS: 11403 ==

== ENCOUNTER → 2023-02-16 10:06 | Outpatient (CLI) | payer MEDICARE, MEDICAID, SELFPAY ==
--- NOTE | 2023-02-16 10:00 | DI.US_ITS ---
APPROVED REPORT EXAM: Comprehensive 2D, Doppler, and color-flow Echocardiogram Patient Location: Out-Patient Drawer In Dobby Loom: Kalen Sky RDCS (AE) Indications: new murmur Other Information Study Quality: Adequate Conclusion Technically difficult study Left ventricle appears borderline dilated. Ejection fraction is 50 to 55%. Diastolic septal flatten ing suggests right ventricular pressure overload Right ventricle appears normal in size and function Both atria are normal in size Aortic valve is mildly sclerotic, probably trileaflet, without stenosis or regurgitation Right ventricular systolic pressure could not be assessed Wall motion Left Ventricle Left ventricle is borderline dilated. Left ventricular systolic function is borderline. There is norm al left ventricular wall thickness. Flattened septum consistent with right ventricular pressure overl oad. There is no ventricular septal defect visualized. LVEF is 50-55%. Right Ventricle The right ventricle is normal size. The right ventricular systolic function is normal. Unable to asse ss PA pressure. Atria The left atrium size is normal. The right atrium size is normal. The interatrial septum is intact wit h no evidence for an atrial septal defect. Aortic Valve The aortic valve is mildly sclerotic Aortic valve is probably trileaflet. No hemodynamically signific ant valvular aortic stenosis. No aortic regurgitation is present. Mitral Valve The mitral valve is normal in structure. No evidence of mitral valve stenosis. There is no mitral steven ve regurgitation noted. Tricuspid Valve The tricuspid valve is normal in structure. There is no tricuspid valve stenosis. Trace tricuspid reg urgitation. Pulmonic Valve The pulmonary valve is normal in structure. There is no pulmonic valvular stenosis. There is no pulmo melvin valvular regurgitation. Great Vessels The aortic root is normal in size. The ascending aorta is normal in size. Aortic arch is normal in ca liber. IVC is normal in size and collapses >50% with inspiration. Pericardium There is no pericardial effusion. 2D Dimensions IVSD d PLAX 0.68 cm M: 0.6-1.2 Ao Root d 3.24 cm M: 3.1 - 3.7 LVPW d PLAX 0.97 cm M: 0.6 - 1.2 Ao Asc Diam d 2.91 cm M: 2.6 - 3.4 LVID d PLAX 5.57 cm M: 4.2 - 5.8 LVDs 4.36 cm M: 2.5 - 4.0 LV EF Teichholz 43.4 % FS 21.71 % LV EDV (Teich) 151.7 mL LV ESV (Teich) 85.9 mL Stroke Vol Index (Teich) 26.68 M-Mode TAPSE 2.67 cm (M/F) >1.7 Auto EF LV EDV A4C 140.8 mL LV EDV A2C 180.0 mL LV EDV BP 158.7 mL LV ESV A4C 80.1 mL LV ESV A2C 102.3 mL LV ESV BP 91.6 mL LVEF(%) A4C 43.1 % LVEF(%) A2C 43.2 % LVEF(%) BP 42.3 % LV SV A4C 60.7 ml LV SV A2C 77.7 ml LV SV BP 67.1 ml LV CO A4C 5.2 L/min LV CO A2C 5.4 L/min LV CO BP 5.3 L/min HR A4C 85.72 BPM HR A2C 68.97 BPM LV EDV Index (BP) LA Volume LA Length A4C 5.7 cm LA Length A2C LA Area A4C s 18.02 cm2 LA Area A2C s LA Vol A4C A-L 48.29 mL LA Vol A2C A-L LA Vol Biplane A-L LA Vol A4C MOD 45.5 mL LA Vol A2C MOD LA Vol BP MOD RA Volume RA Area A4C 10.9 cm2 RA ESV A4C (A-L) 22.1mL RA Vol/BSA A4C A-L RA Length A4C 4.5 cm RA ESV A4C (MOD) 21.5mL LV Diastology MV E' medial 0.114 (>0.07 m/s) MV E Vmax 0.95 (0.4-1.3 m/s) MV E/E' MED 8.36 (<14) MV A Vmax 0.85 (0.4-1.3 m/s) MV E' lateral 0.115 (>0.1 m/s) E/A Ratio 1.1 MV E/E' LAT 8.26 (<14) MV E' Average 0.115 m/s MV E/E'(average) 8.31 Aortic Valve AoV Vmax 2.14 m/s LVOT Vmax 1.30 m/s AoV Peak Grad 18.4 mmHg LVOT Peak Grad 6.8 mmHg AoV Area (Vmax) 1.87 cm2 LVOT VTI 0.263 m AoV VTI 0.380 m LVOT Mean Grad 4.2 mmHg AoV Mean Patrick. 1.37 m/s LVOT SV 80.96 mL AoV Mean Grad 9.0 mmHg LVOT Diam s 1.95 cm AoV Area (VTI) 2.13 cm2 Velocity Ratio 0.61 Mitral Valve MV DT 187 (160-240 msec) Pulmonary Valve PV Vmax 1.03 (0.5-1.5 m/s) RVOT Vmax 0.82 m/s PV Peak Grad 4.2 mmHg RVOT Peak Gr. 2.7 mmHg PV Mean Patrick 0.67 m/s RVOT VTI 0.160 m PV Mean Grad 2.2 mmHg RVOT Mean Gr. 1.4 mmHg
== END ==
PROVIDERS: PCP Nurse Practitioner; Visit Provider Surgery
DX: R01.1 Cardiac murmur, unspecified (principal)
CPT/HCPCS: 93306

== ENCOUNTER → 2023-02-24 08:15 | Outpatient (BNVA) | payer MEDICARE, MEDICAID, SELFPAY | PROVIDERS: PCP Nurse Practitioner; Referring Provider Nurse Practitioner; Visit Provider Surgery | DX: K42.9 Umbilical hernia without obstruction or gangrene (principal); Z87.2 Personal history of diseases of the skin and subcutaneous tissue; Z48.02 Encounter for removal of sutures | CPT/HCPCS: 99212 ==

== ENCOUNTER 2023-04-18 09:45 | Emergency (ER) | payer MEDICARE, MEDICAID, SELFPAY ==
[2023-04-18 09:50] VITALS: BP 179/128; PULSE 84; RESP 18; TEMP 36.8; O2SAT 99
--- NOTE | 2023-04-18 10:15 | ED.GENADUL_ITS ---
Discharge Plan Disposition Patient Disposition: Home Condition: Good Discharge Details Clinical Impression: Shingles Primary Care Provider: Marium Shetty ED Provider: Manuel Moe Home Meds and New Rx's Prescriptions: New valacyclovir 1 gram tablet 1,000 mg PO TID 10 Days Qty: 30 0RF Continued albuterol sulfate [Ventolin HFA] 90 mcg/actuation HFA aerosol inhaler See Rx Instructions .ROUTE .COMPLEX Qty: 18 12RF Dose Instruction: INHALE 2 PUFFS EVERY 4 HOURS NEEDED Rx Instructions: INHALE 2 PUFFS EVERY 4 HOURS NEEDED Discharge Instructions Instructions: Valacyclovir (By mouth), Shingles (ED) Additional Instructions: You were seen in the emergency department for your developing a rash to your left anterior chest, it appears to be developing shingles. It is painful and itchy which is a hallmark especially with the unilateral or one-sided distribution. Please corn picker the valacyclovir that I sent to [facility] here in [place]. Take this as directed for the next 7 days, if you still have the lesions and pain you may need another couple days but you can follow-up with your primary care provider hopefully they can extend your prescription over the phone. Please use therapeutic dosing of Tylenol (acetamenophen) & Advil (ibuprofen) in an alternating fashion as follows: Take 1000mg of Tylenol every 6 hours without missing doses- that is 4 times per day. Assisted in between the Tylenol dosings, take 400-600mg of Advil also on a 6 hour schedule, that is also 4 times per day. The daily maximum dosing of Tylenol is 4000mg, and the daily maximum dosing of Advil is 2400mg. This is safe to do for weeks. Please note that some common cold medications & prescription pain medications may contain acetamenophen and you need to read OTC drug labels and factor that in to maximum daily dosings. Please return to the emergency department for any facial paralysis or lesions developing on your ear or eye, return for severe increase in redness and any drainage of pus. Do not itch the lesions and keep covered as they are contagious. Referrals: Marium Shetty, [employer] [Primary Care Provider] - Medical Decision Making This dictation utilizes [id number] dictation software and may contain unedited grammatical errors. 47 y/o M presents to ED today with a chief complaint of vesicular rash developing since last night, to L neck and chest. Onset and characteristics include patchy vesicular rash onset last night and more lesions this morning. Patient has relevant history of chicken pox as a child. Family and social history: noncontributory. Pertinent exam findings / vital signs include patchy vesicular lesions to L upper chest/neck, vesicular heads to lesions, no signs of abscess, nontoxic vitals. Differential / pathologies of concern include shingles, cellulitis, superficial fungal infection. Diagnostic studies of: -none. Interventions of: -Rx of valacyclovir. ED Course: No acute complications during ED visit, uncomplicated illness without systemic symptoms. Findings not consistent with [place], severe cellulitis or abscess, classic presentation of shingles. Disposition of Shingles. Assessment/Plan: Counseled the patient on contagious nature of his shingles and Rx'd valacyclovir to [facility] in [place], recommend therapeutic dosing of Tylenol and ibuprofen and following up with his primary care provider with strict return criteria for any facial involvement or developing severe redness with fever and purulent drainage. Patient verbalized understanding of the plan and return to ED criteria and engaged in shared decision making. Medical Records Medical records reviewed: Yes I reviewed the patient's medical records. HPI General Date/Time Provider Initiated Documentation: 04/18/23 10:02 . HPI Narrative: 47 year-old male presents to ED today by POV/ambulating with a chief complaint of painful itchy patchy rash developing on his L neck and shoulder/upper pec, with onset last night of one lesion, with more developing today. Quality described as painful and itchy, no radiation to known insect stings, other rash, R-sided rash, fever, chills, nausea/vomiting. Severity is described as 3-4/10. Palliating factors include nothing specific attempted. Provoking factors include states he looked at a vehicle yesterday, and the upholstery was moldy. Patient not anticoagulated. Related Data Home Medications Medication Instructions Recorded Confirmed albuterol sulfate 90 mcg/actuation See Rx Instructions .Route 02/28/23 04/18/23 aerosol inhaler (Ventolin HFA) .COMPLEX #18 grams valacyclovir 1 gram tablet 1,000 mg PO TID shingles 10 days 04/18/23 #30 tabs Previous Rx's Medication Instructions Recorded albuterol sulfate 90 mcg/actuation See Rx Instructions .Route 02/28/23 aerosol inhaler (Ventolin HFA) .COMPLEX #18 grams valacyclovir 1 gram tablet 1,000 mg PO TID shingles 10 days 04/18/23 #30 tabs Allergies Allergy/AdvReac Type Severity Reaction Status Date / Time sertraline Allergy Unknown PARADOXICAL Verified 04/18/23 09:53 REACTION General Stated Complaint: RashLesion VIDA: 4 Review of Systems All systems reviewed & are unremarkable except as noted in HPI and below PFSH All Active Problems (Updated 04/18/23 @ 10:16 by ANJANA Cheek) Shingles (Acute) Sebaceous cyst (Acute) Newly recognized heart murmur (Acute) Internal derangement of left knee (Acute) Medical non-compliance (Acute) Noncompliance with CPAP treatment (Acute) Pre-diabetes (Acute) Pulmonary embolism (Chronic 03/21/16) Obesity, morbid, BMI 50 or higher (Acute) Umbilical hernia (Acute) ARDS survivor (Acute) Pneumonia (Acute) COPD exacerbation (Acute) Atypical pneumonia (Acute) Bipolar affective disorder (Acute 03/21/16) Nicotine dependence (Acute 01/11/12) 3/4-1 PPD Elevated WBC count (Acute) Elevated LFTs (Acute) Noncompliance with medication regimen (Acute) Noncompliance with CPAP treatment (Acute) Essential hypertension (Acute) Depressive disorder (Chronic 01/10/12) [facility] seen by Reji whipple 08/14/13, 11/20/13,02/18/14 10/28/19 Ov with EMETERIO Terrell [facility] Routine general medical examination at a health care facility (Acute) Tobacco abuse (Acute 03/21/17) Suicide attempt by drug ingestion (Acute 03/10/16) quetiapine Poor diet (Acute 02/05/18) Obstructive sleep apnea syndrome (Acute 01/11/12) Dx'ed 2010 CPAP nightly Obesity, unspecified (Acute 01/10/12) Low HDL (under 40) (Acute 02/05/18) Exercise-induced asthma (Acute 02/19/14) 02/28/2014 PFTs reflect probable early asthma Exercise & hay are triggers Elevated blood pressure reading without diagnosis of hypertension (Acute 01/10/12) Chronic post-traumatic stress disorder (Acute 01/11/12) 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, 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 MDD, R/O MADALYN, Personality Disorder Callus of foot (Acute 06/02/15) Aspiration pneumonia (Acute) Acute respiratory failure with hypoxemia (Acute) Medical History (Updated 04/18/23 @ 10:16 by ANJANA Cheek) Asthma-COPD overlap syndrome Obesity (BMI 30-39.9) MENDY (obstructive sleep apnea) Chronic post-traumatic stress disorder Surgical History (Updated 02/24/23 @ 08:35 by Isabella Tejeda MD) H/O excision of epidermal inclusion cyst H/O umbilical hernia repair Family History Father Alcohol abuse Essential hypertension Sister Diabetes Mother Essential hypertension Lung disease Cancer Maternal Grandmother Heart disease Asthma Social History Smoking/Tobacco Use Status: Current every day Tobacco Type: cigarettes Smoking packs per day: 1 Smoking cigarettes per day: 20.0 Years smoked: 35 Smoking pack- years: 35.00 Tobacco: How many years used: 35 Quit status: has quit before Second Hand Exposure: Yes (as a child) Counseling given: other Details: pt declines help, I want to do it on my own Smoking risk assessment performed?: Yes Alcohol Intake: current Alcohol Intake frequency: holidays/special occasions only Details: Reports he drinks 30 beers at once about twice a year Drug use: Never Substance use type: does not use Adopted: Yes Caregiver/Support person: No Household members: friend(s) Housing: apartment Number of Children: 3 number of grandchildren: 5 Communication Needs: None Education Level: high school Do you need help understanding health information?: Rarely current occupation: disabled Pets and animals: No Sexually active: No Do you think of yourself as: straight/heterosexual Current gender identity: male What is your relationship status?: never How often do you talk on the phone with friends or family?: three or more times per week How often do you get together with friends or relatives?: three or more times per week How often do you attend yazidi or church services?: decline to answer Do you belong to any clubs or organized social groups?: no Panel score (0-1 are the most socially isolated patients): 1 What type of physical activity do you participate in: none Krissy/Shinto: No preference Seatbelt use: never Helmet use: Yes Helmet use: always Drive 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 SKIN: Warm, pink, dry, patchy vesicular rash to the left neck and upper torso involving the upper third of the pectoralis area, there is a erythematous macular area around it appears to be developing vesicular lesions., No right- sided rash, no purulent drainage or fluctuance. HEAD: Normocephalic, atraumatic, normal hair distribution for gender/age. EYES: Pupils PERRLA, EOMs intact without nystagmus, normal conjunctiva, no exudates on lids/lashes. ENT: Nares patent, no circumoral cyanosis, no facial swelling NECK: Supple, trachea midline, painless cervical ROM. LUNGS/CHEST: Non-labored respirations, normal A/P diameter, symmetrical expansi on, no chest wall deformity HEART (CV/PV): Regular rate, R radial pulse 2+, no peripheral edema, no JVD. ABDOMEN: Soft, non-distended, no guarding. MSK: Normal ROM, no swelling/deformity to bilateral UEs or LEs, moving all extremities without weakness, no cyanosis, spine midline without tenderness, normal curvature. NEURO: Mental Status AAOx4 - alert to person, place, time, events No facial droop, no forehead involvement. Motor: No focal weakness - strength 5/5 in bilateral UEs and LEs, proximal and distal, symmetric. Sensory: sensation intact to light touch globally. Gait normal: patient ambulated without ataxia into ED room. PSYCH: euthymic, cooperative, pleasant, appropriate speech Course Vital Signs Vital signs: Vital Signs Temperature 36.8 C 04/18/23 09:50 Pulse 84 04/18/23 09:50 Respiratory Rate 18 04/18/23 09:50 Blood Pressure 179/128 H 04/18/23 09:50 Pulse Oximetry 99 10/31/23 09:50 Temperature 36.8 C 04/18/23 09:50 Temperature Source Skin 04/18/23 09:50 Pulse 84 04/18/23 09:50 Respiratory Rate 18 04/18/23 09:50 Respiratory Effort Normal 04/18/23 09:53 Blood Pressure 179/128 H 04/18/23 09:50 Blood Pressure Position Sitting 04/18/23 09:50 Pulse Oximetry 99 04/18/23 09:50 Oxygen Delivery Method Room Air 04/18/23 09:50 Oxygen Flow Rate 0 04/18/23 09:50 Pain Level 8 04/18/23 09:50
== END 2023-04-18 11:33 | disposition home or self-care (01) ==
LOC: ER 10:33
PROVIDERS: Emergency Provider Physician Assistant; PCP Nurse Practitioner
DX: B02.9 Zoster without complications; I10 Essential (primary) hypertension; J44.9 Chronic obstructive pulmonary disease, unspecified; Z79.899 Other long term (current) drug therapy; Z88.8 Allergy status to other drugs, medicaments and biological substances
CPT/HCPCS: 99282; 99283

== ENCOUNTER 2023-06-19 09:48 | Emergency (ER) | payer MEDICARE, MEDICAID, SELFPAY ==
[2023-06-19] VITALS (7 sets, daily range): BP systolic 145–181; BP diastolic 92–116; PULSE 74–81; RESP 16–20; TEMP 36.5–36.6; O2SAT 96–99
--- NOTE | 2023-06-19 09:51 | W.ED.GENAD ---
Discharge Plan Disposition Patient Disposition: Home Discharge Details Clinical Impression: Elevated blood pressure reading Primary Care Provider: Marium Shetty ED Provider: Ismael Higginbotham Home Meds and New Rx's Prescriptions: New doxycycline hyclate 100 mg capsule 100 mg PO BID Qty: 10 0RF prednisone 50 mg tablet 50 mg PO DAILY Qty: 4 0RF Rx Instructions: Please begin taking tomorrow as you have received steroids in the emergency department Continued albuterol sulfate [Ventolin HFA] 90 mcg/actuation HFA aerosol inhaler See Rx Instructions .ROUTE .COMPLEX Qty: 18 12RF Dose Instruction: INHALE 2 PUFFS EVERY 4 HOURS NEEDED Rx Instructions: INHALE 2 PUFFS EVERY 4 HOURS NEEDED Discharge Instructions Instructions: COPD (Chronic Obstructive Pulmonary Disease) (ED) Additional Instructions: You were seen in the emergency department for your shortness of breath and congestion. You likely have an exacerbation of your COPD for which you you are receiving antibiotics and a steroid. Please return to the emergency department if you develop worsening shortness of breath. As discussed, please follow-up with your primary care provider as your blood pressure was slightly elevated in the emergency department. Please return if you develop worsening chest tightness or have any other concerns. Your left knee x-ray showed that you have a small amount of fluid around your left knee. If you develop a fever worsening redness or swelling please return to the emergency department.You do not have COVID RSV nor the flu. Discharge Data Discharge Date/Time-TO BE ENTERED AT DEPARTURE: 06/19/23 14:07 HPI General Date/Time Provider Initiated Documentation: 06/19/23 09:51. HPI Narrative: MDM This is a 47-year-old normothermic and not tachycardic male with chest pain shortness of breath lower extremity swelling concerning for ACS, acute CHF, COPD exacerbation. Patient has risk factors for ACS so will obtain ECG and 2 sets of troponins. Will also complete limited bedside echocardiogram given bilateral lower extremity edema and shortness of breath worsening when laying flat. I considered pulmonary embolism as patient has history of the same based on productive cough and no hemoptysis nor any calf tenderness will obtain D-dimer and use years criteria cut off of 1000. No tearing quality to suggest aortic dissection. No pain out of proportion to suggest necrotizing soft tissue infection. Patient does have abnormal lung sounds so pneumonia is also a possibility for which patient will 2 view chest x-ray. Will swab for influenza flu and RSV. No history of recent emesis to suggest increased risk for esophageal rupture. I have a low suspicion for tamponade given that the patient is not a dialysis patient and is not hypotensive. Good range of motion in neck so doubt retropharyngeal abscess. Uvula midline, not consistent with peritonsillar abscess. Patient is nontoxic so doubt bacterial tracheitis. Concerning the patient's left knee swelling he is able to straight leg raise so doubt quadriceps tendon injury. No significant laxity on valgus nor varus stress testing so doubt ligamentous injury. No history of malignancy so doubt pathological fracture. No signs of knee dislocation. No lacerations to suggest benefit from tetanus update. No significant swelling to suggest septic joint. Patient does have a history of CPAP use but he reports that he is not adherent. Given shortness of breath he may certainly have a component of pulmonary hypertension and may benefit from repeat outpatient echocardiogram versus right heart catheterization. Given productive cough if ultrasound and chest x-ray do not show volume overload will treat for COPD exacerbation with doxycycline and prednisone. No mastoid tenderness to suggest mastoiditis. No head strike nor signs of hemotympanum to suggest intracranial hemorrhage. No signs of acute otitis media. Warm well-perfused left lower extremity so doubt aortic dissection or vascular catastrophe. Will swab for influenza RSV and flu. 10:52 AM CBC shows leukocytosis similar to prior. No anemia. No thrombocytopenia. Reassuring bedside echo not consistent with acute CHF. 11:25 AM Negative troponin. Reassuring unremarkable proBNP. Comprehensive metabolic panel showing very mild hyperglycemia but no anion gap. Normal bicarbonate??not consistent with DKA. No BRIELLE. D-dimer less than 1000 ng/mL FEU. Based on years criteria will defer CTA for PE given no hemoptysis and PE is not the most likely diagnosis. Negative COVID influenza and RSV. 1:48 PM Repeat troponin negative. I met with the patient and explained his reassuring evaluation in the ED. Given his abnormal lung sounds and his history of reactive airway disease we will treat with doxycycline and prednisone for acute COPD exacerbation. Patient did have an elevated blood pressure in the ED for which I advised outpatient primary care follow-up. I advised ED return for chest pain syncope or inability to tolerate p.o. He understood his return indications and he was discharged with an empiric trial of expectant outpatient management. Knee x-ray showed small effusion which certainly could be the cause of the patient's complaint of increased swelling. Will treat with an Shadi wrap to left lower extremity with weightbearing as tolerated. I also advised elevation. HEART SCORE Chest pain Diagnostic Protocol: [-History/Physical/Gestalt: Slightly Suspicious (0)] [-EKG: Normal and/or unchanged from prior EKG (0)] [- AGE: 45-65 (+1)] [- RISK FACTORS: 3 or more risk factors and/or known CAD (+2)] [-TROPONIN: <= normal limit (0)] - TOTAL SCORE: 3 - Risk Factors: DM, current or recent smoker, HTN, HLD, family hx of CAD, obesity - INTERPRETATION: With a total score of 3 or less, risk of major cardiac event within six weeks 1.7%, likely lower with two negative troponins. [I explained to the patient that the risk of subsequent major cardiac event within 1 month is not 0, however risk predicted to be less than 2%. Patient verbalized understanding, accepts this risk and shared and the decision for discharge with PCP follow-up for further evaluation and management. They understand to return to the ED immediately with any worsening symptoms, new symptoms or other concerns.] Chronic conditions affecting the care of the patient: Obesity prior history of PE History obtained from an outside historian: N/A External record review: [facility] [place] EMR [Diagnostic interpretations performed by me: Per my independent interpretation chest x-ray shows: No acute cardiopulmonary process preliminary ED interpretation Per my independent interpretation EKG shows: Normal sinus rhythm at a rate of 76 with interventricular conduction delay and a QRS of 101 ms. Normal axis. MA and QTc within normal limits. Mild upsloping ST segment elevations diffusely. No ST segment depressions. Compared to prior dated last year mild upsloping ST segment elevations are persistent. QRS is similar. No acute injury pattern. No significant change compared to prior. Medications: Doxycycline prednisone Social determinants of health affecting disposition: N/A Management discussed with: N/A Treatment/interventions considered: N/A Response to therapies provided: N/A HPI This is a 47-year-old male with history of COPD and daily tobacco use arriving to the emergency department in the setting of chest pain shortness of breath and a productive cough for the past 2 weeks. Patient reports that he has intermittent tightness in his chest when coughing. It does not radiate. He reports that he has noticed worsening lower extremity swelling over the past several weeks and has had worsening shortness of breath on lying flat. He has also noticed nasal congestion and he has had a more productive cough. He denies fevers and chills. He reports a remote chainsaw injury to his left knee and worsening left knee pain. He has not been adherent with his CPAP. He has no history of coronary artery disease. No family history of premature coronary artery disease in his siblings or parents. Patient denies history of hyperlipidemia and diabetes but does have a history of hypertension. He is a daily tobacco user but denies routine ethanol and illicits. He did not hit his knee recently. He has intermittently had a sore throat. Intermittent left ear pain. No trauma to the left ear. Exam General: Chronically ill-appearing in no acute distress speaking in complete sentences. Head: Normocephalic, atraumatic. Eye: Extraocular eye movements intact. No conjunctival injection. No scleral icterus. Ear, nose, mouth, throat: Grossly normal inspection. Normal voice, handling secretions normally. No significant posterior oropharynx erythema. No mastoid tenderness bilaterally. Uvula midline. Bilateral TMs clear. Neck: Trachea midline. Good range of motion in neck Cardiovascular: Well-perfused distal extremities. Regular rate and rhythm Respiratory: Nonlabored respiration. Mildly prolonged expiratory phase bilaterally. Coarse right-sided breath sounds. Gastrointestinal: Moderately distended abdomen. Soft nontender Musculoskeletal: Mild bilateral 1+ pitting lower extremity edema. Moving all 4 extremities spontaneously. Mild left knee swelling. No significant erythema. Patient is able to straight leg raise. Patient has no significant laxity to valgus or varus stress testing. Left foot warm and well-perfused. Skin: Normal for age and race, grossly normal temperature and turgor. No acute rash. Neurologic: Alert and appropriate, no apparent acute deficits. Psychiatric: Mood and manner are appropriate. Grooming and personal hygiene are appropriate. Related Data Home Medications Medication Instructions Recorded Confirmed albuterol sulfate 90 mcg/actuation See Rx Instructions .Route 02/28/23 06/19/23 aerosol inhaler (Ventolin HFA) .COMPLEX #18 grams doxycycline hyclate 100 mg capsule 100 mg PO BID #10 caps 06/19/23 prednisone 50 mg tablet 50 mg PO DAILY #4 tabs 01/01/24 Previous Rx's Medication Instructions Recorded albuterol sulfate 90 mcg/actuation See Rx Instructions .Route 02/28/23 aerosol inhaler (Ventolin HFA) .COMPLEX #18 grams doxycycline hyclate 100 mg capsule 100 mg PO BID #10 caps 06/19/23 prednisone 50 mg tablet 50 mg PO DAILY #4 tabs 06/19/23 Allergies Allergy/AdvReac Type Severity Reaction Status Date / Time sertraline Allergy Unknown PARADOXICAL Verified 04/18/23 09:53 REACTION serequi Allergy Severe Other (See Uncoded 06/19/23 10:18 Comment) General VIDA: 4 PFSH All Active Problems (Updated 06/19/23 @ 13:29 by Ismael Higginbotham MD) Elevated blood pressure reading (Acute) Sebaceous cyst (Acute) Newly recognized heart murmur (Acute) Internal derangement of left knee (Acute) Medical non-compliance (Acute) Noncompliance with CPAP treatment (Acute) Pre-diabetes (Acute) Pulmonary embolism (Chronic 03/21/16) Obesity, morbid, BMI 50 or higher (Acute) Umbilical hernia (Acute) ARDS survivor (Acute) Pneumonia (Acute) COPD exacerbation (Acute) Atypical pneumonia (Acute) Bipolar affective disorder (Acute 03/21/16) Nicotine dependence (Acute 01/11/12) 3/4-1 PPD Elevated WBC count (Acute) Elevated LFTs (Acute) Noncompliance with medication regimen (Acute) Noncompliance with CPAP treatment (Acute) Essential hypertension (Acute) Depressive disorder (Chronic 01/10/12) [facility] seen by Reji whipple 08/14/13, 11/20/13,02/18/14 10/28/19 Ov with EMETERIO Terrell [facility] Routine general medical examination at a health care facility (Acute) Tobacco abuse (Acute 03/21/17) Suicide attempt by drug ingestion (Acute 03/10/16) quetiapine Poor diet (Acute 02/05/18) Obstructive sleep apnea syndrome (Acute 01/11/12) Dx'ed 2010 CPAP nightly Obesity, unspecified (Acute 01/10/12) Low HDL (under 40) (Acute 02/05/18) Exercise-induced asthma (Acute 02/19/14) 02/28/2014 PFTs reflect probable early asthma Exercise & hay are triggers Elevated blood pressure reading without diagnosis of hypertension (Acute 07/24/12) Chronic post-traumatic stress disorder (Acute 01/11/12) 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, 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 MDD, R/O MADALYN, Personality Disorder Callus of foot (Acute 06/02/15) Aspiration pneumonia (Acute) Acute respiratory failure with hypoxemia (Acute) Medical History (Updated 06/19/23 @ 13:29 by Ismael Higginbotham MD) Asthma-COPD overlap syndrome Obesity (BMI 30-39.9) MENDY (obstructive sleep apnea) Chronic post-traumatic stress disorder Surgical History (Updated 02/24/23 @ 08:35 by Isabella Tejeda MD) H/O excision of epidermal inclusion cyst H/O umbilical hernia repair Family History Father Alcohol abuse Essential hypertension Sister Diabetes Mother Essential hypertension Lung disease Cancer Maternal Grandmother Heart disease Asthma Social History Smoking/Tobacco Use Status: Current every day Tobacco Type: cigarettes Smoking packs per day: 1 Smoking cigarettes per day: 20.0 Years smoked: 37 Smoking pack-years: 37.00 Tobacco: How many years used: 35 Quit status: has quit before Second Hand Exposure: Yes (as a child) Counseling given: other Details: pt declines help, I want to do it on my own Smoking risk assessment performed?: Yes Alcohol Intake: current Alcohol Intake frequency: holidays/special occasions only Details: Reports he drinks 30 beers at once about twice a year Drug use: Never Substance use type: does not use Adopted: Yes Caregiver/Support person: No Household members: friend(s) Housing: apartment Number of Children: 3 number of grandchildren: 5 Communication Needs: None Education Level: high school Do you need help understanding health information?: Rarely current occupation: disabled Pets and animals: No Sexually active: No Do you think of yourself as: straight/heterosexual Current gender identity: male What is your relationship status?: never How often do you talk on the phone with friends or family?: three or more times per week How often do you get together with friends or relatives?: three or more times per week How often do you attend roman catholic or hoahaoism services?: decline to answer Do you belong to any clubs or organized social groups?: no Panel score (0-1 are the most socially isolated patients): 1 What type of physical activity do you participate in: none Krissy/Rastafari: No preference Seatbelt use: never Helmet use: Yes Helmet use: always Drive intox or ride w/intox electric train driver: No Working smoke detector in home: Yes Fire extinguisher in home: Yes Carbon monox detector in home: Yes Do you feel safe at home: Yes Do you feel safe in your relationship?: Yes Would you like helpful sources: No Additional Social history: Gets help through [facility] POCUS Exam (ED) Limited Cardiac Exam DATE OF EXAM: 06/19/23 TIME OF EXAM: 10:53 PROVIDER THAT PERFORMED THE STUDY: Ismael Higginbotham IS THIS A REPEAT EXAM DURING THIS ENCOUNTER: no REASON FOR EXAM: Chest pain VISUALIZED STRUCTURES: Left ventricle and Interventricular septum VIEW OBTAINED: Apical 4-Chamber, Parasternal long-axis and Subxiphoid PERTINENT FINDINGS/IMPRESSION: No LV dysfunction and No pericardial effusion DIFFERENTIAL DIAGNOSES: Good squeeze, no significant pericardial effusion, RV less than LV INCIDENTAL FINDINGS: Good squeeze, no significant pericardial effusion, RV less than LV Exam complete
--- NOTE | 2023-06-19 10:00 | DI.RAD_ITS ---
Exam(s) XR CHEST 2V PA LATERAL EXAM: XR CHEST 2V PA LATERAL CLINICAL HISTORY: Shortness of breath TECHNIQUE: 2D digital imaging was performed. COMPARISON: CR,XR XR PORTABLE CHEST AP from 12/27/2021 FINDINGS: HEART: Normal size. Aorta: Not dilated. PULMONARY VASCULATURE: Normal. LUNGS: Clear. PLEURAL SPACE: No pleural effusion or pneumothorax. BONE:Unremarkable for age. Soft tissues: Unremarkable. IMPRESSION: No acute abnormality. DATA REPOSITORY: RADIATION DOSE DELIVERED:
--- NOTE | 2023-06-19 10:15 | RT.EKG_ITS ---
APPROVED REPORT Exam: Resting ECG Reason for Exam: Chest pain Patient Location: E HR:76 bpm ECG Measurements Heart Rate 76 AXIS VA 157 P 54 QRSd 101 QRS 89 QT 390 T 56 QTc 439 Conclusion Sinus rhythm...normal P axis, V-rate 60- 99 ST elev, probable normal early repol pattern...ST elevation, age<55 Normal sinus rhythm at a rate of 76 with interventricular conduction delay and a QRS of 101 ms. Norm al axis. VA and QTc within normal limits. Mild upsloping ST segment elevations diffusely. No ST se gment depressions. Compared to prior dated last year mild upsloping ST segment elevations are persis tent. QRS is similar. No acute injury pattern. No significant change compared to prior.
--- NOTE | 2023-06-19 10:15 | DI.RAD_ITS ---
Exam(s) XR KNEE LT 3V AP,LAT,JOSE EXAM: XR KNEE LT 3V AP,LAT,JOSE CLINICAL HISTORY: Left knee swelling. TECHNIQUE: 2D digital imaging was performed. Three views. COMPARISON: CR XR KNEE LT 3V AP,LAT,JOSE from 07/06/2022 FINDINGS: BONES: No acute fracture is present. No bony destructive lesion is seen. JOINTS: Mild periarticular spurring. The knee is normally aligned. small joint effusion . SOFT TISSUE: Normal. IMPRESSION: Mild degenerative changes. Small joint effusion. DATA REPOSITORY: RADIATION DOSE DELIVERED:
[2023-06-19 10:40] LABS: Abs Immature Grans 0.09 10^3/uL (0.0-0.06); Absolute Eosinophil Count 1.01 10^3/uL (0.0-0.7); Absolute Lymphocyte Count 4.62 10^3/uL (1.2-3.4); Absolute Monocyte Count 0.91 10^3/uL (0.1-0.8); Absolute Neutrophil Count 7.97 10^3/uL (1.2-6.7); Basophils % 0.7; Eosinophils % 6.9; HCT 47.9 % (40.0-50.0); HGB 15.7 g/dL (13.5-17.5); Immature Grans % 0.6; Lymphocytes % 31.4; MCH 29.7 pg (27.0-33.0); MCHC 32.8 % (32.0-36.0); MCV 91 fL (80-95); MPV 9.3 fL (8.0-11.0); Monocytes % 6.2; Neutrophils % 54.2; Platelet Count 351 10^3/uL (130-400); RBC 5.29 10^6/uL (4.36-5.78); RDW 13.1 % (11.8-14.1); RDW-SD 43.7 fL; WBC 14.71 10^3/uL (4.4-10.8)
[2023-06-19 11:03] LABS: ALT 26 U/L (16-63); AST 21 U/L (15-37); Albumin 3.5 g/dL (3.4-5.0); Alkaline Phosphatase 90 U/L (46-116); Anion Gap 5.7 mmol/L (3-11); BUN 16 mg/dL (7-18); Bilirubin, Total 0.5 mg/dL (0.2-1.0); CO2 31.3 mmol/L (21.0-32.0); Calcium 9.1 mg/dL (8.5-10.1); Chloride 103 mmol/L (98-107); Estimated GFR 92.26 (mL/min/1.73m2); Glucose 110 mg/dL (74-106); NT-proBNP 72 pg/mL (<300); Potassium 4.1 mmol/L (3.5-5.1); Sodium 140 mmol/L (136-145); Total Protein 7.6 g/dL (6.4-8.2); Troponin I < 50 ng/L (<or=60)
[2023-06-19 11:06] LABS: COVID-19 PCR Negative (Negative); Influenza A PCR Negative (Negative); Influenza B PCR Negative (Negative); RSV PCR Negative (Negative)
[2023-06-19 11:12] LABS: D-Dimer 591 ng/mlFEU (<500)
[2023-06-19 11:18] LABS: Source Nasopharynx
--- NOTE | 2023-06-19 11:44 | DI.VRAD_ITS ---
PROCEDURE INFORMATION: Exam: XR Left Knee Exam date and time: 06/19/2023 11:02 AM Age: 47 years old Clinical indication: Swelling or effusion of joint; Knee TECHNIQUE: Imaging protocol: Radiologic exam of the left knee. Views: 3 views. COMPARISON: CR XR KNEE LT 3V AP,LAT,JOSE 07/06/2022 8:35 AM FINDINGS: Bones/joints: Small effusion. No calcified joint body. Chronic mild patella degenerative spurring. Mild tibial spine spurring. Normal alignment. No fracture. Normal mineralization. Soft tissues: Normal. IMPRESSION: 1. Small but chronic increased knee joint effusion. 2. No fracture. 3. Chronic mild patella degenerative spurring. Dictated and Authenticated by: Paxton Wood MD. Ordering:TONG Guevara MD
--- NOTE | 2023-06-19 11:45 | DI.VRAD_ITS ---
PROCEDURE INFORMATION: Exam: XR Chest Exam date and time: 06/19/2023 11:00 AM Age: 47 years old Clinical indication: Shortness of breath TECHNIQUE: Imaging protocol: Radiologic exam of the chest. Views: 2 views. COMPARISON: CR XR PORTABLE CHEST AP 12/27/2021 10:30 PM FINDINGS: Lungs: Normally expanded and clear. Unremarkable tracheobronchial tree. Pleural spaces: Normal. Heart/Mediastinum: Unremarkable. Vasculature: Normal pulmonary vessels. Bones/joints: Intact and normally aligned. No suspicious lesion. Soft tissues: Unremarkable. IMPRESSION: No acute disease or suspicious finding. Dictated and Authenticated by: Paxton Wood MD. Ordering:TONG Guevara MD
[2023-06-19 13:41] LABS: Troponin I < 50 ng/L (<or=60)
[2023-06-19] MEDS: Doxycycline Hyclate 100 MG CAP PO (14:02)
[2023-06-19] MEDS: predniSONE 20 MG TAB 60 MG PO (14:02)
== END 2023-06-19 14:07 | disposition home or self-care (01) ==
PROVIDERS: Emergency Provider Emergency Medicine; PCP Nurse Practitioner
DX: R07.89 Other chest pain (principal); R22.42 Localized swelling, mass and lump, left lower limb; J44.9 Chronic obstructive pulmonary disease, unspecified; I10 Essential (primary) hypertension; F17.210 Nicotine dependence, cigarettes, uncomplicated; Z86.711 Personal history of pulmonary embolism; Z79.899 Other long term (current) drug therapy
CPT/HCPCS: 36415; 73562; 80053; 87637; 93005; 93308; 99284; 71046; 83880; 84484; 85025; 85379; 93010; J7512

== ENCOUNTER 2024-09-07 23:32 | Emergency (ER) | payer MEDICARE, MEDICAID, SELFPAY ==
[2024-09-07 23:33] VITALS: BP 207/115; PULSE 99; RESP 20; TEMP 35.9; O2SAT 100
--- NOTE | 2024-09-07 23:38 | W.ED.GENAD ---
Discharge Plan Disposition Patient Disposition: Home Discharge Details Clinical Impression: Foreign body (FB) in soft tissue, Essential hypertension Primary Care Provider: None,None ED Provider: Irvin Farnsworth Meds and New Rx's Prescriptions: No Action albuterol sulfate [Ventolin HFA] 90 mcg/actuation HFA aerosol inhaler See Rx Instructions .ROUTE .COMPLEX Qty: 18 12RF Dose Instruction: INHALE 2 PUFFS EVERY 4 HOURS NEEDED Rx Instructions: INHALE 2 PUFFS EVERY 4 HOURS NEEDED Discharge Instructions Instructions: High Blood Pressure ED, Foreign Body in Skin ED Additional Instructions: You were seen for foreign body that was embedded in your skin and removed at home. This appears to be a seed pod of some sort. The irritation and redness should improve with warm compresses and antibiotic ointment over the weekend. Your blood pressure was found to be markedly elevated here. Strongly suggest follow-up with primary care for repeat blood pressure check and consideration of medications if it continues to run high. Return to ED for any increasing pain, redness, swelling to the previous foreign body site or for chest pain or shortness of breath, neurologic change, severe headache. HPI General Mode of arrival: ambulatory. Date/Time Provider Initiated Documentation: 09/07/24 23:37. Limitations to Documentation: no limitations. Information obtained by: patient and RN notes reviewed. HPI Narrative: Patient presents to ED with a foreign body that he found in the left lateral chest. It was removed by a friend. There is still some redness and pain in the area where the foreign body was removed. Patient is not sure what the foreign body is. It is not little elongated been there. He does know he had irritation in the area all day and thought it was from his shirt. Related Data Home Medications ?Medication ?Instructions ?Recorded ?Confirmed albuterol sulfate 90 mcg/actuation See Rx Instructions .Route 02/28/23 09/07/24 aerosol inhaler (Ventolin HFA) .COMPLEX #18 grams Previous Rx's ?Medication ?Instructions ?Recorded albuterol sulfate 90 mcg/actuation See Rx Instructions .Route 02/28/23 aerosol inhaler (Ventolin HFA) .COMPLEX #18 grams Allergies Allergy/AdvReac Type Severity Reaction Status Date / Time sertraline Allergy Unknown PARADOXICAL Verified 09/07/24 23:40 REACTION serequi Allergy Severe Other (See Uncoded 09/07/24 23:40 Comment) General Stated Complaint: RashLesion VIDA: 4 Exam Narrative Exam Narrative: Const: Obese male in NAD. VS per triage. HEENT: NC/AT. Normal facial exam. Neck: Supple. Trachea midline. Lungs: Normal respiratory effort. Neuro: A+O x 3. Normal speech, mentation. Cranial nerves II - XII grossly intact. No gross motor or sensory deficit. Skin: Small circular area of erythema left lateral chest, no residual foreign body appreciated Course Vital Signs Vital signs: Vital Signs Temperature 96.7 F L 09/07/24 23:33 Pulse 99 H 09/07/24 23:33 Respiratory Rate 20 09/07/24 23:33 Blood Pressure 207/115 H 09/07/24 23:33 Pulse Oximetry 100 09/07/24 23:33 Temperature 96.7 F L 09/07/24 23:33 Temperature Source Tympanic 09/07/24 23:33 Pulse 99 H 09/07/24 23:33 Respiratory Rate 20 09/07/24 23:33 Blood Pressure 207/115 H 09/07/24 23:33 Blood Pressure Position Supine 09/07/24 23:33 Pulse Oximetry 100 09/07/24 23:33 Oxygen Delivery Method Room Air 09/07/24 23:33 Oxygen Flow Rate 0 09/07/24 23:33 Pain Level 6 09/07/24 23:33 Medical Decision Making Patient presents to ED with concern for foreign body that he found in his left lateral chest. He does have some erythema and a small circular area of the left lateral chest. There is no evidence of current foreign body. The foreign body he brought into the ED appears to be a seedlike object. It is not parasitic or insect toyed which is what his concern was. Recommend warm compresses and antibiotic ointment. Of note patient's blood pressure markedly elevated. Patient reports not being on anything for blood pressure. No complaint of concerning symptoms regarding blood pressure. Review of records shows that he is noncompliant with medical treatment and likely does have diagnosis of hypertension. I recommend close follow-up with primary care. Return precautions provided. PFSH All Active Problems (Updated 09/08/24 @ 00:22 by Irvin Farnsworth MD) Essential hypertension (Chronic) Foreign body (FB) in soft tissue (Acute) Sebaceous cyst (Acute) Newly recognized heart murmur (Acute) Internal derangement of left knee (Acute) Medical non-compliance (Acute) Noncompliance with CPAP treatment (Acute) Pre-diabetes (Acute) ARDS survivor (Acute) Nicotine dependence (Acute 01/11/12) 34-1 PPD Depressive disorder (Chronic 01/10/12) [facility] seen by Reji whipple 08/14/13, 11/20/13,02/18/14 10/28/19 Ov with EMETERIO Terrell [facility] Tobacco abuse (Acute 03/21/17) Suicide attempt by drug ingestion (Acute 03/10/16) quetiapine Poor diet (Acute 02/05/18) Obstructive sleep apnea syndrome (Acute 01/11/12) Dx'ed 2010 CPAP nightly Low HDL (under 40) (Acute 02/05/18) Exercise-induced asthma (Acute 02/19/14) 02/28/2014 PFTs reflect probable early asthma Exercise & hay are triggers Chronic post-traumatic stress disorder (Acute 01/11/12) 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, cps team lead MDD, R/O MADALYN, Personality Disorder Callus of foot (Acute 06/02/15) Medical History Obesity, unspecified (01/10/12) Essential hypertension Bipolar affective disorder (03/21/16) Pulmonary embolism (03/21/16) Asthma-COPD overlap syndrome MENDY (obstructive sleep apnea) Chronic post-traumatic stress disorder Surgical History H/O excision of epidermal inclusion cyst H/O umbilical hernia repair Family History Father Alcohol abuse Essential hypertension Sister Diabetes Mother Essential hypertension Lung disease Cancer Maternal Grandmother Heart disease Asthma Social History Smoking/Tobacco Use Status: Current every day Tobacco Type: cigarettes Smoking packs per day: 1 Smoking cigarettes per day: 20.0 Years smoked: 37 Smoking pack-years: 37.00 Tobacco: How many years used: 35 Quit status: has quit before Second Hand Exposure: Yes (as a child) Counseling given: other Details: pt declines help, I want to do it on my own Smoking risk assessment performed?: Yes Alcohol Intake: current Alcohol Intake frequency: holidays/special occasions only Alcohol type: beer Details: Reports he drinks 30 beers at once about twice a year Drug use: Never Substance use type: does not use Adopted: Yes Caregiver/Support person: No Household members: friend(s) Housing: apartment Number of Children: 3 number of grandchildren: 5 Communication Needs: None Education Level: high school Do you need help understanding health information?: Rarely current occupation: disabled Pets and animals: No Sexually active: No Do you think of yourself as: straight/heterosexual Current gender identity: male What is your relationship status?: never How often do you talk on the phone with friends or family?: three or more times per week How often do you get together with friends or relatives?: three or more times per week How often do you attend yazdanism or islam services?: decline to answer Do you belong to any clubs or organized social groups?: no Panel score (0-1 are the most socially isolated patients): 1 What type of physical activity do you participate in: none Krissy/Jehovah'S Witness: No preference Seatbelt use: never Helmet use: Yes Helmet use: always 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
== END 2024-09-07 23:53 | disposition home or self-care (01) ==
PROVIDERS: Emergency Provider Emergency Medicine
DX: M79.5 Residual foreign body in soft tissue (principal); I10 Essential (primary) hypertension; F17.210 Nicotine dependence, cigarettes, uncomplicated
CPT/HCPCS: 99282; 99283

== ENCOUNTER 2025-02-02 16:35 | Emergency (ER) | payer MEDICARE, SELFPAY ==
[2025-02-02] VITALS (30 sets, daily range): BP systolic 142–183; BP diastolic 68–93; PULSE 88–108; RESP 14–24; TEMP 37.2–37.9; O2SAT 93–99
--- NOTE | 2025-02-02 16:30 | RT.EKG_ITS ---
APPROVED REPORT Exam: Resting ECG Reason for Exam: sob Patient Location: E HR:105 bpm ECG Measurements Heart Rate 105 AXIS MO 150 P 50 QRSd 98 QRS 88 QT 364 T 64 QTc 481 Conclusion Sinus tachycardia, rate 105 No interval abnormalities No STEMI No significant changes from priors other than rate increase
--- NOTE | 2025-02-02 16:45 | DI.CT_ITS ---
Exam(s) CT CHEST PE CTA EXAM: CT CHEST PE CTA CLINICAL HISTORY: chest pain, shortness of breath. TECHNIQUE: Imaging Protocol: CT angiography of the chest was performed using pulmonary embolus protocol. Multi planar reconstructions were performed. CONTRAST MATERIAL: Intravenous: Omnipaque 350 Contrast volume: 100 cc COMPARISON: CT CT CHEST WO from 04/19/2021 FINDINGS: CHEST: PULMONARY ARTERIES: Less than optimal bolus injection. There are no obvious intraluminal filling defects to suggest acute pulmonary emboli. LUNGS: This patchy nodular infiltrate in the right upper lobe. Also mild subpleural infiltrate in the lateral basal segment of the right lower lobe and lateral basal segment of the left lower lobe and posterior basal segments of both lower lobes. There are no pleural effusions. No findings in the trachea and mainstem bronchi. MEDIASTINUM: There are enlarged subcarinal lymph nodes. Also enlarged right paratracheal lymph nodes. Small hilar lymph nodes. CARDIAC: Heart size is upper normal. There is no pericardial effusion.Caliber of the thoracic aorta is within normal limits. No evidence of aortic dissection. There is no significant shift of the interventricular septum. PARTIALLY VISUALIZED UPPERMOST ABDOMEN: Hepatic steatosis noted. Small nodule in genu of the right adrenal gland is probably a small 1 cm adenoma. OSSEOUS: No significant osseous lesions.. IMPRESSION: 1. No evidence of acute pulmonary emboli. No evidence of pulmonary infarction.No pleural effusions. 2. However, there is patchy and nodular infiltrate in the right upper lobe as well as subpleural infiltrates in the basal segments of both lower lobes. There are no pleural effusions. There is subcarinal and right paratracheal lymphadenopathy evident. 3. Hepatic steatosis noted. RADIATION DOSE DELIVERED: 264.53mGy.cm Total DLP DATA REPOSITORY: All CT scans at this facility are submitted to the National Radiology Data Registry (NRDR) Dose Index Registry (DIR) with the [employer] (ACR). RADIATION OPTIMIZATION: All CT scans at this facility use at least one of these dose optimization techniques: automated exposure control; mA and/or kV adjustment per patient size (includes targeted exams where dose is matched to clinical indication); or iterative reconstruction.
--- NOTE | 2025-02-02 17:19 | W.ED.GENAD ---
Discharge Plan Disposition Patient Disposition: Home Condition: Stable Discharge Details Clinical Impression: Pneumonia, Elevated WBC count, Low blood potassium Primary Care Provider: None,None ED Provider: Lynn Byrd Home Meds and New Rx's Prescriptions: New amoxicillin-pot clavulanate 875-125 mg tablet 1 tab PO BID Qty: 14 0RF doxycycline monohydrate 100 mg capsule 100 mg PO BID Qty: 14 0RF prednisone 20 mg tablet 40 mg PO ONCE Qty: 10 0RF Continued albuterol sulfate [Ventolin HFA] 90 mcg/actuation HFA aerosol inhaler See Rx Instructions .ROUTE .COMPLEX Qty: 18 12RF Dose Instruction: INHALE 2 PUFFS EVERY 4 HOURS NEEDED Rx Instructions: INHALE 2 PUFFS EVERY 4 HOURS NEEDED Discharge Instructions Instructions: Hypokalemia, Community-Acquired Pneumonia, Adult (DC) Additional Instructions: Use the inhaler with spacer 2 puffs every 4 hours Next you take the antibiotics until completed you have pneumonia Take the prednisone, you will need your antibiotics and prednisone which she will strip picker from the pharmacy tomorrow I have also placed referral to the on-call doctor for reassessment [facility] you may also try cane and internal however you may not still be an active patient Please return immediately should you develop fever, worsening shortness of breath, or should any new concerns arise. You will need reassessment within the next 48 to 72 hours and HPI General Date/Time Provider Initiated Documentation: 02/02/25 16:36. HPI Narrative: 49-year-old male with history of PE, COPD, tobacco use, and metabolic syndrome presents with dyspnea, chills, and intermittent pleuritic chest pain for 1.5 weeks. Unsure about fever. Not on anticoagulation. PE acquired from 18-day hospitalization at [facility] due to overdose. Productive cough. Denies new calf swelling or tenderness. Related Data Home Medications ?Medication ?Instructions ?Recorded ?Confirmed albuterol sulfate 90 mcg/actuation See Rx Instructions .Route 02/28/23 02/02/25 aerosol inhaler (Ventolin HFA) .COMPLEX #18 grams amoxicillin 875 mg-potassium 1 tab PO BID #14 tabs 02/02/25 clavulanate 125 mg tablet doxycycline monohydrate 100 mg 100 mg PO BID #14 caps 02/02/25 capsule prednisone 20 mg tablet 40 mg (2 x 20 mg) PO ONCE #10 tabs 02/02/25 Previous Rx's ?Medication ?Instructions ?Recorded albuterol sulfate 90 mcg/actuation See Rx Instructions .Route 02/28/23 aerosol inhaler (Ventolin HFA) .COMPLEX #18 grams amoxicillin 875 mg-potassium 1 tab PO BID #14 tabs 02/02/25 clavulanate 125 mg tablet doxycycline monohydrate 100 mg 100 mg PO BID #14 caps 02/02/25 capsule prednisone 20 mg tablet 40 mg (2 x 20 mg) PO ONCE #10 tabs 02/02/25 Allergies Allergy/AdvReac Type Severity Reaction Status Date / Time sertraline Allergy Unknown PARADOXICAL Verified 02/02/25 17:39 REACTION serequi Allergy Severe Other (See Uncoded 02/02/25 17:39 Comment) General Stated Complaint: Chest Pain VIDA: 3 Exam Narrative Exam Narrative: General Appearance: Alert, oriented, no acute distress, chronically ill, morbidly obese. Vital signs: Within normal limits. HEENT: Within normal limits. Respiratory: Wheezing throughout lungs. No respiratory distress. Cardiovascular: Gastrointestinal: No abdominal tenderness, bruit, or pulsatile mass. Extremities: Distal pulses intact in all extremities. Skin: Warm and dry, no rash. Neurological: Normal. Course Vital Signs Vital signs: Vital Signs Temperature 37.9 C H 02/02/25 16:39 Pulse 105 H 02/02/25 16:39 Respiratory Rate 23 02/02/25 16:39 Blood Pressure 164/87 H 02/02/25 16:39 Pulse Oximetry 97 02/02/25 16:39 Temperature 37.9 C H 02/02/25 16:39 Temperature Source Oral 02/02/25 16:39 Pulse 105 H 02/02/25 16:39 Respiratory Rate 24 02/02/25 16:47 Respiratory Effort Short of Breath, Labored 02/02/25 16:47 Respiratory Depth Normal 02/02/25 16:47 Respiratory Pattern Tachypnea 02/02/25 16:47 Blood Pressure 164/87 H 02/02/25 16:39 Pulse Oximetry 97 02/02/25 16:39 Oxygen Delivery Method Room Air 02/02/25 16:39 Oxygen Flow Rate 0 02/02/25 16:39 Pain Level 6 02/02/25 16:47 Medical Decision Making - Laboratory Studies: - Lactate: 2.2 - Leukocytosis: 18,000 - Neutrophil count: 10.6 - Creatinine: 1.4 - Glucose: 111 - Troponins: Two negative - Imaging (CT chest): - Bilateral infiltrates - No PE Initial Assessment: 49-year-old male with history of PE, COPD, tobacco use, metabolic syndrome, presents with dyspnea, chills, intermittent pleuritic chest pain for 1.5 weeks, productive cough. Denies new calf swelling or tenderness. Not anticoagulated. Unsure about fever. Alert, oriented, no acute distress, chronically ill, morbidly obese, wheezing throughout, no respiratory distress, reproducible chest wall pain, no abdominal tenderness, distal pulses intact, sinus tachycardia. Lactate 2.2. Differential Diagnosis: - Pneumonia: Bilateral infiltrates on CT chest. Leukocytosis 18,000 with neutrophil count 10.6. Hemodynamically stable. Augmentin, doxycycline, albuterol inhaler, prednisone prescribed. - Pulmonary embolism: No evidence on CT chest. Two negative troponins. No hypoxia. ED Course: CT chest: bilateral infiltrates, no PE. Two negative troponins. Augmentin, doxycycline administered. Albuterol inhaler, prednisone prescribed. Final Assessment: CT chest: bilateral infiltrates, no PE. Leukocytosis 18,000 with neutrophil count 10.6. Hemodynamically stable. Augmentin, doxycycline, albuterol inhaler, prednisone administered. Clinical Impression: - Pneumonia - Pulmonary embolism unlikely Disposition: Discharge home. Return precautions for new or worsening dyspnea, chest pain, persistent fevers. Urgent follow-up for reevaluation of pneumonia. Close outpatient follow-up needed. Patient education: Take albuterol every 4 hours, prednisone, Augmentin, doxycycline, and return for new or worsening complaints. A PFS All Active Problems (Updated 02/02/25 @ 20:07 by ANJANA Mustafa) Low blood potassium (Acute) Elevated WBC count (Acute) Pneumonia (Acute) Sebaceous cyst (Acute) Newly recognized heart murmur (Acute) Internal derangement of left knee (Acute) Medical non-compliance (Acute) Noncompliance with CPAP treatment (Acute) Pre-diabetes (Acute) ARDS survivor (Acute) Nicotine dependence (Acute 01/11/12) 3/4-1 PPD Depressive disorder (Chronic 01/10/12) [facility] seen by Reji whipple 08/14/13, 11/20/13,02/18/14 10/28/19 Ov with EMETERIO Terrell [facility] Tobacco abuse (Acute 03/21/17) Suicide attempt by drug ingestion (Acute 03/10/16) quetiapine Poor diet (Acute 02/05/18) Obstructive sleep apnea syndrome (Acute 01/11/12) Dx'ed 2010 CPAP nightly Low HDL (under 40) (Acute 02/05/18) Exercise-induced asthma (Acute 02/19/14) 02/28/2014 PFTs reflect probable early asthma Exercise & hay are triggers Chronic post-traumatic stress disorder (Acute 01/11/12) 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, frequency checker MDD, R/O MADALYN, Personality Disorder Callus of foot (Acute 06/02/15) Medical History Obesity, unspecified (01/10/12) Essential hypertension Bipolar affective disorder (03/21/16) Pulmonary embolism (03/21/16) Asthma-COPD overlap syndrome MENDY (obstructive sleep apnea) Chronic post-traumatic stress disorder Surgical History H/O excision of epidermal inclusion cyst H/O umbilical hernia repair Family History Father Alcohol abuse Essential hypertension Sister Diabetes Mother Essential hypertension Lung disease Cancer Maternal Grandmother Heart disease Asthma Social History Smoking/Tobacco Use Status: Current every day Tobacco Type: cigarettes Smoking packs per day: 1 Smoking cigarettes per day: 20.0 Years smoked: 37 Smoking pack-years: 37.00 Tobacco: How many years used: 35 Quit status: has quit before Second Hand Exposure: Yes (as a child) Counseling given: other Details: pt declines help, I want to do it on my own Smoking risk assessment performed?: Yes Alcohol Intake: current Alcohol Intake frequency: holidays/special occasions only Alcohol type: beer Details: Reports he drinks 30 beers at once about twice a year Drug use: Never Substance use type: does not use Adopted: Yes Caregiver/Support person: No Household members: friend(s) Housing: apartment Number of Children: 3 number of grandchildren: 5 Communication Needs: None Education Level: high school Do you need help understanding health information?: Rarely current occupation: disabled Pets and animals: No Sexually active: No Do you think of yourself as: straight/heterosexual Current gender identity: male What is your relationship status?: never How often do you talk on the phone with friends or family?: three or more times per week How often do you get together with friends or relatives?: three or more times per week How often do you attend samaritan or yazdanism services?: decline to answer Do you belong to any clubs or organized social groups?: no Panel score (0-1 are the most socially isolated patients): 1 What type of physical activity do you participate in: none Krissy/Lutheran: No preference Seatbelt use: never Helmet use: Yes Helmet use: always 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
[2025-02-02] MEDS: Normal Saline 1,000 ML 1000 ML IV (17:23)
[2025-02-02] MEDS: Albuterol/Ipratropium 3 ML UPD VIAL UPD ×2 (17:23→19:43)
[2025-02-02] MEDS: methylPREDNISolone SUCC 125 MG VIAL IVP (17:23)
[2025-02-02] MEDS: ACETAMINOPHEN 500 MG/50 ML BAG 200 MG IVPB (17:25)
[2025-02-02 17:28] LABS: Abs Immature Grans 0.13 10^3/uL (0.0-0.06); HCT 42.2 % (40.0-50.0); HGB 13.8 g/dL (13.5-17.5); Immature Grans % 0.7 %; MCH 29.7 pg (27.0-33.0); MCHC 32.7 % (32.0-36.0); MCV 91 fL (80-95); MPV 9.4 fL (8.0-11.0); Platelet Count 284 10^3/uL (130-400); RBC 4.64 10^6/uL (4.36-5.78); RDW 13.7 % (11.8-14.1); RDW-SD 45.4 fL; WBC 18.04 10^3/uL (4.4-10.8)
[2025-02-02] MEDS: Omnipaque 350 MG/ML 100 ML BTL IJ (17:38)
[2025-02-02] MEDS: Normal Saline - Diluent 50 ML VIAL IJ (17:39)
[2025-02-02] MEDS: Normal Saline Flush 10 ML SYR IVP (17:40)
[2025-02-02 17:56] LABS: ALT 29 U/L (16-63); AST 29 U/L (15-37); Albumin 3.3 g/dL (3.4-5.0); Alkaline Phosphatase 89 U/L (46-116); Anion Gap 6.5 mmol/L (3-11); BUN 13 mg/dL (7-18); Bilirubin, Total 0.5 mg/dL (0.2-1.0); CO2 29.5 mmol/L (21.0-32.0); Calcium 8.8 mg/dL (8.5-10.1); Chloride 102 mmol/L (98-107); Estimated GFR 60.85 (mL/min/1.73m2); Glucose 111 mg/dL (74-106); NT-proBNP 182 pg/mL (<300); Potassium 3.3 mmol/L (3.5-5.1); Sodium 138 mmol/L (136-145); Total Protein 7.3 g/dL (6.4-8.2); Troponin I 19 ng/L (<or=76)
[2025-02-02 17:57] LABS: COVID-19 PCR Negative (Negative); RSV PCR Negative (Negative)
[2025-02-02] MEDS: Normal Saline 500 ML IV (18:35)
[2025-02-02 18:53] LABS: Troponin I 19 ng/L (<or=76)
--- NOTE | 2025-02-02 19:35 | DI.[facility]_ITS ---
PROCEDURE INFORMATION: Exam: CTA Chest With Contrast Exam date and time: 02/02/2025 5:33 PM Age: 49 years old Clinical indication: Other: Chest pain, shortness of breath TECHNIQUE: Imaging protocol: Computed tomographic angiography of the chest with contrast. Exam focused on the arteries. 3D rendering (Not supervised by radiologist): MIP and/or 3D reconstructed images were created by the technologist. Contrast material: 350; Contrast volume: 100 ml; Contrast route: INTRAVENOUS (IV); COMPARISON: CT CHEST WO 04/19/2021 2:24 PM FINDINGS: Limitations: Examination limited by body habitus. Pulmonary arteries: No acute pulmonary embolus. Aorta: Unremarkable. No aortic aneurysm. No aortic dissection. Lungs: Patchy pulmonary opacities are present within the right upper lobe. Probable dependent atelectasis is present at the bilateral lung bases. Pleural spaces: Unremarkable. No pneumothorax. No pleural effusion. Heart: Heart is normal size. No pericardial effusion. Lymph nodes: There are multiple shotty mediastinal nodes, some of which meet the pathologic size criteria of greater than 1 cm in diameter. For example, a pretracheal node measures 1.5 cm in diameter. No axillary adenopathy. Bones/joints: Bones have a normal appearance. No acute fracture or suspicious bone lesion. Soft tissues: Unremarkable. IMPRESSION: 1. Patchy airspace opacities within the right upper lobe suspicious for aspiration/infection. Short interval follow-up recommended to ensure resolution and exclude underlying neoplasm. 2. Limited study given body habitus. No pulmonary embolus. Dictated and Authenticated by: Larissa Mtz MD. Orderin Rochelle Bailey MD
[2025-02-02] MEDS: Potassium Chloride 20 MEQ TABCR 40 MEQ PO (20:11)
[2025-02-02] MEDS: Doxycycline Hyclate 100 MG, 2 CAPS/BTL PO (20:12)
[2025-02-02] MEDS: Albuterol HFA 8 GM 60 PUFF INH IH (20:13)
[2025-02-02] MEDS: Amox. 875/Clav. 125, 2 TABS/BTL 1 TAB PO (20:13)
== END 2025-02-02 22:21 | disposition home or self-care (01) ==
PROVIDERS: Emergency Provider Physician Assistant
DX: J18.9 Pneumonia, unspecified organism (principal); E87.6 Hypokalemia; D72.829 Elevated white blood cell count, unspecified; R06.02 Shortness of breath; I10 Essential (primary) hypertension; R50.9 Fever, unspecified; Z72.0 Tobacco use
CPT/HCPCS: 36415; 71275; 80053; 87637; 93005; 94640; 96361; 96374; 96375; 99285; 83880; 84484; 85025; 93010; 99284; J0131; J2919; J3490; J7620

== ENCOUNTER 2025-06-08 19:03 | Emergency (ER) | payer MEDICARE, SELFPAY ==
[2025-06-08] VITALS (32 sets, daily range): BP systolic 144–183; BP diastolic 83–142; PULSE 93–110; RESP 17–22; TEMP 36.4; O2SAT 90–96
--- NOTE | 2025-06-08 19:00 | RT.EKG_ITS ---
APPROVED REPORT Exam: Resting ECG Reason for Exam: rapid HR Patient Location: E HR:104 bpm ECG Measurements Heart Rate 104 AXIS IA 171 P 60 QRSd 97 QRS 42 QT 356 T 79 QTc 469 Conclusion Sinus tachycardia...rate> 99 No STEMI
[2025-06-08 20:05] LABS: HCT 48.8 % (40.0-50.0); HGB 16.1 g/dL (13.5-17.5); MCH 29.5 pg (27.0-33.0); MCHC 33.0 % (32.0-36.0); MCV 89 fL (80-95); MPV 9.2 fL (8.0-11.0); Platelet Count 370 10^3/uL (130-400); RBC 5.46 10^6/uL (4.36-5.78); RDW 12.9 % (11.8-14.1); RDW-SD 42.1 fL; WBC 18.22 10^3/uL (4.4-10.8)
[2025-06-08 20:14] LABS: INR 1.0 (0.9-1.1); PTT Activated 24.6 sec (20.6-30.2); Prothrombin Time 9.4 sec (9.1-11.1)
[2025-06-08 20:20] LABS: Troponin I 23 ng/L (<54)
[2025-06-08 20:24] LABS: Abs Immature Grans 0.09 10^3/uL (0.0-0.06); HCT 48.9 % (40.0-50.0); HGB 16.0 g/dL (13.5-17.5); Immature Grans % 0.5 %; MCH 29.2 pg (27.0-33.0); MCHC 32.7 % (32.0-36.0); MCV 89 fL (80-95); MPV 9.4 fL (8.0-11.0); Platelet Count 361 10^3/uL (130-400); RBC 5.48 10^6/uL (4.36-5.78); RDW 12.9 % (11.8-14.1); RDW-SD 41.9 fL; WBC 18.13 10^3/uL (4.4-10.8)
[2025-06-08 20:37] LABS: ALT 38 U/L (10-49); AST 38 U/L (<34); Albumin 4.6 g/dL (3.2-5.0); Alkaline Phosphatase 97 U/L (46-116); Anion Gap 9.4 mmol/L (3-11); BUN 19 mg/dL (9-23); Bilirubin, Total 0.5 mg/dL (0.2-1.2); CO2 29.6 mmol/L (20.0-31.0); Calcium 9.2 mg/dL (8.3-10.6); Chloride 102 mmol/L (98-107); Glucose 133 mg/dL (74-106); Potassium 3.4 mmol/L (3.5-5.1); Sodium 141 mmol/L (136-145); Total Protein 8.3 g/dL (5.7-8.2)
[2025-06-08 20:57] LABS: Troponin I 21 ng/L (<54)
[2025-06-08 21:19] LABS: D-Dimer 596 ng/mlFEU (<500)
--- NOTE | 2025-06-08 22:15 | DI.CT_ITS ---
Exam(s) CT CHEST PE CTA EXAM: CT CHEST PE CTA CLINICAL HISTORY: chest pain. TECHNIQUE: Imaging Protocol: Axial CT angiography was performed with multi- slice acquisition and multi-planar and/or 3D reconstructions. Lung Computer Aided Detection (CAD) was utilized. CONTRAST MATERIAL: Intravenous: Omnipaque 350 contrast volume:100 mL COMPARISON: CT CT CHEST WO from 04/19/2021 CR,XR XR CHEST 2V PA LATERAL from 06/19/[address] CHEST PE CTA from 02/02/2025 FINDINGS: Tracheobronchial tree: Patent where visualized. No bronchiectasis. Pulmonary parenchyma: No consolidation or dominant measurable mass. There is atelectasis in the lung bases. Pulmonary Arteries: There is suboptimal visualization of all of the subsegmental pulmonary arteries. No evidence of a pulmonary embolism to the level of the segmental arteries is noted. Mediastinum and Ling: No dominant adenopathy or fluid collection. The esophagus is unremarkable. Visualized thyroid gland: Unremarkable. Pleura: No effusion or pneumothorax. Heart: The heart is not dilated. No coronary artery calcifications are seen. No pericardial effusion. Aorta: Thoracic aorta non-dilated. No evidence of dissection. Upper abdomen: Unremarkable. Soft tissues: Unremarkable. Bones: Within normal limits for the patient's age. IMPRESSION: 1. No evidence of pulmonary embolism, thoracic aortic dissection or aneurysm. 2. There is no acute pulmonary process. 3. The preliminary [facility] report was reviewed. RADIATION DOSE DELIVERED: 254.04mGy.cm Total DLP DATA REPOSITORY: All CT scans at this facility are submitted to the National Radiology Data Registry (NRDR) Dose Index Registry (DIR) with the [employer] (ACR). RADIATION OPTIMIZATION: All CT scans at this facility use at least one of these dose optimization techniques: automated exposure control; mA and/or kV adjustment per patient size (includes targeted exams where dose is matched to clinical indication); or iterative reconstruction.
[2025-06-08] MEDS: Metoclopramide 10 MG/2 ML VIAL IVP (22:20)
[2025-06-08] MEDS: Acetaminophen 325 MG TAB 650 MG PO (22:20)
[2025-06-08 22:46] LABS: Troponin I 24 ng/L (<54)
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
[2025-06-08] MEDS: Potassium Chloride 20 MEQ TABCR PO (23:07)
[2025-06-08] MEDS: Losartan 25 MG TAB 50 MG PO (23:07)
[2025-06-08] MEDS: Omnipaque 350 MG/ML 100 ML BTL IJ (23:24)
[2025-06-08] MEDS: Normal Saline - Diluent 50 ML VIAL IJ (23:24)
[2025-06-09] VITALS (8 sets, daily range): BP systolic 120–186; BP diastolic 70–109; PULSE 88–101; RESP 16–23; O2SAT 91–96
--- NOTE | 2025-06-09 00:16 | DI.VRAD_ITS ---
PROCEDURE INFORMATION: Exam: CTA Chest With Contrast Exam date and time: 06/08/2025 11:14 PM Age: 49 years old Clinical indication: Other: Chest pain TECHNIQUE: Imaging protocol: Computed tomographic angiography of the chest with contrast. Exam focused on the arteries. 3D rendering (Not supervised by radiologist): MIP and/or 3D reconstructed images were created by the technologist. Contrast material: 350; Contrast volume: 100 ml; Contrast route: INTRAVENOUS (IV); COMPARISON: CT CHEST PE CTA 02/02/2025 5:33 PM FINDINGS: Pulmonary arteries: No acute pulmonary embolus. Aorta: Unremarkable. No aortic aneurysm. No aortic dissection. Lungs: Mild atelectasis is present at the dependent lung bases. The lungs are otherwise clear. Pleural spaces: Unremarkable. No pneumothorax. No pleural effusion. Heart: Heart is normal size. No pericardial effusion. Lymph nodes: There are multiple shotty subcentimeter mediastinal and hilar lymph nodes. No lymph nodes which meet the pathologic size criteria. Bones/joints: Bones have a normal appearance. No acute fracture or suspicious bone lesion. Soft tissues: Unremarkable. IMPRESSION: 1. No pulmonary embolus. 2. No acute pulmonary findings. Dictated and Authenticated by: Larissa Mtz MD. Orderin Rochelle Bailey MD
--- NOTE | 2025-06-09 00:23 | ED.PROG_ITS ---
Date of service: 06/09/25 Time of Service: 00:23 Medical Decision Making This is a 49-year-old male who was signed out to me by my colleague Lynn Byrd. Please refer to her HPI, physical exam, assessment and plan. At time of signout we are awaiting 3-hour troponin as well as CTA of the chest. Repeat/delta troponins are stable, no evidence to suggest ACS or STEMI. CTA of the chest shows no acute process, no PE, no pneumonia, no pneumothorax. On review of the patient's lab he does have an elevated white count, however the patient's chronically elevated for his white count on review of prior labs throughout the last few years. On reassessment patient feels well, chest pain has notably improved. He feels well and would like to go home. At this time signs and symptoms appear clinically inconsistent with ACS, STEMI, dissection or PE. Patient will be discharged home. Discussed red flags which to return. I have extensively reviewed the treatment plan and discharge instructions with the patient. I have addressed all patient concerns at this time. The patient was made aware of what symptoms to monitor for that would warrant a return to the emergency department. Discussed the plan with the patient, they demonstrate verbal understanding and agreement with our assessment and plan at this time. The documentation in this chart was dictated using [employer] dictation software. Please excuse any dictation errors. FINDINGS: Pulmonary arteries: No acute pulmonary embolus. Aorta: Unremarkable. No aortic aneurysm. No aortic dissection. Lungs: Mild atelectasis is present at the dependent lung bases. The lungs are otherwise clear. Pleural spaces: Unremarkable. No pneumothorax. No pleural effusion. Heart: Heart is normal size. No pericardial effusion. Lymph nodes: There are multiple shotty subcentimeter mediastinal and hilar lymph nodes. No lymph nodes which meet the pathologic size criteria. Bones/joints: Bones have a normal appearance. No acute fracture or suspicious bone lesion. Soft tissues: Unremarkable. IMPRESSION: 1. No pulmonary embolus. 2. No acute pulmonary findings Thank you for allowing us to participate in the care of your patient. Dictated and Authenticated by: Larissa Mtz MD 06/09/2025 12:16 AM Eastern Time ([place] & [place]) Discharge Plan Disposition Patient Disposition: Home Condition: Stable Discharge Details Clinical Impression: Elevated blood pressure reading, Headache, Chest pain Primary Care Provider: Yan Brown ED Provider: Manuel Pak Home Meds and New Rx's Prescriptions: Continued albuterol sulfate [Ventolin HFA] 90 mcg/actuation HFA aerosol inhaler See Rx Instructions .ROUTE .COMPLEX Qty: 18 12RF Dose Instruction: INHALE 2 PUFFS EVERY 4 HOURS NEEDED Rx Instructions: INHALE 2 PUFFS EVERY 4 HOURS NEEDED albuterol sulfate [Ventolin HFA] 90 mcg/actuation HFA aerosol inhaler 2 puff inhalation QID PRN (Reason: shortness of breath or wheezing) Qty: 8.5 11RF losartan 50 mg tablet 50 mg PO DAILY Qty: 60 0RF Discharge Instructions Instructions: Chest Pain (DC) Additional Instructions: Please start taking your losartan at home Follow-up with your primary care physician tomorrow for reassessment You may take Tylenol as needed for headache Recommend an outpatient stress test certainly at the discretion of your primary care physician Your tests today are largely reassuring, please be reevaluated should you Persistent, new, or worsening symptoms If you notice any worsening of your symptoms, or any new symptoms such as vomiting, diarrhea, fever, chills, shortness of breath, chest pain, numbness, weakness, or fainting , please return immediately to the emergency department for reevaluation. Please follow up with your primary care provider as soon as possible for reassessment and reevaluation. As always, it was a pleasure participating in your medical care today. Stand Alone Forms: Portal Information Referrals: Yan Brown APRN [Primary Care Provider, [facility] Practice]
== END 2025-06-09 01:06 | disposition home or self-care (01) ==
PROVIDERS: Physician Assistant; Emergency Provider Student in an Organized Health Care Education/Training Program
DX: R07.9 Chest pain, unspecified (principal); R51.9 Headache, unspecified; R03.0 Elevated blood-pressure reading, without diagnosis of hypertension
CPT/HCPCS: 00123; 36415; 71275; 80053; 85027; 93005; 96374; 99285; 84484; 85025; 85379; 85610; 85730; 93010; 99284; J2765; J3490